=== PATIENT | male | born 1945 | race Caucasian/White ===

== ENCOUNTER → 2023-12-08 12:50 | Outpatient (REF) | payer MEDICARE, OTHER, SELFPAY ==
[2023-12-08 16:36] LABS: PSA, Total - Diagnostic 0.07 ng/ml (0.0-4.0)
== END ==
LOC: HWLAB 12:50
PROVIDERS: ATTENDING PHYSICIAN Specialist; FAMILY PHYSICIAN Family Medicine
DX: C61 Malignant neoplasm of prostate (principal)
CPT/HCPCS: 36415; 84153

== ENCOUNTER → 2024-03-22 12:41 | Outpatient (REF) | payer MEDICARE, SELFPAY | LOC: HWRAD 12:41 | PROVIDERS: ATTENDING PHYSICIAN Internal Medicine Cardiovascular Disease; FAMILY PHYSICIAN Family Medicine | DX: I71.21 Aneurysm of the ascending aorta, without rupture (principal) | CPT/HCPCS: 71250 ==

== ENCOUNTER → 2024-08-08 10:56 | Outpatient (REF) | payer MEDICARE, SELFPAY ==
[2024-08-08 16:10] LABS: ALT (SGPT) 21 U/L (0-50); AST (SGOT) 28 U/L (17-59); Albumin 4.4 g/dl (3.5-5.0); Alkaline Phosphatase 94 U/L (38-126); Blood Urea Nitrogen 19 mg/dl (9-20); Calcium 9.7 mg/dl (8.4-10.2); Carbon Dioxide 25 mmol/L (22-30); Chloride 106 mmol/L (98-107); Glucose 89 mg/dl (70-99); HDL Cholesterol 46 mg/dl; LDL Cholesterol, Calculated 57 mg/dl; Potassium 4.8 mmol/L (3.5-5.1); Sodium 142 mmol/L (135-145); Total Bilirubin 1.5 mg/dl (0.2-1.3); Total Cholesterol 116 mg/dl (50-199); Triglyceride 66 mg/dl (10-149); Very Low Density Lipoprotein 13 mg/dl (0-30); eGFR > 60.00
[2024-08-08 16:40] LABS: TSH 3.39 uIU/ml (0.47-4.68)
== END ==
LOC: HWLAB 10:56
PROVIDERS: ATTENDING PHYSICIAN Family Medicine; REFERRING PHYSICIAN Internal Medicine Cardiovascular Disease
DX: E78.5 Hyperlipidemia, unspecified (principal)
CPT/HCPCS: 36415; 80053; 80061; 84443

== ENCOUNTER 2024-09-28 11:39 | Emergency (ER) | payer MEDICARE, SELFPAY ==
[2024-09-28 11:43] VITALS: BP 114/77
--- NOTE | 2024-09-28 12:35 | ED.GENMED ---
History of Present Illness
<Shital Wolfe PA-C - Last Filed: 09/28/24 19:17>
General
Chief Complaint: Skin Surface Trauma
Source: patient
Exam Limitations: none
Time Seen by Provider: 09/28/24 12:23
Nursing documentation reviewed up to this point in time: agreed with
History of Present Illness
History of Present Illness:
79-year-old male past medical history of A-fib on Coumadin presents emergency department today with concerns of a bleeding from a skin tear. Patient reports that he was walking in his living room when he went to sit down in his recliner and when he
was pulling back the recliner, he cut his leg on the recliner handle. Patient states that he did not fall or did not lose consciousness. Patient states that the wound would not stop bleeding. Patient states that last time this happened he had
sutured the wound. Patient takes Coumadin for A-fib and is followed by cardiology
Past History
<Shital Wolfe PA-C - Last Filed: 09/28/24 19:17>
Past History
ED Past Medical History: Arrthythmia (afin), HTN, Hypercholesterolemia and Other (aortic sten)
ED Past Surgical History: Appendectomy and Orthopedic
Patient has exhibited threatening behavior?: No
PSI?: No
Social History
Personal:
Living: with family
Employment: Retired
Review of Systems
<Shital Wolef PA-C - Last Filed: 09/28/24 19:17>
Review of Systems
All Other Systems: ROS reviewed and negative except as documented in HPI and ROS
Phy Exam
<Shital Wolfe PA-C - Last Filed: 09/28/24 19:17>
Physical Exam
Physical Exam:
General: Patient is well appearing and in no acute distress; non-toxic
Skin: Actively bleeding 8 cm skin tear/laceration noted to the right anterior leg
Head: Normocephalic, atraumatic
Eyes: Sclera non-icteric. EOMs intact. PERRLA.
Cardiac: Regular rate and rhythm, no murmurs
Peripheral Vascular: No lower extremity swelling or edema, 2+ dorsalis pedis and posterior tibial pulses bilaterally
Pulm: Normal respiratory effort
Neuro: CN II-XII intact, no focal neurologic deficits.
Psychiatric: Appropriate mood and affect.
Course
<Shital Wolfe PA-C - Last Filed: 09/28/24 19:17>
Vital Signs
Initial and Last Documented VS:
Initial Vital Signs
Temp Pulse Resp BP Pulse Ox
98.4 F 70 16 114/77 96
09/28/24 11:43 09/28/24 11:43 09/28/24 11:43 09/28/24 11:43 09/28/24 11:43
Last Documented Vital Signs
Temp Pulse Resp BP Pulse Ox
98.4 F 70 16 114/77 96
09/28/24 11:43 09/28/24 11:43 09/28/24 12:22 09/28/24 11:43 09/28/24 11:43
<Jaime Loomis DO - Last Filed: 09/28/24 13:08>
Vital Signs
Initial and Last Documented VS:
Initial Vital Signs
Temp Pulse Resp BP Pulse Ox
98.4 F 70 16 114/77 96
09/28/24 11:43 09/28/24 11:43 09/28/24 11:43 09/28/24 11:43 09/28/24 11:43
Last Documented Vital Signs
Temp Pulse Resp BP Pulse Ox
98.4 F 70 16 114/77 96
09/28/24 11:43 09/28/24 11:43 09/28/24 12:22 09/28/24 11:43 09/28/24 11:43
Procedures
<Shital Wolfe PA-C - Last Filed: 09/28/24 19:17>
Laceration Closure
Right Anterior Leg:
Status of Wound: clean
Size of Wound in cm: 8
Description of Wound Edges: flap-well vascularized
Preparation: cleaned with saline
Anesthesia: 1% Lidocaine with epi
Revision/Debridement: minor revision
Wound exploration: explored to base- no FB
Type of Closure: single layer closure
Skin Closure Material: 4-0 prolene
Number of sutures: 4
Additional information:
The top of the wound was closed with 4 sutures, the bottom of the wound was attempted to be approximated with sutures however the sutures tore to the skin and the wound was approximated with Steri-Strips. Surgicel was also applied to ablate
bleeding area. Wound pressure dressing
<Shital Wolfe PA-C - Last Filed: 09/28/24 19:17>
MDM/Problems Addressed
Differential Diagnosis Includes:
see below
MDM/Problems Addressed:
NUMBER AND COMPLEXITY OF PROBLEMS ADDRESSED AT THE ENCOUNTER
� Chronic conditions affecting care: A-fib on Coumadin, CHF
� Acute Exacerbation and/or Progression of Chronic Illness:
� Differential Diagnosis includes: Actively bleeding wound, abrasion, laceration, neurovascular injury
AMOUNT AND/OR COMPLEXITY OF DATA TO BE REVIEWED AND ANALYZED
� I performed an independent evaluation of and my interpretation is:
X-rays: No indication for x-ray at this time
Other:
� Review of other/old records: Reviewed previous ER physician documentation, reviewed discharge summary from 05/20/2023 patient seen for dislocation of hip
� Clinical information was obtained by an independent historian: present with patient who also provided history regarding injury
� Prescriptions/Medications Considered but not given: none
� Further testing considered but not performed: X-rays not indicated at this time
RISK OF COMPLICATIONS AND/OR MORBIDITY OR MORTALITY OF PATIENT MANAGEMENT
� Social determinants of health affecting care: None
� Discussion with other providers: ER attending
� Escalation of care including admission/observation vs risk of discharge considered:
79-year-old male on Coumadin presents emergency department today with a skin tear. Is a well-vascularized flap. This was repaired using a combination of stitches and Steri-Strips. Patient was placed in a pressure dressing. Patient stable for
discharge.
<Shital Wolfe PA-C - Last Filed: 09/28/24 19:17>
*Pulse Oximetry
Patient hypoxic: no
*Critical Care Note
Total Time (30-74mins, 75-104mins- exclusive of procedures): Not Applicable
ED Attending Note
<Shital Wolfe PA-C - Last Filed: 09/28/24 19:17>
-
Portions of this chart may have been created with voice recognition software.� Occasional wrong word or��sound alike� substitutions may have occurred due to the inherent limitations of voice recognition software.
<Jaime Loomis DO - Last Filed: 09/28/24 13:08>
ED Attending Note
Patient seen and examined by attending physician: Yes
I performed the substantive portion of visit, reviewed & personally made and approve the management plan that is documented in note by myself or EILEEN.: Yes
ED Attending Note:
I evaluated the patient at bedside. The patient does have a rather large skin tear over the right mae. He states tetanus status is up-to-date. Will try to suture.
Discharge Plan
Departure
Patient Disposition: Home (Routine Discharge)
Date of Disposition: 09/28/24
Time of Disposition: 13:35
Patient with high blood pressure during this ER visit?: Yes
Condition: Good
Discharge Problem:
Laceration, Skin tear
Instructions: Laceration Repair With Stitches ([place]), [facility], BLOOD PRESSURE
Prescriptions:
No Action
pravastatin 40 MG tablet
40 mg PO HS
atenolol 25 MG tablet
25 mg PO HS 0RF
levothyroxine 50 MCG tablet
50 mcg PO DAILY
solifenacin [Vesicare] 10 MG tablet
10 mg PO HS
methenamine hippurate 1 GRAM tablet
1 g PO BID 0RF
warfarin [Jantoven] 5 MG tablet
5 mg PO HS Qty: 1 0RF
Rx Instructions:
Home medication.
Target INR for at least 2 weeks is 2.0 to 2.5 while joint is healing
digoxin 0.125 MG tablet
0.125 mg PO DAILY
Patient Comments:
per pt takes it every other day
Rx Instructions:
Hold if systolic blood pressure <130 while on Oxycodone.
mupirocin 2 % ointment
1 applic topical BID Qty: 1 0RF
Patient Comments:
patient has been applying to b/l nares since 06/05 pm , patient did apply to b/l nares thia am
famotidine 20 mg tablet
20 mg PO HS Qty: 30 0RF
Rx Instructions:
post-op
dexamethasone 4 mg tablet
4 mg PO BID Qty: 6 0RF
Rx Instructions:
take with food
post-op use only
docusate sodium [Colace] 100 mg capsule
100 mg PO BID Qty: 1 0RF
sennosides [Senokot] 8.6 mg tablet
17.2 mg PO BID Qty: 2 0RF
magnesium hydroxide [Milk of Magnesia] 400 mg/5 mL suspension
30 ml PO HS PRN (Reason: Constipation) Qty: 1 0RF
oxycodone 5 mg tablet
5 - 10 mg PO Q6HPRN PRN (Reason: 1 tab moderate-2 tabs severe pain) Qty: 30 0RF
Rx Instructions:
Dx surgery
ongoing therapy
Post-op use
acetaminophen 500 MG tablet
1,000 mg PO QID Qty: 0 0RF
Rx Instructions:
Do not exceed >4000 mg daily.
Referrals:
Justo Urrutia MD [Family Provider] -
Activity Restrictions/Additional Instructions:
4 stitches were placed at the top of your wound. You will need to have these taken out in 7-10 days.
Please keep our dressing in place for 24 hours. After 24 hours, you can change dressing once daily.
Please do not remove steri-strips, they should fall off on their own as the wound heels.
Please keep your leg elevated at home, this will help control the bleeding and oozing from your wound.
Please return to the emergency department should you experience dizziness, lightheadedness, persistent bleeding, chest pain, shortness of breath, or any other signs or symptoms concerning to you.
Interventions
Interventions:
*Risk Screen - Suicide Last Done: 09/28/24 11:43
*General Assessment Last Done: 09/28/24 11:43
*Neglect/Abuse Screening Last Done: 09/28/24 11:43
ED- Fall Risk Assessment Last Done: 09/28/24 13:55
*ED COVID-19 Vaccine History Last Done: 09/28/24 11:43
*Nursing Disposition Last Done: 09/28/24 13:55
ED-Skin Assessment Last Done: 09/28/24 13:53
Discharge Date and Time
Discharge Date/Time: 09/28/24 13:57
Print Language: [id number]
== END 2024-09-28 13:57 | disposition home or self-care (01) ==
LOC: EMR 11:39
PROVIDERS: EMERGENCY PHYSICIAN Emergency Medicine; FAMILY PHYSICIAN Family Medicine
DX: S81.811A Laceration without foreign body, right lower leg, initial encounter (principal); W26.9XXA Contact with unspecified sharp object(s), initial encounter; I11.0 Hypertensive heart disease with heart failure; I50.9 Heart failure, unspecified; I48.91 Unspecified atrial fibrillation
CPT/HCPCS: 99282; 12004

== ENCOUNTER → 2024-10-31 10:05 | Outpatient (REF) | payer MEDICARE, SELFPAY ==
[2024-10-31 11:03] LABS: % Basophils 1.4 % (0-2); % Eosinophils 17.1 % (0-6); % Immature Granulocytes 0.2 % (0-0.5); % Lymphocytes 16.6 % (20.5-51.1); % Monocytes 9.8 % (1.7-9.3); % Neutrophils 54.9 % (42.2-75.2); Absolute Basophils 0.1 10^3/uL (0-0.2); Absolute Eosinophils 1.1 10^3/uL (0-0.7); Absolute Lymphocytes 1.1 10^3/uL (1.2-3.4); Absolute Monocytes 0.6 10^3/uL (0.1-0.6); Absolute Neutrophils 3.5 10^3/uL (1.4-6.5); Hematocrit 41.4 % (39.0-52.0); Hemoglobin 13.9 g/dL (13.0-18.0); Mean Corp Hgb Conc. 33.6 g/dL (33.0-37.0); Mean Corpuscular Hgb 32.3 pg (27.0-31.0); Mean Corpuscular Volume 96.1 fL (80.0-94.0); Mean Platelet Volume 10.7 fL (7.4-10.4); Nucleated Red Blood Cells % 0 % (-); Platelet Count 121 10^3/uL (130-400); Red Blood Cell Count 4.31 10^6/uL (4.70-6.10); Red Cell Dist. Width 13.9 % (11.5-14.5); White Blood Cell Count 6.3 10^3/uL (4.8-10.8)
[2024-10-31 11:33] LABS: NT-proBNP 1540 pg/ml
[2024-10-31 11:46] LABS: Albumin 4.2 g/dl (3.5-5.0); Blood Urea Nitrogen 25 mg/dl (9-20); Calcium 9.5 mg/dl (8.4-10.2); Carbon Dioxide 32 mmol/L (22-30); Chloride 99 mmol/L (98-107); Glucose 50 mg/dl (70-99); Phosphorus 3.7 mg/dl (2.5-4.5); Potassium 4.3 mmol/L (3.5-5.1); Sodium 141 mmol/L (135-145); eGFR > 60.00
== END ==
LOC: RCS 10:05
PROVIDERS: ATTENDING PHYSICIAN Internal Medicine Cardiovascular Disease; FAMILY PHYSICIAN Family Medicine
DX: Z86.79 Personal history of other diseases of the circulatory system (principal); I50.31 Acute diastolic (congestive) heart failure
CPT/HCPCS: 36415; 80069; 83880; 85025; 93306

== ENCOUNTER → 2024-11-03 15:59 | Outpatient (REF) | payer MEDICARE, SELFPAY ==
[2024-11-03 17:26] LABS: INR 2.26; PT 25.1 Sec (11.4-14.6)
[2024-11-03 17:27] LABS: APTT 47.6 Sec (23.4-35.0)
[2024-11-03 17:39] LABS: Albumin 4.2 g/dl (3.5-5.0); Blood Urea Nitrogen 34 mg/dl (9-20); Calcium 9.5 mg/dl (8.4-10.2); Carbon Dioxide 31 mmol/L (22-30); Glucose 88 mg/dl (70-99); Phosphorus 3.6 mg/dl (2.5-4.5); eGFR > 60.00
[2024-11-03 17:42] LABS: Chloride 100 mmol/L (98-107); Potassium 4.4 mmol/L (3.5-5.1); Sodium 138 mmol/L (135-145)
== END ==
LOC: REG 15:59
PROVIDERS: ATTENDING PHYSICIAN Internal Medicine Cardiovascular Disease; FAMILY PHYSICIAN Family Medicine
DX: I48.0 Paroxysmal atrial fibrillation (principal)
CPT/HCPCS: 36415; 80069; 85610; 85730

== ENCOUNTER → 2024-11-22 06:43 | Outpatient (REF) | payer MEDICARE, SELFPAY ==
[2024-11-22 11:29] LABS: Blood Urea Nitrogen 42 mg/dl (9-20); Calcium 9.6 mg/dl (8.4-10.2); Carbon Dioxide 23 mmol/L (22-30); Chloride 105 mmol/L (98-107); Glucose 117 mg/dl (70-99); Potassium 4.3 mmol/L (3.5-5.1); Sodium 140 mmol/L (135-145); eGFR > 60.00
[2024-11-22 11:38] LABS: Glycohemoglobin (HgbA1c) 5.3 % (4.0-5.6)
== END ==
LOC: HWLAB 06:43
PROVIDERS: ATTENDING PHYSICIAN Internal Medicine Gastroenterology; FAMILY PHYSICIAN Family Medicine; REFERRING PHYSICIAN Thoracic Surgery (Cardiothoracic Vascular Surgery)
DX: I71.21 Aneurysm of the ascending aorta, without rupture (principal); Z01.818 Encounter for other preprocedural examination; E16.2 Hypoglycemia, unspecified
CPT/HCPCS: 36415; 71250; 80048; 83036

== ENCOUNTER → 2025-01-24 12:59 | Outpatient (REF) | payer MEDICARE, SELFPAY ==
[2025-01-24 16:50] LABS: PSA, Total - Diagnostic 3.82 ng/ml (0.0-4.0)
== END ==
LOC: HWLAB 12:59
PROVIDERS: ATTENDING PHYSICIAN Specialist; FAMILY PHYSICIAN Family Medicine
DX: C61 Malignant neoplasm of prostate (principal)
CPT/HCPCS: 36415; 84153

== ENCOUNTER → 2025-03-02 11:22 | Outpatient (REF) | payer MEDICARE, SELFPAY ==
[2025-03-02 16:41] LABS: % Basophils 0.7 % (0-2); % Eosinophils 7.4 % (0-6); % Immature Granulocytes 0.4 % (0-0.5); % Lymphocytes 12.3 % (20.5-51.1); % Monocytes 9.5 % (1.7-9.3); % Neutrophils 69.7 % (42.2-75.2); Absolute Eosinophils 0.4 10^3/uL (0-0.7); Absolute Lymphocytes 0.7 10^3/uL (1.2-3.4); Absolute Monocytes 0.5 10^3/uL (0.1-0.6); Hematocrit 37.8 % (39.0-52.0); Hemoglobin 12.4 g/dL (13.0-18.0); Mean Corp Hgb Conc. 32.8 g/dL (33.0-37.0); Mean Corpuscular Volume 94.5 fL (80.0-94.0); Nucleated Red Blood Cells % 0 % (-); Platelet Count 114 10^3/uL (130-400); Red Cell Dist. Width 14.8 % (11.5-14.5); White Blood Cell Count 5.7 10^3/uL (4.8-10.8)
== END ==
LOC: HWLAB 11:22
PROVIDERS: ATTENDING PHYSICIAN Internal Medicine Gastroenterology; FAMILY PHYSICIAN Family Medicine; REFERRING PHYSICIAN Internal Medicine Cardiovascular Disease
DX: K62.5 Hemorrhage of anus and rectum (principal)
CPT/HCPCS: 36415; 85025

== ENCOUNTER 2025-07-17 13:06 | Inpatient (IN) | payer MEDICARE, SELFPAY ==
[2025-07-17] VITALS (52 sets, daily range): BP systolic 72–125; BP diastolic 41–78; BMI 27.5; BMI 28.3
--- NOTE | 2025-07-17 11:22 | ED.GENMED ---
History of Present Illness
<aCrlos Bower PA-C - Last Filed: 07/17/25 14:10>
General
Chief Complaint: Fever
Source: patient, records and ambulance crew
Time Seen by Provider: 07/17/25 10:58
History of Present Illness
History of Present Illness:
80-year-old male with extensive cardiac past medical history including atrial fibrillation, CHF, previous endocarditis status post pacemaker placement and aortic valve/mitral valve replacement, history of prostate cancer status post prostatectomy
presenting to the ER with EMS from home where he lives with his for evaluation of fever and generalized weakness for the last few days, unable to get up and out of bed, had soiled himself with both urine and stool. Unclear as to how long
patient has been in bed unable to get up, he is awake alert and oriented at time of my exam and is currently without any pain. He did note that he had some pain to his bilateral lower extremities a couple of days ago but that it was not anything
out of the ordinary for him. He denies any abdominal pain or URI-like symptoms. No known sick contacts although patient does note his at home currently has a fractured ankle and unable to help him get around the house.
Past History
<Carlos Bower PA-C - Last Filed: 07/17/25 14:10>
Past History
ED Past Medical History: Arrthythmia (afin), CHF, HTN, Hypercholesterolemia, Valvular disease and Other (aortic sten)
ED Past Surgical History: Appendectomy, Cardiac, Orthopedic, Urological and Other
Patient has exhibited threatening behavior?: No
PSI?: No
Social History
Tobacco: Non-smoker
Alcohol: None
Drug: None
Personal:
Living: with family
Employment: Retired
Review of Systems
<Carlos Bower PA-C - Last Filed: 07/17/25 14:10>
Review of Systems
All Other Systems: ROS reviewed and negative except as documented in HPI and ROS
Phy Exam
<Carlos Bower PA-C - Last Filed: 07/17/25 14:10>
Physical Exam
Physical Exam:
GENERAL: Alert , in no apparent distress, somewhat pale, dry mucous membranes, malodorous and soiled in brown stool
EYE: clear conjunctiva b/l
HEAD: NCAT
ENT: o/p clr, dry mucous membranes
CARDIAC: Regular rate and rhythm .
LUNGS: Clear breath sounds bilaterally, no acute respiratory distress, no wheezes/rales/rhonchi
ABDOMEN: Soft, without focal tenderness, no r/g, no cvat
NEUROLOGICAL: Alert and oriented
SKIN: Warm and dry, skin intact.
MUSCULOSKELETAL: Left lower extremity is edematous compared to the right, ruborous/erythematous, no tenderness and intact and equal sensation compared to the right lower extremity. The right lower extremity is slightly dusky in appearance, cooler
to the touch but intact and equal sensation throughout and able to range of motion the knee ankle and digits without difficulty
PSYCH: Normal and appropriate interaction.
Scores
<Carlos Bower PA-C - Last Filed: 07/17/25 14:10>
Heart Failure Risk
Heart Failure Risk Score: Not Applicable
Heart Score for Chest Pain Patients
STEMI patient?: Not applicable
Withdrawal Assessment of Alcohol
Withdrawal Assessment Completed?: Not applicable
Sepsis
<Carlos Bower PA-C - Last Filed: 07/17/25 14:10>
Sepsis Screening
Sepsis Assessment: Severe Sepsis
Sepsis Screening: Lactate >2mmol/L and ARF-Creatinine >2.0
Sepsis Screen
Sepsis Screen: Severe Sepsis
Date: 07/17/25
Time: 14:10
Course
<Carlos Bower PA-C - Last Filed: 07/17/25 14:10>
Orders/Labs/Results
Orders:
Orders
07/17/25 11:10
Cardiac Monitoring- Treatment ONCE
STOOL [C difficile Antigen & Toxins] Urgent
TY Source: Feces/Stool
Specimen Description:
Stool Culture Urgent
TY Source: Feces/Stool
Specimen Description:
0.9% Sodium Chloride 1000 ml [Nss] 2,000 ml IV NOW STA
07/17/25 11:11
Electrocardiogram (*1) Urgent
Reason for Study: Other
Other Reason for Exam: sepsis
EKG- Treatment ONCE
CR Chest Portable - 1 View Urgent
Comment:
Reason For Exam: weakness, fever
Reason Study Needs to be Portable: Patient Unstable
07/17/25 11:28
COVID-19 Antigen Urgent
Source: Nasal Swab
CPK [Creatine Phosphokinase] Urgent
Complete Blood Count/With Diff Urgent
Comprehensive Metabolic Panel Urgent
Lactic Acid Q4H
Comment: CANCEL 2nd LACTIC ACID IF 1st LACTIC ACID IS LESS THAN 2
Manual Differential Urgent
PTT Urgent
Prothrombin Time Urgent
Blood Culture Q30M
TY Source: Blood/Venous
Specimen Description:
Influenza A+B Rapid Molecular Urgent
TY Source: Nasal Swab
Specimen Description:
07/17/25 11:33
Urinalysis Reflex To Culture Urgent
Date Specimen was Collected: 07/17/25
Time Specimen was Collected: 11:28
Urine Microscopic Reflex Cult Urgent
Blood Culture Q30M
TY Source: Blood/Venous
Specimen Description:
Urine Culture Urgent
TY Source: U
Specimen Description:
Date Specimen was Collected: 07/17/25
Time Specimen was Collected: 11:28
07/17/25 12:04
0.9% Sodium Chloride 1000 ml [Nss] 1,000 ml IV BOLUS
Acetaminophen [Tylenol] 1,000 mg PO NOW STA
07/17/25 12:10
Piperacillin/Tazo 4.5 Gram [Zosyn] 4.5 gram in 100 ml IV NOW
07/17/25 12:23
CT Abd/pel Without Iv Or Oral Urgent
Comment:
Reason For Exam: sepsis, eval for urinary obstruction
07/17/25 12:27
Vancomycin [Vancocin] 2,000 mg 0.9% Sodium Chloride 500 ml [Nss] 500 ml IV NOW
07/17/25 12:53
Admit/Transfer Patient As Directed
Co-Sign Provider:
Level of Care: Inpatient admission
Assign to:: Telemetry
Physician / Group: moise
Diagnosis: sepsis cellulitis
Reason for Telemetry: Arrhythmia
Date to Stop Telemetry: 07/20/25
Time to Stop Telemetry: 11:00
Reason for Hospitalization: sepsis cellulitis
Expected length of stay greater than two midnights?: Yes
ELOS- Estimated Length of Stay in days: 2
I certify the patient meets the requirements for IP care: Yes
07/17/25 12:54
Code Status As Directed
Resuscitation Status: Full Code
PRN Pain Medication Management As Directed
May give lesser potent ordered pain med per pt: Yes
preference::
Protocol:: Medication orders for pain may be administered in a
manner that supports deferring to patient preference
when the pt is:
- Requesting an ordered lesser potent pain medication.
Least to most potent pain medications are defined
as: acetaminophen < NSAID < tramadol < opioids
(morphine, oxycodone, hydromorphone).
- Requesting a lesser dose of the same medication IF
ORDERED.
- Requesting a less intrusive route of administration
if both routes are prescribed by the provider (PO <
IV).
07/17/25 15:15
Lactic Acid Q4H
Comment: CANCEL 2nd LACTIC ACID IF 1st LACTIC ACID IS LESS THAN 2
07/20/25 11:00
DC Protocol for Telemetry ONCE
Abnormal Lab Results
07/17/25 07/17/25
11:28 11:33
RBC 4.30 L 10^6/uL
(4.70-6.10)
MCV 95.3 H fL
(80.0-94.0)
MCH 32.8 H pg
(27.0-31.0)
RDW 15.3 H %
(11.5-14.5)
Plt Count 79 L 10^3/uL
(130-400)
MPV 11.3 H fL
(7.4-10.4)
Abs Neuts (Manual) 7.6 H 10^3/uL
(1.4-6.5)
Band Neutrophils 34 H %
(0-3)
PT 34.6 H Sec
(11.4-14.6)
APTT 52.2 H Sec
(23.4-35.0)
Sodium 134 L mmol/L
(135-145)
Carbon Dioxide 20 L mmol/L
(22-30)
BUN 59 H mg/dl
(9-20)
Creatinine 2.3 H mg/dL
(0.7-1.3)
Lactic Acid 3.5 H mmol/L
(0.7-2.0)
Total Bilirubin 3.7 H mg/dl
(0.2-1.3)
AST 77 H U/L
(17-59)
Creatine Kinase 994 H U/L
(55-170)
Ur Occult Blood Reflex 4+ A
(Negative)
Urine Bilirubin 1+ A
(Negative)
Leukocyte Esterase Rfl 2+ A
(Negative)
Urine RBC 11-15 A /HPF
(0-2)
Urine WBC (Reflex) 26-30 A /HPF
(0-5)
Urine Bacteria (Reflex) Moderate A
(Negative)
Urine Albumin (Reflex) 3+ A
(Neg - Trace)
07/17/25 11:28
07/17/25 11:28
Vital Signs
Initial and Last Documented VS:
Initial Vital Signs
BP
115/60
07/17/25 11:19
Last Documented Vital Signs
Temp Pulse Resp BP Pulse Ox
103.1 F H 72 36 125/54 91
07/17/25 11:23 07/17/25 14:00 07/17/25 14:00 07/17/25 13:00 07/17/25 13:45
Alllt;Skyler Reaves, DO - Last Filed: 07/17/25 12:29>
Orders/Labs/Results
Orders:
Orders
07/17/25 11:10
Cardiac Monitoring- Treatment ONCE
STOOL [C difficile Antigen & Toxins] Urgent
TY Source: Feces/Stool
Specimen Description:
Stool Culture Urgent
TY Source: Feces/Stool
Specimen Description:
0.9% Sodium Chloride 1000 ml [Nss] 2,000 ml IV NOW STA
07/17/25 11:11
Electrocardiogram (*1) Urgent
Reason for Study: Other
Other Reason for Exam: sepsis
EKG- Treatment ONCE
CR Chest Portable - 1 View Urgent
Comment:
Reason For Exam: weakness, fever
Reason Study Needs to be Portable: Patient Unstable
07/17/25 11:28
COVID-19 Antigen Urgent
Source: Nasal Swab
CPK [Creatine Phosphokinase] Urgent
Complete Blood Count/With Diff Urgent
Comprehensive Metabolic Panel Urgent
Lactic Acid Q4H
Comment: CANCEL 2nd LACTIC ACID IF 1st LACTIC ACID IS LESS THAN 2
Manual Differential Urgent
PTT Urgent
Prothrombin Time Urgent
Blood Culture Q30M
TY Source: Blood/Venous
Specimen Description:
Influenza A+B Rapid Molecular Urgent
TY Source: Nasal Swab
Specimen Description:
07/17/25 11:33
Urinalysis Reflex To Culture Urgent
Date Specimen was Collected: 07/17/25
Time Specimen was Collected: 11:28
Urine Microscopic Reflex Cult Urgent
Blood Culture Q30M
TY Source: Blood/Venous
Specimen Description:
Urine Culture Urgent
TY Source: U
Specimen Description:
Date Specimen was Collected: 07/17/25
Time Specimen was Collected: 11:28
07/17/25 12:04
0.9% Sodium Chloride 1000 ml [Nss] 1,000 ml IV BOLUS
Acetaminophen [Tylenol] 1,000 mg PO NOW STA
07/17/25 12:10
Piperacillin/Tazo 4.5 Gram [Zosyn] 4.5 gram in 100 ml IV NOW
07/17/25 12:23
CT Abd/pel Without Iv Or Oral Urgent
Comment:
Reason For Exam: sepsis, eval for urinary obstruction
07/17/25 12:27
Vancomycin [Vancocin] 2,000 mg 0.9% Sodium Chloride 500 ml [Nss] 500 ml IV NOW
07/17/25 12:53
Admit/Transfer Patient As Directed
Co-Sign Provider:
Level of Care: Inpatient admission
Assign to:: Telemetry
Physician / Group: moise
Diagnosis: sepsis cellulitis
Reason for Telemetry: Arrhythmia
Date to Stop Telemetry: 07/20/25
Time to Stop Telemetry: 11:00
Reason for Hospitalization: sepsis cellulitis
Expected length of stay greater than two midnights?: Yes
ELOS- Estimated Length of Stay in days: 2
I certify the patient meets the requirements for IP care: Yes
07/17/25 12:54
Code Status As Directed
Resuscitation Status: Full Code
PRN Pain Medication Management As Directed
May give lesser potent ordered pain med per pt: Yes
preference::
Protocol:: Medication orders for pain may be administered in a
manner that supports deferring to patient preference
when the pt is:
- Requesting an ordered lesser potent pain medication.
Least to most potent pain medications are defined
as: acetaminophen < NSAID < tramadol < opioids
(morphine, oxycodone, hydromorphone).
- Requesting a lesser dose of the same medication IF
ORDERED.
- Requesting a less intrusive route of administration
if both routes are prescribed by the provider (PO <
IV).
07/17/25 15:15
Lactic Acid Q4H
Comment: CANCEL 2nd LACTIC ACID IF 1st LACTIC ACID IS LESS THAN 2
07/20/25 11:00
DC Protocol for Telemetry ONCE
Abnormal Lab Results
07/17/25 07/17/25
11:28 11:33
RBC 4.30 L 10^6/uL
(4.70-6.10)
MCV 95.3 H fL
(80.0-94.0)
MCH 32.8 H pg
(27.0-31.0)
RDW 15.3 H %
(11.5-14.5)
Plt Count 79 L 10^3/uL
(130-400)
MPV 11.3 H fL
(7.4-10.4)
Abs Neuts (Manual) 7.6 H 10^3/uL
(1.4-6.5)
Band Neutrophils 34 H %
(0-3)
PT 34.6 H Sec
(11.4-14.6)
APTT 52.2 H Sec
(23.4-35.0)
Sodium 134 L mmol/L
(135-145)
Carbon Dioxide 20 L mmol/L
(22-30)
BUN 59 H mg/dl
(9-20)
Creatinine 2.3 H mg/dL
(0.7-1.3)
Lactic Acid 3.5 H mmol/L
(0.7-2.0)
Total Bilirubin 3.7 H mg/dl
(0.2-1.3)
AST 77 H U/L
(17-59)
Creatine Kinase 994 H U/L
(55-170)
Ur Occult Blood Reflex 4+ A
(Negative)
Urine Bilirubin 1+ A
(Negative)
Leukocyte Esterase Rfl 2+ A
(Negative)
Urine RBC 11-15 A /HPF
(0-2)
Urine WBC (Reflex) 26-30 A /HPF
(0-5)
Urine Bacteria (Reflex) Moderate A
(Negative)
Urine Albumin (Reflex) 3+ A
(Neg - Trace)
07/17/25 11:28
07/17/25 11:28
Vital Signs
Initial and Last Documented VS:
Initial Vital Signs
BP
115/60
07/17/25 11:19
Last Documented Vital Signs
Temp Pulse Resp BP Pulse Ox
103.1 F H 72 36 125/54 91
07/17/25 11:23 07/17/25 14:00 07/17/25 14:00 07/17/25 13:00 07/17/25 13:45
<Carlos Bower PA-C - Last Filed: 07/17/25 14:10>
MDM/Problems Addressed
Differential Diagnosis Includes:
Sepsis
Bacteremia
C. difficile or other infectious diarrhea
Dehydration
Electrolyte imbalance
Acute kidney injury
Rhabdomyolysis
UTI
COVID/flu/other viral etiology
MDM/Problems Addressed:
80-year-old male presenting to the ER for evaluation of fever, generalized weakness, had been laying in bed for an extended period of time, patient so weak unable to get out of bed to use the restroom and had soiled himself in the bed. Patient
arrives covered in brown stool. No focal symptoms. Sepsis workup initiated. Fluids ordered. Anticipate admission.
<Carlos Bower PA-C - Last Filed: 07/17/25 14:10>
*Radiology
Radiology exam reviewed: radiology read reviewed
*Pulse Oximetry
SaO2: 98
Oxygen Mode of Delivery: Room air
Patient hypoxic: no
*[employer] Interpretation
Rate: normal
Heart Rate: 86
Rhythm: sinus
*Critical Care Note
Total Time (30-74mins, 75-104mins- exclusive of procedures): 30
comment:
Critical care statement: A total of 30 minutes of critical care time was provided for this patient. This includes management of unstable vital signs, evaluation of the patient at bedside, reviewing the patient's pertinent medical records, discussion
with consultants, review of old EKGs and review of pertinent medical records. This time with separate from time utilized to perform the aforementioned documented procedures
Data Reviewed
Review of Other/Old Records Reveals: Labs and Records
<Carlos Bower PA-C - Last Filed: 07/17/25 14:10>
Patient Management
Discussion with other providers: Hospitalist
Escalation/DeEscalation of care consider admission/obs:
Patient's labs show a significant acute kidney injury and rhabdomyolysis. Lactic acid greater than 3. Question urinary tract infection. Broad-spectrum antibiotics ordered for infectious etiologies. Hospitalist team notified and accepts for
continued evaluation and treatment of sepsis.
ED Attending Note
<Carlos Bower PA-C - Last Filed: 07/17/25 14:10>
-
Portions of this chart may have been created with voice recognition software.� Occasional wrong word or��sound alike� substitutions may have occurred due to the inherent limitations of voice recognition software.
<Skyler Reaves DO - Last Filed: 07/17/25 12:29>
ED Attending Note
Patient seen and examined by attending physician: Yes
I performed the substantive portion of visit, reviewed & personally made and approve the management plan that is documented in note by myself or EILEEN.: Yes
ED Attending Note:
I agree with Augustin's note
Patient presents with fever, chills, body aches.
General: Awake, patient appears ill, tremors versus rigors
Vitals: Febrile, tachycardia
Head: Atraumatic
Eyes: Pupils equal, EOMI
Throat: Airway intact, no exudates, dry mucosa
Neck: Trachea midline
Lungs: Coarse breath sound
Heart: Regular rate, no murmurs
Abd: Soft, Nontender, No pulsatile mass
Neuro: Grossly nonfocal
Skin: Warm, dry, no rash
Extremities: pulses equal b/l, left leg shows significant edema, erythema.
Sepsis from cellulitis, urinary tract infection, perhaps obstructing stone. Sepsis fluid bolus ordered by Augustin. Broad-spectrum IV antibiotics ordered. Will get a CT to make sure there is no obstructing stone. Patient obviously require
hospitalization to IMU over the ICU.
Discharge Plan
Departure
Patient Disposition: Admit
Date of Disposition: 07/17/25
Time of Disposition: 12:22
Presentation/result/management discussed w/ accepting MD/DO: Hospitalist
Discharge Problem:
Sepsis, TANA (acute kidney injury), Rhabdomyolysis
Interventions
Interventions:
*Risk Screen - Suicide Last Done: 07/17/25 11:26
*General Assessment Last Done: 07/17/25 11:26
*Neglect/Abuse Screening Last Done: 07/17/25 11:26
*ED- Fall Risk Assessment Last Done: 07/17/25 11:26
*ED COVID-19 Vaccine History Last Done: 07/17/25 11:26
*ED Influenza Vaccine History Last Done: 07/17/25 11:26
ED- Neurological Assessment Last Done: 07/17/25 11:47
ED-Skin Assessment Last Done: 07/17/25 11:47
[2025-07-17] MEDS: NSS 2000 ML IV (11:39)
[2025-07-17 12:01] LABS: Hematocrit 41.0 % (39.0-52.0); Hemoglobin 14.1 g/dL (13.0-18.0); Mean Corp Hgb Conc. 34.4 g/dL (33.0-37.0); Mean Corpuscular Volume 95.3 fL (80.0-94.0); Platelet Count 79 10^3/uL (130-400); Red Cell Dist. Width 15.3 % (11.5-14.5)
[2025-07-17 12:03] LABS: INR 3.46; PT 34.6 Sec (11.4-14.6)
[2025-07-17 12:04] LABS: APTT 52.2 Sec (23.4-35.0)
[2025-07-17 12:07] LABS: ALT (SGPT) 33 U/L (0-50); AST (SGOT) 77 U/L (17-59); Alkaline Phosphatase 65 U/L (38-126); Blood Urea Nitrogen 59 mg/dl (9-20); Calcium 8.9 mg/dl (8.4-10.2); Carbon Dioxide 20 mmol/L (22-30); Chloride 103 mmol/L (98-107); Estimated Creatinine Clearance 32 ml/min; Glucose 73 mg/dl (70-99); Potassium 5.0 mmol/L (3.5-5.1); Sodium 134 mmol/L (135-145); Total Protein 7.6 g/dl (6.3-8.2); eGFR 28.35
[2025-07-17 12:11] LABS: Urine Character Clear (Clear)
[2025-07-17] MEDS: NSS 1000 IV ×2 (12:15→18:00)
[2025-07-17] MEDS: TYLENOL 1000 MG PO (12:15)
[2025-07-17] MEDS: ZOSYN 100 IV (12:15)
[2025-07-17 12:16] LABS: Albumin 3.7 g/dl (3.5-5.0)
[2025-07-17 12:23] LABS: COVID-19 Antigen Negative (Negative)
[2025-07-17 12:30] LABS: Urine Squamous Cell 16-20 /LPF (Few); Urine Urothelial Cell 0-2 /LPF (FEW)
[2025-07-17 12:32] LABS: Urine White Cell 26-30 /HPF (0-5)
[2025-07-17] MEDS: VANCOCIN 540 MG IV (12:52)
--- NOTE | 2025-07-17 12:58 | HPS.HSE ---
Family Physician
-
Family Physician: NOT KNOW UNKNOWN - PT DOES
Chief Complaint
-
weakness
History of Present Illness
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
bioprosthetic status post aortic root dissection in 2014, thoracic aortic aneurysm, hypertension, constipation, essential tremor, prostate cancer in 2002 status post radical prostatectomy and radiation, hypothyroidism, overactive bladder,
thrombocytopenia, osteoarthritis, hyperlipidemia, bleeding from rectal prolapse, presenting for fever and generalized weakness for the past few days. He was unable to get out of bed and soiled himself with both urine and stool. Unclear as to how
long patient was in bed. He did have some pain in his bilateral lower extremities a couple days ago which is nothing out of ordinary for him. He complains of left lower extremity redness and pain and swelling at this time. Denies abdominal pain
or upper respiratory infection symptoms. Denies urinary symptoms. Denies any sick contacts.
He states that he occasionally has rectal bleeding secondary to a rectal prolapse. He has chronic urinary incontinence after
Denies smoking or alcohol use.
Medical History
Past Medical History
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
bioprosthetic status post aortic root dissection in 2014, thoracic aortic aneurysm, hypertension, c)
Past Surgical History: Reports None
Social History
Tobacco: Non-smoker
Alcohol: None
Drug: None
Family History
Family History: Not pertinent
Allergies / Home Medications
Allergies reflects when Allergies were last updated in [facility].
Home Medications with original date entered in [facility]
Allergy/Medication List:
Allergies
Allergy/AdvReac Type Severity Reaction Status Date / Time
bromide salts ([place]) Allergy Rash Verified 09/28/24 11:54
Home Medications
pravastatin 40 mg tablet 40 mg PO HS High cholesterol 08/01/08
atenolol 25 mg tablet 25 mg PO HS 07/28/17
levothyroxine 50 mcg tablet 50 mcg PO DAILY Thyroid 06/18/21
solifenacin 10 mg tablet (Vesicare) 10 mg PO HS OVERACTIVE BLADDER 06/18/21
methenamine hippurate 1 gram tablet 1 g PO BID 07/09/21
warfarin 5 mg tablet (Jantoven) 5 mg PO HS #1 tab 09/10/21
digoxin 125 mcg (0.125 mg) tablet 0.125 mg PO DAILY Heart disease/condition 05/19/23
mupirocin 2 % topical ointment 1 applic topical BID infection prevention #1 tube 05/21/23
acetaminophen 500 mg tablet 1,000 mg (2 x 500 mg) PO QID #0 tabs 06/09/23
dexamethasone 4 mg tablet 4 mg PO BID inflammation #6 tabs 06/09/23
docusate sodium 100 mg capsule (Colace) 100 mg PO BID stool softner #1 cap 06/09/23
famotidine 20 mg tablet 20 mg PO HS GI prophylaxis #30 tabs 06/09/23
magnesium hydroxide 400 mg/5 mL oral suspension (Milk of Magnesia) 30 ml PO HS PRN Constipation #1 mL 06/09/23
oxycodone 5 mg tablet 5 - 10 mg (1 - 2 x 5 mg) PO Q6HPRN PRN 1 tab moderate-2 tabs severe pain #30 tabs 06/09/23
sennosides 8.6 mg tablet (Senokot) 17.2 mg (2 x 8.6 mg) PO BID laxative #2 tabs 06/09/23
Review of Systems
-
History Source: Patient
A 12 point ROS was completed and negative except as noted: Yes
Constitutional: Reports No Symptoms
EENT: Reports No Symptoms
Respiratory: Reports No Symptoms
Cardiac: Reports No Symptoms
Abdomen/GI: Reports No Symptoms
: Reports No Symptoms
Musculoskeletal: Reports No Symptoms
Skin: Reports See HPI
Neurological: Reports No Symptoms
Endocrine: Reports No Symptoms
Hematologic/Lymphatic: Reports No Symptoms
Psych: Reports No Symptoms
Physical Exam
Vital Signs
Vital Signs
Temp Pulse Resp BP Pulse Ox
103.1 F H 80 27 115/60 92
07/17/25 11:23 07/17/25 11:45 07/17/25 11:45 07/17/25 11:23 07/17/25 11:47
Physical Exam
General: Well Developed, Well Nourished and No Apparent Distress
HEENT: NormoCephalic, Moist mucous membranes and Atraumatic
Respiratory: Clear
Cardiac: S1/S2 and Regular Rhythm; No Murmur or Rub
GI: Soft, Non Tender, Non Distended and Normal Bowel Sounds; No Organomegaly
Rectal: Deferred by Provider
Musculoskeletal: No Clubbing, No Cyanosis and No Edema
Skin: Other (left leg erythematous, swollen and warm ); No Rash
Neuro: Nonfocal/grossly intact
Laboratory Results
-
07/17/25 11:28
07/17/25 11:28
Laboratory Results
PT 34.6 Sec (11.4-14.6) H 07/17/25 11:28
INR 3.46 07/17/25 11:28
APTT 52.2 Sec (23.4-35.0) H 07/17/25 11:28
Lactic Acid 3.5 mmol/L (0.7-2.0) H 07/17/25 11:28
Total Bilirubin 3.7 mg/dl (0.2-1.3) H 07/17/25 11:28
AST 77 U/L (17-59) H 07/17/25 11:28
ALT 33 U/L (0-50) 07/17/25 11:28
Alkaline Phosphatase 65 U/L (38-126) 07/17/25 11:28
Data Reviewed
-
Lab Data: Labs Reviewed by me
Old Records: Reviewed
Impression/Plan
-
IMPRESSION:
PLAN:
# Sepsis (fever, tachypnea) secondary to likely left lower extremity cellulitis
-Lactic acid 3.5
-Urinalysis unremarkable
-Chest x-ray unremarkable
- Check blood cultures to rule out endocarditis
-IV fluids
- Empiric vancomycin/ceftriaxone
- INR of 3.46 so DVT unlikely
# Mild rhabdomyolysis
- Mild transaminitis, CK of 994
- IV fluids
# Acute kidney injury likely prerenal
-IV fluids
-CT abdomen pelvis pending to rule out urinary obstruction
Persistent atrial fibrillation
- Continue digoxin
- Continue Coumadin
Complete heart block status post pacemaker
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
History of aortic valve replacement bioprosthetic valve complicated by aortic root dissection in 2014
Thoracic aortic aneurysm
Essential hypertension
- Continue atenolol
Constipation
Essential tremor
Prostate cancer in 2002 status post radical prostatectomy and radiation with residual urinary incontinence
- Bladder scan protocol
Occasional rectal bleeding secondary to rectal prolapse
Hypothyroidism
- Continue levothyroxine
Overactive bladder
Chronic thrombocytopenia
Osteoarthritis
Hyperlipidemia
- Continue statin
Full code
DVT prophylaxis�Coumadin
Regular diet
[2025-07-17 13:19] LABS: Absolute Neutrophils -Man Diff 7.6 10^3/uL (1.4-6.5)
[2025-07-17 13:20] LABS: Normal RBC Morphology Yes; Platelets Checked Yes; Total Cells Counted 100
[2025-07-17] MEDS: LEVOPHED 250 IV ×2 (14:35→21:30)
--- NOTE | 2025-07-17 16:16 | CON.INTV ---
Addendum entered and electronically signed by Vito Gonzalez MD 07/17/25 17:08:
Dr. Brody updated over the phone.
Confirmed full code.
She was told patient is critically ill for possible urinary tract infection and possibly soft tissue infection of the leg.
Patient states that the legs have not changed in appearance for quite some time.
Original Note:
Consultation
Consultation Request
Date/Time Consultation Requested: 07/17/2024
Date/Time Consultation Performed: 07/17/2025
Requesting Provider: Dr. Henry
Performing Provider: Dr. Vito Brody
Reason for Consultation: Septic shock
Medical History
-
History of Present Illness:
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
post aortic root dissection 2014, thoracic aortic aneurysm, hypertension, constipation, essential tremors, history of prostate cancer 2003 status post radical prostatectomy and radiation, history of rectal prolapse with bleeding in the past who
presented with fever and generalized weakness for few days.
Per history, patient was not able to get off his bed and was soiled with urine and stool.
Complains of left lower extremity redness, pain and swelling.
Denies nausea, vomiting or abdominal pain.
Denies respiratory symptoms.
Denies any sick contacts
Denies swallowing problems.
Past Medical History
Past Medical History: Other (See assessment and plan)
Social History
Tobacco: Non-smoker
Alcohol: None
Drug: None
Personal:
Living: With Family (Lives with )
Family History
Family History: Reviewed & Not Pertinent
Allergies / Home Medications
Allergies
Allergy/AdvReac Type Severity Reaction Status Date / Time
bromide salts ([place]) Allergy Rash Verified 09/28/24 11:54
Home Medications
�Medication �Instructions �Recorded �Confirmed �Last Taken �Type
pravastatin 40 mg tablet 40 mg PO HS High cholesterol 08/01/08 07/17/25 07/16/25 History
atenolol 25 mg tablet 25 mg PO HS 07/28/17 07/17/25 07/16/25 Rx
levothyroxine 50 mcg tablet 50 mcg PO DAILY Thyroid 06/18/21 07/17/25 06/07/23 20:00 History
solifenacin 10 mg tablet (Vesicare) 10 mg PO HS OVERACTIVE BLADDER 06/18/21 07/17/25 07/16/25 History
methenamine hippurate 1 gram tablet 1 g PO BID 07/09/21 07/17/25 06/07/23 20:00 Rx
digoxin 125 mcg (0.125 mg) tablet 0.125 mg PO DAILY Heart 05/19/23 07/17/25 06/07/23 20:00 History
disease/condition
ibuprofen 200 mg tablet (Advil) 400 mg PO Q8HPRN PRN mild pain 07/17/25 07/17/25 07/15/25 History
warfarin 5 mg tablet 7.5 mg PO TUTH@1900 07/17/25 07/17/25 07/13/25 History
warfarin 5 mg tablet (Jantoven) 5 mg PO SUMOWEFRSA@1900 07/17/25 07/17/25 07/16/25 History
Review of Systems
-
History Source: Patient
All other systems: Negative unless noted
Vitals / Labs / Diagnostic Testing
Vital Signs
Temp Pulse Resp BP Pulse Ox
98.1 F 72 40 93/57 91
07/17/25 14:22 07/17/25 15:45 07/17/25 15:45 07/17/25 15:45 07/17/25 15:40
Lab Data
07/17/25 11:28
07/17/25 11:28
Laboratory Results
07/17/25
11:28
PT 34.6 H
INR 3.46
APTT 52.2 H
Microbiology
07/17/25 11:28 Nasal Swab Influenza Types A & B (CHRIS) - Final
Negative for Influenza A & B, NAAT
Negative results must be combined with clinical observations
and patient history.
Nucleic Acid Amplification test (NAAT)performed on the
[employer] platform.
Diagnostic Testing:
Physical Exam
-
HEENT: Normocephalic
Cardiovascular: S1/S2 and Murmur
Respiratory: Non-Labored Respirations
GI: Soft and Non Distended
Neurology: No Motor Deficits, Other (Follows commands.) and Other (Somnolent but easily aroused. )
Skin: Dry and Other (Chronic venous stasis bilaterally- LLE red and warm. )
General: Comfortable and Other (Cachectic)
Assessment
-
80-year-old man with complicated cardiac history noted. Presented with fever, generalized weakness for the past few days. Patient was not able to get out of bed and he was soiled on stool and urine. He was noted to have left lower extremity
redness, pain and swelling suggestive of cellulitis. Found to be hypotensive. Received fluid resuscitation and require vasopressors.
Critical care consulted on 07/17/2025 for evaluation.
Septic shock.
Chest x-ray: Reviewed showed clear lungs-cardiomegaly
Urinalysis with moderate bacteria and 26-30 white blood cells
Fever/34% bands-normal white blood cell
Left lower extremity cellulitis
Chronic venous stasis
Cannot rule out urinary tract infection
Lactic acidosis
Rhabdomyolysis
Acute kidney injury-prerenal/?volume depletion
Condition present prior admission:
Atrial fibrillation-Home warfarin
History of AV block status post pacemaker
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
History of aortic valve replacement-bioprosthetic complicated with aortic root dissection 2014
History of thoracic aortic aneurysm
Hypertension
Essential tremor
Previous prostate cancer status post radical prostatectomy and radiation 2002-residual incontinence and overactive bladder
History of rectal prolapse with previous GI bleed
Hypothyroidism
Hyperlipidemia
Chronic thrombocytopenia
LE edema- Chronic venous stasis.

Assessment and plan:
Patient is critically ill with septic shock.
-
Septic shock suspected given clinical presentation
Trend lactic acid
Hold antihypertensives
Status post IV fluid resuscitation-fluid boluses will be given as needed, caution patient at risk for volume overload and pulmonary edema.
Has received total of 3L of crystalloids.
Levophed-wean off to maintain MAP of 65 mmHg.
Follow renal function and urinary output
Can continue for 24 hours via peripheral lines, Ag hopefully can be weaned off.
-
Source could be multiple including left lower extremity cellulitis, urinalysis also abnormal cannot rule out UTI.
Agree with broad-spectrum antibiotics Zosyn/vancomycin
Urine culture, blood culture.
Chest x-ray without infiltrate but has cardiomegaly.
-
With complicated cardiac history given significant cardiomegaly on x-ray obtain echocardiogram. Cannot rule out pericardial effusion.
It is noted on echocardiogram from October 2024 patient has some RV dysfunction likely some degree of pulmonary hypertension.
Cautious IV fluids-patient will be at risk for volume overload as he has history of heart failure with preserved ejection fraction.
-
Acute kidney injury: Likely prerenal.
Repeat labs later
CT abdomen pelvis noted: No hydronephrosis. Nonobstructive small renal stones noted.
Bladder thickening.
-
Atrial fibrillation-so far rate controlled.
Patient on digoxin
Continue Coumadin
Follow INR
-
Pt cachectic on exam
Nutrition cosult in AM
-
DVT prophylaxisINR is 3.46
-
Pet patient full code.
-
Critical care statement: A total of 38 minutes of critical care time was provided for this patient today. This includes management of unstable vital signs, evaluation of the patient at bedside, reviewing the patient�s pertinent medical records
including ventilator settings, arterial blood gases, radiographs, microbiology, laboratory evaluations and��discussion with primary team, critical care nursing, and respiratory therapy.

Data reviewed:
Echocardiogram 10/2024:
Normal LVEF 50 to 55%
Right ventricular size enlarged with mildly reduced systolic function
RV flattening consistent with RV volume overload
Severe biatrial enlargement
Status post mitral valve repair
Normal function of bioprosthetic valve
Moderate to severe TR with normal pulmonary pressure
-
CT abdomen pelvis 07/17/2025:
Right kidney cyst.
Bilateral subcentimeter hyperdense renal lesions likely benign proteinaceous cyst
Nonobstructive bilateral renal stones
Findings suggestive of fecal impaction-moderate rectal wall thickening.
Tiny bilateral pleural effusion
--- NOTE | 2025-07-17 17:59 | PHA.VAN.IN ---
Assessment
- Assessment
Renal Function: SCR Appears Elevated from baseline (1.1)
Maximum Temperature: 103.1 F oral 07/17 @ 1123
Concomitant Antimicrobials: cefepime
Plan
- Plan
Initial / Loading Dose: vanc 2000mg administered @ 1252
Maintenance Regimen: dosing by level
Monitoring: random level 07/18 06
Pharmacokinetics Vancomycin I
- -
Patient Age: 80
Patient Sex: Male
Vancomycin Day #: 1
Indication: Skin And Soft Tissue
Requesting Provider: Dr. Henry
Pertinent Antimicrobial Allergies:
no antimicrobial allergies
Height / Weight:
Height 6 ft 3 in
Actual Weight 99.8 kg
- Vital Signs / Lab Results
Temp Pulse Resp BP Pulse Ox
98.1 F 70 34 88/62 92
07/17/25 14:22 07/17/25 17:38 07/17/25 17:38 07/17/25 17:38 07/17/25 17:25
Lab Results - Hematology
07/17/25
11:28
WBC 9.0
Band Neutrophils 34 H
Lab Results - Chemistry
07/17/25
11:28
BUN 59 H
Creatinine 2.3 H
Estimated Creat Clear 32
Albumin 3.7
07/17/25 07/17/25
11:28 16:46
Lactic Acid 3.5 H 2.6 H
Lab Results - Urine
07/17/25
11:33
Urine Nitrite (Reflex) Negative
Leukocyte Esterase Rfl 2+ A
Urine WBC (Reflex) 26-30 A
Ur Squamous Epith Cells 16-20
Urine Bacteria (Reflex) Moderate A
Microbiology Results
07/17/25 11:28 Influenza Types A & B (CHRIS) - Final
Nasal Swab Negative for Influenza A & B, NAAT
Negative results must be combined with clinical observations
and patient history.
Nucleic Acid Amplification test (NAAT)performed on the
[employer] platform.
[2025-07-17] MEDS: MAXIPIME 1000 MG IV (18:14)
[2025-07-17] MEDS: STERILE WATER FOR INJECTION 10 ML IV (18:14)
--- NOTE | 2025-07-17 18:26 | PTCARENOTE ---
Patient arrived from ED approximately 1730. Oriented x4, drowsy but arousable to verbal stimuli, follows commands. Levophed infusing at 10mcg/min via LAC PIV. Denies any pain, sob, or chest pain. 2L NC, diminished with crackles at bilateral bases.
V-paced on the monitor. Condom cath placed, #25. CHG done. LLE very red, swollen, and angry looking. +3 edema. Doppler pulses bilaterally. Admission questions done. Oriented to room and use of call hager. Dinner ordered. [employer] put on TV per
pt request.
--- NOTE | 2025-07-17 19:30 | PTCARENOTE ---
Received pt. at 1900. Pt. currently in bed. Drowsy but arousable. Oriented. Denies pain/discomfort. Afebrile. Heart rhythm paced. Levophed gtt currently infusing to maintain MAP >65. Currently on nasal cannula. Lungs sound diminished. PO diet is
ordered. Poor appetite. Incontinent of bowel and bladder. Skin as documented. Discussed plan of care with patient. Vital signs stable at this time.
[2025-07-17 21:26] LABS: Blood Urea Nitrogen 64 mg/dl (9-20); Calcium 7.8 mg/dl (8.4-10.2); Carbon Dioxide 17 mmol/L (22-30); Chloride 108 mmol/L (98-107); Estimated Creatinine Clearance 33 ml/min; Glucose 96 mg/dl (70-99); Magnesium 1.9 mg/dl (1.6-2.3); Potassium 4.2 mmol/L (3.5-5.1); Sodium 133 mmol/L (135-145); eGFR 29.91
[2025-07-17] MEDS: SODIUM BICARBONATE 1150 MEQ IV (22:48)
[2025-07-17] MEDS: CALCIUM GLUCONATE 130 MG IV (22:49)
[2025-07-18] VITALS (51 sets, daily range): BP systolic 84–129; BP diastolic 45–93; PULSE 71–74; O2SAT 96; BMI 28.3
--- NOTE | 2025-07-18 | PTCARENOTE ---
Pt. assessment unchanged. Remains on Levophed gtt. Titrating as tolerated. Multiple episodes of bowel incontinence. Hygiene care performed. Pt. denies pain/discomfort. Vital signs stable at this time.
[2025-07-18] MEDS: STERILE WATER FOR INJECTION 10 ML IV ×2 (03:40→09:26)
[2025-07-18] MEDS: MAXIPIME 1000 MG IV ×2 (03:40→09:26)
[2025-07-18 04:06] LABS: ALT (SGPT) 53 U/L (0-50); AST (SGOT) 143 U/L (17-59); Albumin 3.0 g/dl (3.5-5.0); Alkaline Phosphatase 50 U/L (38-126); Calcium 8.2 mg/dl (8.4-10.2); Carbon Dioxide 19 mmol/L (22-30); Glucose 74 mg/dl (70-99); Magnesium 1.9 mg/dl (1.6-2.3); Potassium 4.2 mmol/L (3.5-5.1); Sodium 135 mmol/L (135-145); Total Protein 6.5 g/dl (6.3-8.2)
[2025-07-18 04:07] LABS: Hematocrit 39.1 % (39.0-52.0); Hemoglobin 13.0 g/dL (13.0-18.0); Mean Corp Hgb Conc. 33.2 g/dL (33.0-37.0); Mean Corpuscular Volume 93.8 fL (80.0-94.0); Nucleated Red Blood Cells % 0 % (-); Platelet Count 68 10^3/uL (130-400); Red Cell Dist. Width 15.5 % (11.5-14.5)
[2025-07-18 04:09] LABS: PT 51.6 Sec (11.4-14.6)
[2025-07-18 04:16] LABS: Blood Urea Nitrogen 66 mg/dl (9-20); Chloride 108 mmol/L (98-107); Estimated Creatinine Clearance 36 ml/min; eGFR 33.53
[2025-07-18 04:26] LABS: INR 5.86
[2025-07-18 04:38] LABS: Cortisol, Random 27.8 ug/dl
--- NOTE | 2025-07-18 05:00 | PTCARENOTE ---
Pt. assessment remains unchanged. AM labs drawn. Vital signs stable at this time.
[2025-07-18] MEDS: LEVOPHED 250 IV (07:16)
--- NOTE | 2025-07-18 08:44 | W.PN.HOSP.TC ---
Today's Communication/Plan
-
Antibiotics
Assessment / Plan
Assessment / Plan
Physical exam:
General: Acutely ill
HEENT: Normocephalic, Atraumatic and Moist Mucous Membranes
Respiratory: Clear to Auscultation; Negative Wheezes, Rales or Rhonchi
Cardiac: Regular Rhythm and S1/S2. Pacemaker no erythema
GI: Soft, Nontender and Nondistended
Musculoskeletal: Skin findings as below. No joint effusions. No Clubbing, No Cyanosis
Skin: Left lower extremity erythema edema and blisters and warmth.
Neuro: Awake, Alert and Oriented, no gross neurological deficit but generalized weakness.
Psych: Normal judgment and insight
A/P:
Septic shock due to Streptococcus G bacteremia and left lower extremity cellulitis:
Change antibiotics to IV Rocephin 2 g daily
Continue pressors as needed
ID consult-discussed with ID via [place] text today
Blood cultures positive group G Streptococcus on 07/17
Repeat blood cultures today
[employer] on board
Lactate fluctuating up and down
No DVT by Doppler on LLE
Echocardiogram normal EF but right ventricle overload and no gross vegetations
Updated daughter, Ariadne
TANA:
Likely ATN related to sepsis
Creatinine 2 (creatinine 2.2 yesterday and creatinine 1.1 back in November of this year)
IV fluids as needed
Avoid nephrotoxic
Monitor renal function
Metabolic acidosis:
Monitor acidosis closely
Rhabdomyolysis:
Mild
Trend CPK in a.m.
Hypothyroidism:
Continue levothyroxine 50 mcg p.o. daily
Permanent atrial fibrillation:
Holding rate control as, atenolol and digoxin
Holding anticoagulation, warfarin
Thrombocytopenia:
Chronic and worsening due to sepsis
Transaminitis:
Likely due to sepsis
Continue to trend
Coagulopathy with supratherapeutic INR:
Increase INR due to sepsis and meds
Hold warfarin-INR 5.86 today
Monitor trend
Other medical problems:
Hypertension
Hyperlipidemia
Chronic venous stasis changes
Overreactive bladder
Rectal prolapse
Essential tremor
Constipation
Prostate cancer status post radical prostatectomy and radiation
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
History of thoracic aortic aneurysm
Complete heart block status post pacemaker
DVT prophylaxis:
On warfarin
Total time spent on today's encounter was 56 minutes which included time spent in counseling the patient/family regarding diagnosis and treatment plan as listed above, goals of care, and symptom management. Case was discussed with nursing staff,
specialists, and care coordinators/case management. All labs and imaging personally reviewed by me. Remainder the time spent in detailed review of previous records, lab data, imaging, and other medical provider documentation.
Anticipated Discharge: > 48 hours
Subjective/Interval History
-
Date of Service: July 18, 2025
Patient denies chest pain or shortness of breath. I showed him pictures of his leg and he definitely says it is worse. No nausea or vomiting. Afebrile today
Objective Data
-
Labs:
Laboratory Results
07/17/25 07/18/25
20:59 03:32
WBC 8.4
Hgb 13.0
Hct 39.1
Plt Count 68 L
PT 51.6 H
INR 5.86 H* D
Sodium 133 L 135
Potassium 4.2 4.2
Chloride 108 H 108 H
Carbon Dioxide 17 L 19 L
BUN 64 H 66 H
Creatinine 2.2 H 2.0 H
Glucose 96 74
Calcium 7.8 L 8.2 L
Total Bilirubin 4.0 H
AST 143 H
ALT 53 H
Alkaline Phosphatase 50
Vital Signs:
Vital Signs
Temp Pulse Resp BP Pulse Ox
98.5 F 70 23 95/65 98
07/18/25 08:12 07/18/25 05:30 07/18/25 05:30 07/18/25 05:30 07/18/25 05:30
I&O
07/17/25 07/18/25 07/19/25
06:59 06:59 06:59
Intake Total 1675.0 / 1675.0
Output Total 200 / 200
Balance 1475.0 / 1475.0
--- NOTE | 2025-07-18 09:32 | PHA.VAN.FU ---
Vancomycin Assessment / Plan
- Assessment
Renal Function: Stable
WBC's are: WNL
In the past 24 hrs, patient has been: Normothermic (One exception - T103.1F 07/17/25 @1123)
Concomitant Antimicrobials: Cefepime
- Assessment - Therapeutic Drug Monitoring
Random Level: 10.8 - drawn 12 hours post-2g loading dose
- Dosing Plan
Continue: Vancomycin PRN by level
Dosing by Level: Re-dose today (1500MG x1)
- Monitoring Plan
Random Level: 07/19/25 with AM labs
- Follow Up
Pharmacy will continue to follow.
Vancomycin Follow UP
- -
Patient Age: 80
Patient Sex: Male
Vancomycin Day #: 2
Indication: Skin And Soft Tissue
Requesting Provider: Dr. Henry
Pertinent Antimicrobial Allergies:
no antimicrobial allergies
Height / Weight:
Height 6 ft 3 in
Actual Weight 102.7 kg
- Vital Signs / Lab Results
Temp Pulse Resp BP Pulse Ox
98.5 F 72 25 95/60 98
07/18/25 08:12 07/18/25 09:00 07/18/25 09:00 07/18/25 09:00 07/18/25 09:00
Lab Results - Hematology
07/17/25 07/18/25
11:28 03:32
WBC 9.0 8.4
Band Neutrophils 34 H
Lab Results - Chemistry
07/17/25 07/17/25 07/18/25
11:28 20:59 03:32
BUN 59 H 64 H 66 H
Creatinine 2.3 H 2.2 H 2.0 H
Estimated Creat Clear 32 33 36
Albumin 3.7 3.0 L
07/17/25 07/17/25 07/17/25
11:28 16:46 20:59
Lactic Acid 3.5 H 2.6 H 2.6 H
07/18/25 07/18/25
04:04 07:52
Lactic Acid 2.2 H 2.6 H
Lab Results - Urine
07/17/25
11:33
Urine Nitrite (Reflex) Negative
Leukocyte Esterase Rfl 2+ A
Ur Squamous Epith Cells 16-20
Microbiology Results
07/17/25 16:46 C. difficile GDH Antigen & Toxins - Final
Feces/Stool Negative for toxigenic C.difficile
07/17/25 11:28 Blood Culture - Preliminary
Blood/Venous Streptococcus species
Gram Stain - Preliminary
07/17/25 11:33 Blood Culture - Preliminary
Blood/Venous Positive culture in progress
Gram Stain - Preliminary
07/17/25 11:28 Influenza Types A & B (CHRIS) - Final
Nasal Swab Negative for Influenza A & B, NAAT
Negative results must be combined with clinical observations
and patient history.
Nucleic Acid Amplification test (NAAT)performed on the
[employer] platform.
Therapeutic Drug Monitoring
Random Vancomycin 10.8 ug/ml 07/18/25 03:32
[2025-07-18] MEDS: VANCOCIN 530 MG IV (10:11)
--- NOTE | 2025-07-18 11:31 | CON.ID ---
Consultation
-
Date/Time Consultation Requested: July 18, 2025 1057
Date/Time Consultation Performed: July 18, 2025 1130
Requesting Provider: Dr. Alex Kent
Performing Provider: Dr. Claribel Tolentino
Reason for Consultation: Bacteremia
Chief Complaint / Past History
Chief Complaint
Fever and weakness
History of Present Illness
80-year-old male with history of group G Streptococcus endocarditis, by report, requiring mitral valve repair and aortic valve homograft December 2000, redo bioprosthetic aortic valve repair 2014, history of pacemaker placement, permanent atrial
fibrillation on Coumadin, venous stasis who presented to the ER on July 17 due to of fevers, weakness, left leg discomfort. He states that he noted the left leg was swollen and red on July 16. He developed blisters. He had difficulty
bearing weight. Denies trauma. He then developed fevers, chills, malaise, and called EMS. In the ER temperature 103.1, lactic acid 3.5, hypotensive systolic blood pressure in the 70s requiring Levophed. UA 2+ leukocyte esterase, 26-30 white
blood cells. Urine culture pending. COVID and flu negative. C. difficile negative. Chest x-ray shows cardiomegaly without pneumonia. CT of the abdomen pelvis shows stable bladder wall thickening, fecal impaction, new right renal complex cystic
and bilateral subcentimeter hyperdense renal lesions likely benign proteinaceous cyst. He was started on vancomycin and cefepime. Today blood cultures x 2 growing group G Streptococcus. Patient denies chest pain, cough, nausea, vomiting,
abdominal pain, dysuria, or flank pain. Urine incontinence stable.
Past History
Additional Past Medical History:
HTN
Atrial fibrillation on Coumadin
Complete heart block s/p PPM
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
AV homograft regurgitation s/p bioprosthetic AVR 2014
Thoracic aortic aneurysm
CAD
Hypothyroidism
Chronic thrombocytopenia
Venous stasis
Overactive bladder
Rectal prolapse
Essential tremor
Chronic constipation
Prostate ca (2002) s/p radical prostatectomy, XRT
Right total knee replacement
Allergy History:
bromide salts ([place]) Allergy (Verified 09/28/24 11:54)
Rash
Medications Reviewed: Yes
Current Antibiotics:
Cefepime
Vancomycin
Social History
Tobacco: Non-Smoker
Alcohol: None
Drug: None
Family History
Family History: Not Pertinent
Review of Systems
Review of Systems
General: Fever, Chills and Change in Appetite
HEENT: Negative Sinus Problems, Headache or Pharyngitis
Cardiovascular: Negative Chest Pain or Dyspnea
Respiratory: Negative Dyspnea, Cough or Sputum Production
Gasteroenterology: Negative Nausea, Vomiting or Diarrhea
Genital / Urological: Negative Dysuria or Flank Pain
Endocrine: Weakness and Fatigue
Neurological: Negative Dizziness
All systems: All other systems were reviewed and were negative
Vital Signs
Temp Pulse Resp BP Pulse Ox
98.5 F 72 22 91/69 98
07/18/25 08:12 07/18/25 11:00 07/18/25 11:00 07/18/25 11:00 07/18/25 11:00
Selected Entries
07/17/25
11:23
Temp 103.1 F H
Physical Exam
Physical Exam
Constitutional: Acutely Ill
Eyes: No Conjunctival Hemorrhage and Other (Sclera icteric)
Oral: Negative No Thrush
Cardiovascular: Irregular Rate, S1/S2 and Other (left chest wall PPM site no induration/erythema)
Pulmonary: Clear
Gastrointestinal: Soft, Non Tender, Non Distended and Normal Bowel Sounds
Genito-Urinary: Ag and Clear Urine; Negative CVA Tenderness
Extremities: Edema (LLE 3+), Erythema (LLE bright erythema from foot to knee with blisters, + warmth), Pulses (+ pedal pulses) and Venous Insufficiency (BLE)
Musculoskeletal: Negative Joint Swelling (right knee and hip) or Joint Effusion (right knee and hip)
Skin: Jaundice
Neurological: AO x 3
Lab / Diagnostic Study Results
07/18/25 03:32
07/18/25 03:32
Abs Immat Gran (auto) 0.1 10^3/uL (0-0.05) H 07/18/25 03:32
Absolute Neuts (auto) 8.0 10^3/uL (1.4-6.5) H 07/18/25 03:32
Absolute Lymphs (auto) 0.2 10^3/uL (1.2-3.4) L 07/18/25 03:32
Absolute Monos (auto) 0.1 10^3/uL (0.1-0.6) 07/18/25 03:32
Absolute Basos (auto) 0.1 10^3/uL (0-0.2) 07/18/25 03:32
Total Counted 100 07/17/25 11:28
Immature Gran % 0.7 % (0-0.5) H 07/18/25 03:32
Neutrophils % 95.4 % (42.2-75.2) H 07/18/25 03:32
Lymphocytes % 1.9 % (20.5-51.1) L 07/18/25 03:32
Monocytes % 1.1 % (1.7-9.3) L 07/18/25 03:32
Eosinophils % 0.1 % (0-6) 07/18/25 03:32
Basophils % 0.8 % (0-2) 07/18/25 03:32
Abs Neuts (Manual) 7.6 10^3/uL (1.4-6.5) H 07/17/25 11:28
Segmented Neutrophils 51 % (42-75) 07/17/25 11:28
Band Neutrophils 34 % (0-3) H 07/17/25 11:28
PT 51.6 Sec (11.4-14.6) H 07/18/25 03:32
INR 5.86 H* D 07/18/25 03:32
Lactic Acid 2.6 mmol/L (0.7-2.0) H 07/18/25 07:52
Ur Squamous Epith Cells 16-20 /LPF (Few) 07/17/25 11:33
Microbiology Results
Micro:
07/17/25 11:33 Blood Culture - Preliminary
Blood/Venous Group G Streptococcus
Gram Stain - Preliminary
07/17/25 11:28 Blood Culture - Preliminary
Blood/Venous Group G Streptococcus
Gram Stain - Final
07/17/25 16:46 C. difficile GDH Antigen & Toxins - Final
Feces/Stool Negative for toxigenic C.difficile
07/17/25 16:46 Salmonella/Shigella Culture - Pending
Feces/Stool Campylobacter Culture - Pending
Shiga Toxin Test - Pending
07/17/25 11:28 Influenza Types A & B (CHRIS) - Final
Nasal Swab Negative for Influenza A & B, NAAT
Negative results must be combined with clinical observations
and patient history.
Nucleic Acid Amplification test (NAAT)performed on the
[employer] platform.
07/17/25 11:33 Urine Culture - Pending
Urine
07/17/25 CXR: Cardiomegaly. Pulmonary vascularity at least top normal. No focal parenchymal opacification to suggest pneumonia.
07/17/25 CT a/p: Probable complex cyst of the right kidney. Further evaluation with a CT of the kidneys pre- and post-IV contrast or MRI examination recommended. Malignancy not excluded. Increased complexity.
Bilateral subcentimeter hyperdense renal lesions likely benign proteinaceous cysts. New
Tiny nonobstructing bilateral renal stones. New.
Findings suggestive of fecal impaction. Moderate rectal wall thickening. Stercoral colitis cannot excluded. Progressed.
Mild diffuse bladder wall thickening. This can be seen with cystitis or bladder outlet obstruction. Stable
Assessment / Plan
# Severe LLE cellulitis
# Group G streptococcus bacteremia - cellulitis source
# Septic shock due to cellulitis/bacteremia
# TANA due to sepsis
# Acute on chronic thrombocytopenia due to severe sepsis
# Elevated LFT's due to hypotension
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
# PPM
- TTE: no gross vegetations; AVR and MV repair with normal gradients
- Repeat blood cx's x 2.
- De-escalate Vanco/cefepime to ceftriaxone.
-Avoid nephrotoxic meds.
- ICU supportive care
-Trend temps, vitals, CBC,LFT's, Renal function
#Conditions present on admission:HTN
Atrial fibrillation on Coumadin
Complete heart block s/p PPM
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
AV homograft regurgitation s/p bioprosthetic AVR 2014
Thoracic aortic aneurysm
CAD
Hypothyroidism
Chronic thrombocytopenia
Venous stasis
Overactive bladder
Rectal prolapse
Essential tremor
Chronic constipation
Prostate ca (2002) s/p radical prostatectomy, XRT
Right total knee replacement
Care Review
Plan reviewed with: Nurse
--- NOTE | 2025-07-18 11:48 | W.PN.INTV ---
Today's Communication / Plan
Recommendations
.
Assessment
-
80-year-old man with complicated cardiac history including atrial fibrillation on Coumadin, complete heart block with pacemaker, mitral valve repair, bioprosthetic aortic valve replacement, thoracic aortic aneurysm, hypertension noted. Presented
with fever, generalized weakness for the past few days. Patient was not able to get out of bed and he was soiled on stool and urine. He was noted to have left lower extremity redness, pain and swelling suggestive of cellulitis. Found to be
hypotensive. Received fluid resuscitation and require vasopressors.
Critical care consulted on 07/17/2025 for evaluation.
ASSESSMENT
Septic shock 2/2 UTI vs LLE cellulitis, less likely stercoral colitis requiring pressors
Left lower extremity cellulitis
Chronic venous stasis
Lactic acidosis
Rhabdomyolysis
Acute kidney Injury
Hyperbilirubinemia/Transaminitis
Condition present prior admission:
Atrial fibrillation-Home warfarin
History of AV block status post pacemaker
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
History of thoracic aortic aneurysm
Hypertension
Essential tremor
Previous prostate cancer status post radical prostatectomy and radiation 2002-residual incontinence and overactive bladder
History of rectal prolapse with previous GI bleed
Hypothyroidism
Hyperlipidemia
Chronic thrombocytopenia
LE edema- Chronic venous stasis.

Cardiovascular
Patient currently on 4 of Levo with MAP 68
Continue pressor support and wean as tolerated to goal MAP > 65
Hold home antihypertensives
Judicious use of fluids given right ventricular failure as seen on ECHO and hx HFpEF
LR bolus as needed but avoid infusions
Continue Coumadin, follow INR
GI
Tolerating diet
Trend LFTs - likely secondary to hepatic hypoperfusion
Cachectic on exam - nutrition consult
Cr downtrending, continue to monitor
Likely a pre-renal TANA in the setting of septic shock
Continue Ag for now and monitor outputs
ID
Continue to follow cultures/sensitivities/antigen assays
Blood growing Group G Strep; continue Cefepime
Await sensitivities and discontinue Vancomycin if cephalosporin sensitive
Continue to monitor temps and WBCs
Heme/Onc
On Coumadin, INR 5.86; likely in setting of abx; adjust to maintain target INR
Endo
Restart home Levothyroxine

Data reviewed:
Echocardiogram 10/2024:
Normal LVEF 50 to 55%
Right ventricular size enlarged with mildly reduced systolic function
RV flattening consistent with RV volume overload
Severe biatrial enlargement
Status post mitral valve repair
Normal function of bioprosthetic valve
Moderate to severe TR with normal pulmonary pressure
-
CT abdomen pelvis 07/17/2025:
Right kidney cyst.
Bilateral subcentimeter hyperdense renal lesions likely benign proteinaceous cyst
Nonobstructive bilateral renal stones
Findings suggestive of fecal impaction-moderate rectal wall thickening.
Tiny bilateral pleural effusion
Subjective Dataa
Subjective Data
Date of Service:
Date of Service: July 18, 2025
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
Subjective:
Patient is more alert this morning and appropriately answering questions. Endorses continued LLE pain to touch, and notes that the symptoms to his LLE started approximately 3 days ago. Denies any urinary symptoms today or prior to arrival, including
increased urinary frequency, dysuria, or foul smelling cloudy urine. Otherwise denies abdominal pain, n/v/d.
Review of Systems
General: Pain (LLE)
Genitourinary: Ag
Objective Data
Data Reviewed
Vital Signs / I&O / Oxygen:
Vital Signs
Temp Pulse Resp BP Pulse Ox
98.5 F 72 22 91/69 98
07/18/25 08:12 07/18/25 11:00 07/18/25 11:00 07/18/25 11:00 07/18/25 11:00
Intake and Output
07/17/25 07/18/25 07/19/25
06:59 06:59 06:59
Intake Total 1675.0 / 1790.0 360 / 360
Output Total 200 / 200 425 / 425
Balance 1475.0 / 1590.0 -65 / -65
SaO2 98
Nasal Cannula flow liters per 2
minute
Physical Exam
General: Other (Sleepy but arousable, otherwise alert and answering questions appropriately and tolerating diet)
HEENT: Normocephalic and Anicteric
Cardiovascular: S1-S2 and Regular Rhythm
Respiratory: Clear (anteriorly) and Non-Labored Respirations
GI: Soft, Non Distended, Non Tender, Normal Bowel Sounds and Other (Ag catheter draining clear dark yellow urine)
Neurology: Awake and Alert
Skin: Warm
Labs/Micro/Reports
Lab Data
07/18/25 03:32
07/18/25 03:32
Laboratory Results
07/17/25 07/18/25
11:28 03:32
PT 34.6 H 51.6 H
INR 3.46 5.86 H* D
APTT 52.2 H
Microbiology
07/17/25 11:33 Blood/Venous Blood Culture - Preliminary
Group G Streptococcus
07/17/25 11:33 Blood/Venous Gram Stain - Preliminary
07/17/25 11:28 Blood/Venous Blood Culture - Preliminary
Group G Streptococcus
07/17/25 11:28 Blood/Venous Gram Stain - Final
07/17/25 16:46 Feces/Stool C. difficile GDH Antigen & Toxins - Final
Negative for toxigenic C.difficile
07/17/25 11:28 Nasal Swab Influenza Types A & B ([facility]RIS) - Final
Negative for Influenza A & B, NAAT
Negative results must be combined with clinical observations
and patient history.
Nucleic Acid Amplification test (NAAT)performed on the
[employer] platform.
--- NOTE | 2025-07-18 12:11 | PTCARENOTE ---
Updated Dr Brody, no need to continue to trend lactic. Maintain on levo and continue abx.
--- NOTE | 2025-07-18 12:30 | WOUNDNOTE ---
L LATERAL LOWER LEG
--- NOTE | 2025-07-18 12:30 | WOUNDNOTE ---
L LATERAL LOWER LEG
--- NOTE | 2025-07-18 12:31 | WOUNDNOTE ---
R LATERAL LOWER LEG
--- NOTE | 2025-07-18 12:31 | WOUNDNOTE ---
SACRUM AND BACK
--- NOTE | 2025-07-18 12:32 | WOUNDNOTE ---
L POSTERIOR LOWER LEG
--- NOTE | 2025-07-18 12:32 | WOUNDNOTE ---
GLUTEAL CLEFT AND BUTTOCKS
--- NOTE | 2025-07-18 12:40 | WOUNDNOTE ---
WON RN note: Patient admitted with Sepsis, TANA, rhabdomyolysis.
See H&P for complete history. Lives with at home.
PMH: Past Medical History: Reports Other (persistent atrial fibrillation on Coumadin, complete heart block status post pacemaker, mitral valve repair with AV hemograft in 2000 secondary to bacterial endocarditis, aortic valve replacement with
bioprosthetic status post aortic root dissection in 2015, thoracic aortic aneurysm, hypertension, c)
Past Surgical History: Reports None
Wound Location and type/assessment: Patient admitted with: cellulitis of L leg, 3+ edema and weeping serous filled blister to L lateral lower leg. + pedal pulse with Doppler. Distal to blister is open red venous ulcer, darker discolored skin
surrounding. Patient assessed along with Dr. Tolentino and nurse Stephanie. R lower leg with few dried up abrasions, heels blanchable red. Patient turned with assist, sacrum intact, few shallow dry open areas on L flank, suspect abrasions. Condom catheter in
use, patient incontinent of loose stool during assessment. MASD in gluteal cleft and buttocks. Groin skin folds intact.
Appetite: Fair.
Pressure redistribution devices in place: Air mattress, pillows under legs. L leg elevated with several pillows.
Plan: Applied Vaseline to lower legs, will order mineral oil to start tomorrow. L lateral leg applied adaptic, abd and kerlix. Padded anterior foot/ankle with ABD pad then Akbar applied forefoot to below knee. Dr. Tolentino approved of wound care and
compression. Will update orders, care plan and follow as needed.
Note to case management of equipment requested for discharge: TBD.
Recommend follow up at wound care center upon discharge.
--- NOTE | 2025-07-18 12:47 | PTCARENOTE ---
Breann called and was given update.
--- NOTE | 2025-07-18 13:25 | PTCARENOTE ---
Blood cx attempted x2 without success. Another in to attempt after pt eats lunch.
--- NOTE | 2025-07-18 14:32 | CM ---
Addendum entered by Sandra Ochoa 07/18/25 14:38:
No in-home services.
Original Note:
Initial assessment completed with patient who lives with his in a 2 story plus basement home with B/B on , 1/2 bath on , no steps to enter. 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 He has a stair lift, RW,
SPC and w/ch. Does have HC-POA. Was in the [employer], no VA benefits. No psychiatric hospitalizations. PCP is Dr. Urrutia with [facility]. [facility]acy is [facility] in [place]. Discharge POC: TBD.
[2025-07-18] MEDS: STERILE WATER FOR INJECTION 20 ML IV (14:56)
[2025-07-18] MEDS: ROCEPHIN 2000 MG IV (14:56)
--- NOTE | 2025-07-18 15:26 | PTCARENOTE ---
PT/OT worked with pt to get up and out of bed. Pt tolerated well. Did c/o pain when sitting up in thighs, but reports it improved with stretching exercises. BP improved with activity. Legs elevated while in chair given edema. Pt set up to brush
his teeth.
--- NOTE | 2025-07-18 15:40 | PTCARENOTE ---
Once in chair, pt urinated large amount but cc had fallen off. Covidien placed around to keep pt clean
--- NOTE | 2025-07-18 16:45 | PTCARENOTE ---
Pt requesting back to bed because his buttocks hurt. Pt was scooting himself down in chair. Instructed pt to move himself back in chair then assisted back to bed. Inc stool while up in chair. Pearl care completed. New cc applied once back in bed.
--- NOTE | 2025-07-18 21:00 | PTCARENOTE ---
Assumed care at 1900. Patient remains on levo to maintain MAP above 65. 100 percent vpaced on the monitor. See nursing shift assessment on work list for assessment details. Satting 94 percent on room air.
[2025-07-19] VITALS (46 sets, daily range): BP systolic 77–108; BP diastolic 49–76; BMI 28.6
--- NOTE | 2025-07-19 00:27 | PTCARENOTE ---
No changes from previous assessment. Levophed increased to 5 to maintain MAPs aboave 65. CHG bath provided and condom catheter replaced.
[2025-07-19] MEDS: LEVOPHED 250 IV (01:55)
[2025-07-19 03:35] LABS: INR 3.78; PT 37.0 Sec (11.4-14.6)
--- NOTE | 2025-07-19 03:48 | PTCARENOTE ---
Patient assessment remains unchanged. Weaned levo back down to 4mcg/min to maintain MAP above 65.
[2025-07-19 03:59] LABS: Hematocrit 33.5 % (39.0-52.0); Hemoglobin 11.6 g/dL (13.0-18.0); Mean Corp Hgb Conc. 34.6 g/dL (33.0-37.0); Mean Corpuscular Volume 91.0 fL (80.0-94.0); Nucleated Red Blood Cells % 0 % (-); Platelet Count 64 10^3/uL (130-400); Red Cell Dist. Width 15.0 % (11.5-14.5)
[2025-07-19 04:24] LABS: ALT (SGPT) 62 U/L (0-50); AST (SGOT) 135 U/L (17-59); Albumin 2.5 g/dl (3.5-5.0); Alkaline Phosphatase 78 U/L (38-126); Blood Urea Nitrogen 59 mg/dl (9-20); Calcium 8.4 mg/dl (8.4-10.2); Carbon Dioxide 22 mmol/L (22-30); Chloride 107 mmol/L (98-107); Estimated Creatinine Clearance 61 ml/min; Glucose 89 mg/dl (70-99); Potassium 3.2 mmol/L (3.5-5.1); Sodium 134 mmol/L (135-145); Total Protein 5.7 g/dl (6.3-8.2); eGFR > 60.00
[2025-07-19 04:52] LABS: Magnesium 1.9 mg/dl (1.6-2.3)
[2025-07-19] MEDS: KCL 270 MEQ IV (04:59)
[2025-07-19] MEDS: SYNTHROID 50 MCG PO (05:00)
--- NOTE | 2025-07-19 08:12 | W.PN.INTV ---
Today's Communication / Plan
Recommendations
.
Assessment
-
80-year-old man with complicated cardiac history including atrial fibrillation on Coumadin, complete heart block with pacemaker, mitral valve repair, bioprosthetic aortic valve replacement, thoracic aortic aneurysm, hypertension noted. Presented
with fever, generalized weakness for the past few days. Patient was not able to get out of bed and he was soiled on stool and urine. He was noted to have left lower extremity redness, pain and swelling suggestive of cellulitis. Found to be
hypotensive. Received fluid resuscitation and require vasopressors.
Critical care consulted on 07/17/2025 for evaluation.
ASSESSMENT
Septic shock requiring pressors 2/2 LLE cellulitis likely, less likely stercoral colitis or UTI
Group G Streptococcal Bacteremia
Left lower extremity cellulitis
Chronic venous stasis
Lactic acidosis
Rhabdomyolysis
Acute kidney Injury
Hyperbilirubinemia/Transaminitis
Rust Colored Diarrhea
Hypokalemia
Condition present prior admission:
Atrial fibrillation-Home warfarin
History of AV block status post pacemaker
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
History of thoracic aortic aneurysm
Hypertension
Essential tremor
Previous prostate cancer status post radical prostatectomy and radiation 2002-residual incontinence and overactive bladder
History of rectal prolapse with previous GI bleed
Hypothyroidism
Hyperlipidemia
Chronic thrombocytopenia
LE edema- Chronic venous stasis.

Cardiovascular
Patient currently on 2 of Levo with MAP 68
Continue pressor support and wean as tolerated to goal MAP > 65
Will add midodrine 10mg TID for BP support and continue to wean Levo as tolerated as patient likely has age related vascular stiffening
Continue to hold home antihypertensives
Judicious use of fluids given right ventricular failure as seen on ECHO and hx HFpEF
LR bolus as needed but avoid infusions
Balance of 770mL over 24 hours, 1kg weight increase
Will also get pro-BNP today, and give 20mg Lasix IV
Continue to follow daily INR
Potassium Cristofer 40mg + oral K 40mg
Continue PT/OT
GI
Tolerating diet
Trend LFTs - likely secondary to hepatic hypoperfusion
Cachectic on exam - nutrition consult
Rust colored diarrhea - repeat H/H in PM
Start Metamucil
Cr downtrending, continue to monitor
Likely a pre-renal TANA in the setting of septic shock
Continue Ag for now and monitor outputs
ID
Abx narrowed to Ceftriaxone by ID; appreciate reccs
Continue to monitor temps and WBCs
Heme/Onc
On Coumadin, INR 5.86; likely in setting of abx; adjust to maintain target INR
Endo
Continue home Levothyroxine

Data reviewed:
Echocardiogram 10/2024:
Normal LVEF 50 to 55%
Right ventricular size enlarged with mildly reduced systolic function
RV flattening consistent with RV volume overload
Severe biatrial enlargement
Status post mitral valve repair
Normal function of bioprosthetic valve
Moderate to severe TR with normal pulmonary pressure
No evidence of valvular vegetations
-
CT abdomen pelvis 07/17/2025:
Right kidney cyst.
Bilateral subcentimeter hyperdense renal lesions likely benign proteinaceous cyst
Nonobstructive bilateral renal stones
Findings suggestive of fecal impaction-moderate rectal wall thickening.
Tiny bilateral pleural effusion
Subjective Dataa
Subjective Data
Date of Service:
Date of Service: July 19, 2025
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
Subjective:
Patient resting comfortably in bed. No acute complaints or changes overnight. Has remained afebrile. Has required as much as 5mcg/hr of Levophed overnight, with current requirement of 2mcg/hr. Tolerating diet.
Per nursing, patient has been having rust colored diarrhea, multiple times yesterday, every time he was turned.
Review of Systems
Genitourinary: Ag (draining clear dark yellow urine without sedimentation)
Objective Data
Data Reviewed
Vital Signs / I&O / Oxygen:
Vital Signs
Temp Pulse Resp BP Pulse Ox
97.7 F 71 26 90/58 95
07/19/25 03:17 07/19/25 08:00 07/19/25 08:00 07/19/25 08:00 07/19/25 08:00
Intake and Output
07/18/25 07/19/25 07/20/25
06:59 06:59 06:59
Intake Total 1675.0 / 1790.0 3177.1 / 3177.1
Output Total 200 / 200 2290 / 2290
Balance 1475.0 / 1590.0 887.1 / 887.1
SaO2 95
Nasal Cannula flow liters per 2
minute
Physical Exam
General: Other (Sleepy but arousable, otherwise alert and answering questions appropriately and tolerating diet)
HEENT: Normocephalic and Anicteric
Cardiovascular: S1-S2 and Regular Rhythm
Respiratory: Clear (anteriorly) and Non-Labored Respirations
GI: Soft, Non Distended, Non Tender, Normal Bowel Sounds and Other (Ag catheter draining clear dark yellow urine)
Neurology: Awake and Alert
Skin: Warm
Labs/Micro/Reports
Lab Data
07/19/25 03:10
07/19/25 03:10
Laboratory Results
07/19/25
03:10
PT 37.0 H
INR 3.78 D
Microbiology
07/17/25 11:33 Urine Urine Culture - Final
07/17/25 11:33 Blood/Venous Blood Culture - Preliminary
Group G Streptococcus
07/17/25 11:33 Blood/Venous Gram Stain - Preliminary
07/17/25 11:28 Blood/Venous Blood Culture - Preliminary
Group G Streptococcus
07/17/25 11:28 Blood/Venous Gram Stain - Final
07/17/25 16:46 Feces/Stool C. difficile GDH Antigen & Toxins - Final
Negative for toxigenic C.difficile
07/17/25 11:28 Nasal Swab Influenza Types A & B (CHRIS) - Final
Negative for Influenza A & B, NAAT
Negative results must be combined with clinical observations
and patient history.
Nucleic Acid Amplification test (NAAT)performed on the
[employer] platform.
[2025-07-19] MEDS: HYDROPHOR 1 APPLIC TOPICAL (08:30)
--- NOTE | 2025-07-19 11:39 | W.PN.HOSP.TC ---
Today's Communication/Plan
-
IV antibiotics. Pressors. Midodrine. Diuresis.
Assessment / Plan
Assessment / Plan
Physical exam:
General: Acutely ill
HEENT: Normocephalic, Atraumatic and Moist Mucous Membranes
Respiratory: Clear to Auscultation; Negative Wheezes, Rales or Rhonchi
Cardiac: Regular Rhythm and S1/S2. Pacemaker no erythema
GI: Soft, Nontender and Nondistended
Musculoskeletal: Skin findings as below. No joint effusions. No Clubbing, No Cyanosis
Skin: Left lower extremity erythema edema and blisters and warmth.
Neuro: Awake, Alert and Oriented, no gross neurological deficit but generalized weakness.
Psych: Normal judgment and insight
A/P:
Septic shock due to Streptococcus G bacteremia and left lower extremity cellulitis:
Continue IV Rocephin 2 g daily
Continue pressors weaning down as much as possible and start midodrine
ID consult appreciated
Blood cultures positive group G Streptococcus on 07/17
Repeat blood cultures 07/18
Glass Grinder on board
Lactate fluctuating up and down
No DVT by Doppler on LLE
Echocardiogram normal EF but right ventricle overload and no gross vegetations
Updated daughter yesterday, Ariadne
Volume overload:
IV Lasix today
Potassium replacement
Hypokalemia:
Replete and trend
TANA:
Improvement noted
Likely ATN related to sepsis
Creatinine 1.2 today which is close to his baseline
IV fluids as needed
Avoid nephrotoxic
Monitor renal function
Metabolic acidosis:
Monitor acidosis closely
Rhabdomyolysis:
Mild
CPK trending down
Hypothyroidism:
Continue levothyroxine 50 mcg p.o. daily
Permanent atrial fibrillation:
Holding rate control as, atenolol and digoxin
Holding anticoagulation, warfarin
Thrombocytopenia:
Chronic and worsening due to sepsis
Transaminitis:
Likely due to sepsis
Continue to trend
Coagulopathy with supratherapeutic INR:
Increase INR due to sepsis and meds
Hold warfarin-INR 3.78 today
Monitor trend
Other medical problems:
Hypertension
Hyperlipidemia
Chronic venous stasis changes
Overreactive bladder
Rectal prolapse
Essential tremor
Constipation
Prostate cancer status post radical prostatectomy and radiation
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
History of thoracic aortic aneurysm
Complete heart block status post pacemaker
DVT prophylaxis:
On warfarin
Total time spent on today's encounter was 54 minutes which included time spent in counseling the patient/family regarding diagnosis and treatment plan as listed above, goals of care, and symptom management. Case was discussed with nursing staff,
specialists, and care coordinators/case management. All labs and imaging personally reviewed by me. Remainder the time spent in detailed review of previous records, lab data, imaging, and other medical provider documentation.
Anticipated Discharge: > 48 hours
Subjective/Interval History
-
Date of Service: July 19, 2025
Patient denies any new complaints. Does have some diarrhea. Less discomfort overall on his legs.
Objective Data
-
Labs:
Laboratory Results
07/19/25 07/19/25
03:10 14:00
WBC 7.1 Pending
Hgb 11.6 L Pending
Hct 33.5 L Pending
Plt Count 64 L Pending
PT 37.0 H
INR 3.78 D
Sodium 134 L
Potassium 3.2 L
Chloride 107
Carbon Dioxide 22
BUN 59 H
Creatinine 1.2
Glucose 89
Calcium 8.4
Total Bilirubin 3.2 H
AST 135 H
ALT 62 H
Alkaline Phosphatase 78
Vital Signs:
Vital Signs
Temp Pulse Resp BP Pulse Ox
98.3 F 71 26 90/58 95
07/19/25 07:55 07/19/25 08:00 07/19/25 08:00 07/19/25 08:00 07/19/25 08:00
I&O
07/18/25 07/19/25 07/20/25
06:59 06:59 06:59
Intake Total 1675.0 / 1790.0 3177.1 / 3323.4 296.3 / 296.3
Output Total 200 / 200 2290 / 2290
Balance 1475.0 / 1590.0 887.1 / 1033.4 296.3 / 296.3
[2025-07-19] MEDS: KCL 40 MEQ PO (12:34)
[2025-07-19] MEDS: METAMUCIL, KONSYL 1 PACKET PO (12:34)
[2025-07-19] MEDS: LASIX 20 MG IV (12:34)
--- NOTE | 2025-07-19 13:09 | PTCARENOTE ---
Pt having small amounts of rectal bleeding today. Pt reports this is not a new finding with hx rectal prolapse. In the past, pt has taken steroid suppositories as well as fiber laxatives to firm stool. Pt had more volume stool yesterday, but
color more red today with improving INR off coumadin. Discussed in rounds. Repeat labs ordered. New meds given as ordered. Pt without questions
[2025-07-19] MEDS: STERILE WATER FOR INJECTION 20 ML IV (13:39)
[2025-07-19] MEDS: ROCEPHIN 2000 MG IV (13:39)
--- NOTE | 2025-07-19 13:53 | W.PN.ID1 ---
Addendum entered and electronically signed by Claribel Tolentino MD 07/19/25 16:55:
Pt febrile to 102. Repeat blood cx's neg to date.
Add clindamycin 900mg IV q8h short course as toxin inhibitor.
Original Note:
Date of Service
Date of Service: July 19, 2025
Today's Communication
Continue ceftriaxone.
Assessment / Plan
# Severe LLE cellulitis
# Group G streptococcus bacteremia - cellulitis source
# Septic shock due to cellulitis/bacteremia, weaning pressor
# TANA improving
# Acute on chronic thrombocytopenia due to severe sepsis
# Elevated LFT's due to hypotension
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
# PPM
- TTE: no gross vegetations; AVR and MV repair with normal gradients
- Repeat blood cx's x 2 pending
- Continue ceftriaxone (d3).
-Trend temps, vitals, CBC,LFT's
#Conditions present on admission:HTN
Atrial fibrillation on Coumadin
Complete heart block s/p PPM
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
AV homograft regurgitation s/p bioprosthetic AVR 2014
Thoracic aortic aneurysm
CAD
Hypothyroidism
Chronic thrombocytopenia
Venous stasis
Overactive bladder
Rectal prolapse
Essential tremor
Chronic constipation
Prostate ca (2002) s/p radical prostatectomy, XRT
Right total knee replacement
Chief Complaint
-: Clinical Sepsis, Cellulitis and Bacteremia
Subjective / Review of Systems
+ chills
Vital Signs / Physical Exam
Vital Signs
Vital Signs
Temp Pulse Resp BP Pulse Ox
97.5 F 83 24 93/75 96
07/19/25 11:25 07/19/25 12:30 07/19/25 12:30 07/19/25 12:30 07/19/25 13:07
Physical Exam
Constitutional: Acutely Ill
Cardiovascular: Irregular Rate, S1/S2 and Other (LCW PPM no erythema)
Pulmonary: Clear
Gastrointestinal: Soft, Non Tender, Non Distended and Normal Bowel Sounds
Genito-Urinary: Clear Urine
Extremities: Edema (LLE) and Erythema (LLE bright knee to foot)
Neurological: AO x 3
Objective Data
Lab Data
Lab Results
07/19/25 03:10
PT 37.0 Sec (11.4-14.6) H 07/19/25 03:10
INR 3.78 D 07/19/25 03:10
APTT 52.2 Sec (23.4-35.0) H 07/17/25 11:28
Estimated Creat Clear 61 ml/min 07/19/25 03:10
Lactic Acid 2.6 mmol/L (0.7-2.0) H 07/18/25 07:52
Total Bilirubin 3.2 mg/dl (0.2-1.3) H 07/19/25 03:10
AST 135 U/L (17-59) H 07/19/25 03:10
ALT 62 U/L (0-50) H 07/19/25 03:10
Alkaline Phosphatase 78 U/L (38-126) 07/19/25 03:10
Most recent labs reviewed.
Micro Results:
07/17/25 16:46 Salmonella/Shigella Culture - Preliminary
Feces/Stool Culture in Progress
Campylobacter Culture - Preliminary
Culture in Progress
Shiga Toxin Test - Pending
07/17/25 11:28 Blood Culture - Preliminary
Blood/Venous Group G Streptococcus
Gram Stain - Final
07/17/25 11:33 Blood Culture - Preliminary
Blood/Venous Group G Streptococcus
Gram Stain - Preliminary
07/18/25 14:51 Blood Culture - Pending
Blood/Venous
07/18/25 14:50 Blood Culture - Pending
Blood/Venous
07/17/25 11:33 Urine Culture - Final
Urine
07/17/25 16:46 C. difficile GDH Antigen & Toxins - Final
Feces/Stool Negative for toxigenic C.difficile
07/17/25 11:28 Influenza Types A & B (CHRIS) - Final
Nasal Swab Negative for Influenza A & B, NAAT
Negative results must be combined with clinical observations
and patient history.
Nucleic Acid Amplification test (NAAT)performed on the
[employer] platform.
07/17/25 CXR: Cardiomegaly. Pulmonary vascularity at least top normal. No focal parenchymal opacification to suggest pneumonia.
07/17/25 CT a/p: Probable complex cyst of the right kidney. Further evaluation with a CT of the kidneys pre- and post-IV contrast or MRI examination recommended. Malignancy not excluded. Increased complexity.
Bilateral subcentimeter hyperdense renal lesions likely benign proteinaceous cysts. New
Tiny nonobstructing bilateral renal stones. New.
Findings suggestive of fecal impaction. Moderate rectal wall thickening. Stercoral colitis cannot excluded. Progressed.
Mild diffuse bladder wall thickening. This can be seen with cystitis or bladder outlet obstruction. Stable
[2025-07-19 13:59] LABS: Hematocrit 35.4 % (39.0-52.0); Hemoglobin 12.3 g/dL (13.0-18.0); Mean Corp Hgb Conc. 34.7 g/dL (33.0-37.0); Mean Corpuscular Volume 90.8 fL (80.0-94.0); Platelet Count 65 10^3/uL (130-400); Red Cell Dist. Width 15.5 % (11.5-14.5)
--- NOTE | 2025-07-19 14:50 | CM ---
Improving, IV/Rocephin/Levophed, wean Levophed, Started Midodrine. Discharge POC: Therapy recommendation for SNF. Medicare [employer]Gov list provided with request for 4 preferences.
--- NOTE | 2025-07-19 17:00 | PTCARENOTE ---
Assumed care of pt at 1600 following transfer of care report. Pt received asleep in bed- woken for assessment and care to name. Pt's speech slow but appropriate. Following all commands. Pt noted to have generalized limited ROM of all extremities and
requires max assist w/ turning/repositioning. Condom catheter remains in use w/ pt voiding large amounts of clear yellow urine. Pt incontinent of small amount dark brown BM w/ streaks of maroon/blood. Perineal care provided. Bilateral LE elevated on
pillows. Dressing and jenni wrap to Lt LE D/I. Levophed gtt conts at 2mcg/min to maintain MAP >65. Pt remains on RA w/ Pox mid 90's. No respiratory distress. Denies c/o pain. Call hager w/in pt reach and safe environment maintained.
[2025-07-19] MEDS: CLEOCIN 50 IV (17:50)
--- NOTE | 2025-07-19 20:15 | PTCARENOTE ---
network administrator, pt aaox3, denies pain, VPaced HR 70s. RA Sat 94%. condom cath intact. finished dinner, brushed teeth, face washed. POC discussed, call hager with pt.
[2025-07-19] MEDS: TYLENOL 650 MG PO (20:23)
[2025-07-20] VITALS (42 sets, daily range): BP systolic 79–122; BP diastolic 45–79; BMI 28.1
--- NOTE | 2025-07-20 | PTCARENOTE ---
no changes in pt assessment.
[2025-07-20] MEDS: CLEOCIN 50 IV ×3 (03:00→17:54)
[2025-07-20] MEDS: LEVOPHED 250 IV (03:24)
[2025-07-20 03:53] LABS: Hematocrit 34.1 % (39.0-52.0); Hemoglobin 11.6 g/dL (13.0-18.0); Mean Corp Hgb Conc. 34.0 g/dL (33.0-37.0); Mean Corpuscular Volume 90.2 fL (80.0-94.0); Nucleated Red Blood Cells % 0 % (-); Platelet Count 69 10^3/uL (130-400); Red Cell Dist. Width 15.4 % (11.5-14.5)
[2025-07-20 03:59] LABS: INR 2.83; PT 30.1 Sec (11.4-14.6)
--- NOTE | 2025-07-20 04:00 | PTCARENOTE ---
no changes in assessment. CHG cloths, meli care, new condom cath, skin care, LLE wd care done. turned/repositioned. call hager with pt.
[2025-07-20 04:15] LABS: ALT (SGPT) 58 U/L (0-50); AST (SGOT) 89 U/L (17-59); Albumin 2.6 g/dl (3.5-5.0); Alkaline Phosphatase 135 U/L (38-126); Blood Urea Nitrogen 47 mg/dl (9-20); Calcium 8.6 mg/dl (8.4-10.2); Carbon Dioxide 26 mmol/L (22-30); Chloride 108 mmol/L (98-107); Estimated Creatinine Clearance 66 ml/min; Glucose 93 mg/dl (70-99); Potassium 3.5 mmol/L (3.5-5.1); Sodium 136 mmol/L (135-145); Total Protein 5.8 g/dl (6.3-8.2); eGFR > 60.00
[2025-07-20] MEDS: SYNTHROID 50 MCG PO (06:25)
--- NOTE | 2025-07-20 09:09 | W.PN.ID1 ---
Date of Service
Date of Service: July 20, 2025
Today's Communication
Continue ceftriaxone and clindamycin.
Assessment / Plan
# Severe LLE cellulitis
# Group G streptococcus bacteremia - cellulitis source
# Septic shock due to cellulitis/bacteremia, weaning pressor
# Fever
# TNAA improving
# Acute on chronic thrombocytopenia likely due to severe sepsis
# Elevated LFT's due to hypotension
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
# PPM
- TTE: no gross vegetations; AVR and MV repair with normal gradients
- Repeat blood cx's x 2 negative
- Continue ceftriaxone (d4).
- Added short course clindamycin 900mg IV q8 as toxin inhibitor
-Trend temps, vitals, CBC,LFT's
#Conditions present on admission:
HTN
Atrial fibrillation on Coumadin
Complete heart block s/p PPM
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
AV homograft regurgitation s/p bioprosthetic AVR 2014
Thoracic aortic aneurysm
CAD
Hypothyroidism
Chronic thrombocytopenia
Venous stasis
Overactive bladder
Rectal prolapse
Essential tremor
Chronic constipation
Prostate ca (2002) s/p radical prostatectomy, XRT
Right total knee replacement
Chief Complaint
-: Clinical Sepsis, Cellulitis and Bacteremia
Subjective / Review of Systems
Chills better.
Vital Signs / Physical Exam
Vital Signs
Vital Signs
Temp Pulse Resp BP Pulse Ox
98.8 F 72 24 95/59 96
07/20/25 03:32 07/20/25 08:00 07/20/25 08:00 07/20/25 08:00 07/20/25 08:23
Selected Entries
07/19/25
14:39 07/19/25
20:15
Temp 102.4 F H 100.6 F H
Physical Exam
Constitutional: Acutely Ill
Cardiovascular: Irregular Rate, S1/S2 and Other (LCW PPM no erythema)
Pulmonary: Clear
Gastrointestinal: Soft, Non Tender, Non Distended and Normal Bowel Sounds
Genito-Urinary: Clear Urine
Extremities: Edema (LLE decrease) and Erythema (LLE)
Wound: Other (LLE weeping blistters)
Objective Data
Lab Data
Lab Results
07/20/25 03:32
07/20/25 03:32
PT 30.1 Sec (11.4-14.6) H 07/20/25 03:32
INR 2.83 07/20/25 03:32
APTT 52.2 Sec (23.4-35.0) H 07/17/25 11:28
Estimated Creat Clear 66 ml/min 07/20/25 03:32
Lactic Acid 2.6 mmol/L (0.7-2.0) H 07/18/25 07:52
Total Bilirubin 3.1 mg/dl (0.2-1.3) H 07/20/25 03:32
AST 89 U/L (17-59) H 07/20/25 03:32
ALT 58 U/L (0-50) H 07/20/25 03:32
Alkaline Phosphatase 135 U/L (38-126) H 07/20/25 03:32
Most recent labs reviewed.
Micro Results:
07/17/25 16:46 Salmonella/Shigella Culture - Preliminary
Feces/Stool Culture in Progress
Campylobacter Culture - Preliminary
Culture in Progress
Shiga Toxin Test - Final
No E. coli Shiga Toxin 1 or 2 detected.
07/18/25 14:50 Blood Culture - Preliminary
Blood/Venous No Growth in 24 hours- Final report to follow
07/18/25 14:51 Blood Culture - Preliminary
Blood/Venous No Growth in 24 hours- Final report to follow
07/17/25 11:28 Blood Culture - Preliminary
Blood/Venous Group G Streptococcus
Gram Stain - Final
07/17/25 11:33 Blood Culture - Preliminary
Blood/Venous Group G Streptococcus
Gram Stain - Preliminary
07/17/25 11:33 Urine Culture - Final
Urine
07/17/25 16:46 C. difficile GDH Antigen & Toxins - Final
Feces/Stool Negative for toxigenic C.difficile
07/17/25 11:28 Influenza Types A & B ([facility]) - Final
Nasal Swab Negative for Influenza A & B, NAAT
Negative results must be combined with clinical observations
and patient history.
Nucleic Acid Amplification test (NAAT)performed on the
[employer] platform.
07/17/25 CXR: Cardiomegaly. Pulmonary vascularity at least top normal. No focal parenchymal opacification to suggest pneumonia.
07/17/25 CT a/p: Probable complex cyst of the right kidney. Further evaluation with a CT of the kidneys pre- and post-IV contrast or MRI examination recommended. Malignancy not excluded. Increased complexity.
Bilateral subcentimeter hyperdense renal lesions likely benign proteinaceous cysts. New
Tiny nonobstructing bilateral renal stones. New.
Findings suggestive of fecal impaction. Moderate rectal wall thickening. Stercoral colitis cannot excluded. Progressed.
Mild diffuse bladder wall thickening. This can be seen with cystitis or bladder outlet obstruction. Stable
[2025-07-20] MEDS: METAMUCIL, KONSYL 1 PACKET PO (09:18)
[2025-07-20] MEDS: VISBIOME 2 CAP PO (09:19)
[2025-07-20] MEDS: HYDROPHOR 1 APPLIC TOPICAL (09:20)
--- NOTE | 2025-07-20 10:24 | W.PN.INTV ---
Addendum entered and electronically signed by Vito Gonzalez MD 07/27/25 10:05:
CBI: Heart failure is diastolic acute on chronic.
Original Note:
Today's Communication / Plan
Recommendations
.
Assessment
-
80-year-old man with complicated cardiac history including atrial fibrillation on Coumadin, complete heart block with pacemaker, mitral valve repair, bioprosthetic aortic valve replacement, thoracic aortic aneurysm, hypertension noted. Presented
with fever, generalized weakness for the past few days, transferred to ICU for septic shock requiring pressor support.
ICU day # 3
ASSESSMENT
Septic shock requiring pressors 2/2 LLE cellulitis likely, less likely stercoral colitis or UTI
Group G Streptococcal Bacteremia
Left lower extremity cellulitis
Chronic venous stasis
Lactic acidosis
Rhabdomyolysis
Acute kidney Injury
Hyperbilirubinemia/Transaminitis
Rust Colored Diarrhea
Hypokalemia
Condition present prior admission:
Atrial fibrillation-Home warfarin
History of AV block status post pacemaker
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
History of thoracic aortic aneurysm
Hypertension
Essential tremor
Previous prostate cancer status post radical prostatectomy and radiation 2002-residual incontinence and overactive bladder
History of rectal prolapse with previous GI bleed
Hypothyroidism
Hyperlipidemia
Chronic thrombocytopenia
LE edema- Chronic venous stasis.

Cardiovascular
Requiring between 2-4 mcg/min of Levophed
Continue pressor support and wean as tolerated to goal MAP > 65
Midodrine 10mg TID added yesterday
Continue to hold home antihypertensives
Otherwise stable, requiring minimal pressor support, okay for downgrade to IMU today
Judicious use of fluids given right ventricular failure as seen on ECHO and hx HFpEF
LR bolus as needed but avoid infusions
Pro-BNP 5360 (1540 in October 2024)
S/p 20mg IV Lasix yesterday, fluid balance -2L, weight down 2kg
INR back to therapeutic range, will restart Coumadin
Continue to follow daily INR
40 mEQ oral K today
Continue PT/OT
GI
Tolerating diet
Trend LFTs - likely secondary to hepatic hypoperfusion, improving
Cachectic on exam - nutrition consult
Diarrhea improved, continue metamucil, daily CBC
Cr back to baseline even with Lasix yesterday, continue to monitor
Likely a pre-renal TANA in the setting of septic shock
Continue Ag for now and monitor outputs
ID
Spiked fever 102 yesterday, Clinda added by ID for toxin abatement; appreciate reccs
Continue to monitor temps and WBCs
Heme/Onc
On Coumadin, INR 2.83; likely in setting of abx; adjust to maintain target INR
Endo
Continue home Levothyroxine

Data reviewed:
Echocardiogram 10/2024:
Normal LVEF 50 to 55%
Right ventricular size enlarged with mildly reduced systolic function
RV flattening consistent with RV volume overload
Severe biatrial enlargement
Status post mitral valve repair
Normal function of bioprosthetic valve
Moderate to severe TR with normal pulmonary pressure
No evidence of valvular vegetations
-
CT abdomen pelvis 07/17/2025:
Right kidney cyst.
Bilateral subcentimeter hyperdense renal lesions likely benign proteinaceous cyst
Nonobstructive bilateral renal stones
Findings suggestive of fecal impaction-moderate rectal wall thickening.
Tiny bilateral pleural effusion
Subjective Dataa
Subjective Data
Date of Service:
Date of Service: July 20, 2025
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
Subjective:
No acute complaints this AM. Tolerating diet. No BMs/diarrhea overnight.
Stable and requiring between 2-4 mcg/min of Levophed, with addition of midodrine yesterday.
Review of Systems
Cardiopulmonary: Edema
Genitourinary: Ag
Objective Data
Data Reviewed
Vital Signs / I&O / Oxygen:
Vital Signs
Temp Pulse Resp BP Pulse Ox
98.8 F 72 24 108/70 96
07/20/25 03:32 07/20/25 09:18 07/20/25 08:00 07/20/25 09:18 07/20/25 08:23
Intake and Output
07/19/25 07/20/25 07/21/25
06:59 06:59 06:59
Intake Total 3177.1 / 3323.4 584.2 / 595.5 22.6 / 22.6
Output Total 2290 / 2290 2800 / 2800
Balance 887.1 / 1033.4 -2215.8 / -2204.5 22.6 / 22.6
SaO2 96
Nasal Cannula flow liters per 2
minute
Physical Exam
General: Other (Awake, alert, sitting upright and eating today)
HEENT: Normocephalic and Anicteric
Cardiovascular: S1-S2, Regular Rhythm and Peripheral Edema (Edematous lower extremities bilaterally)
Respiratory: Clear (anteriorly) and Non-Labored Respirations
GI: Soft, Non Distended, Non Tender, Normal Bowel Sounds and Other (Ag catheter draining clear dark yellow urine)
Neurology: Awake and Alert
Skin: Warm
Labs/Micro/Reports
Lab Data
07/20/25 03:32
07/20/25 03:32
Laboratory Results
07/20/25
03:32
PT 30.1 H
INR 2.83
Microbiology
07/17/25 16:46 Feces/Stool Salmonella/Shigella Culture - Final
No Salmonella, Shigella, Aeromonas or Plesiomonas species
isolated.
07/17/25 16:46 Feces/Stool Campylobacter Culture - Final
No Campylobacter species isolated.
07/17/25 16:46 Feces/Stool Shiga Toxin Test - Final
No E. coli Shiga Toxin 1 or 2 detected.
07/18/25 14:50 Blood/Venous Blood Culture - Preliminary
No Growth in 24 hours- Final report to follow
07/18/25 14:51 Blood/Venous Blood Culture - Preliminary
No Growth in 24 hours- Final report to follow
07/17/25 11:28 Blood/Venous Blood Culture - Preliminary
Group G Streptococcus
07/17/25 11:28 Blood/Venous Gram Stain - Final
07/17/25 11:33 Blood/Venous Blood Culture - Preliminary
Group G Streptococcus
07/17/25 11:33 Blood/Venous Gram Stain - Preliminary
07/17/25 11:33 Urine Urine Culture - Final
07/17/25 16:46 Feces/Stool C. difficile GDH Antigen & Toxins - Final
Negative for toxigenic C.difficile
07/17/25 11:28 Nasal Swab Influenza Types A & B ([facility]) - Final
Negative for Influenza A & B, NAAT
Negative results must be combined with clinical observations
and patient history.
Nucleic Acid Amplification test (NAAT)performed on the
[employer] platform.
--- NOTE | 2025-07-20 11:35 | W.PN.HOSP.TC ---
Today's Communication/Plan
-
Antibiotics.
Assessment / Plan
Assessment / Plan
Physical exam:
General: Acutely ill
HEENT: Normocephalic, Atraumatic and Moist Mucous Membranes
Respiratory: Clear to Auscultation; Negative Wheezes, Rales or Rhonchi
Cardiac: Regular Rhythm and S1/S2. Pacemaker no erythema
GI: Soft, Nontender and Nondistended
Musculoskeletal: Skin findings as below. No joint effusions. No Clubbing, No Cyanosis
Skin: Left lower extremity erythema edema and blisters and warmth.
Neuro: Awake, Alert and Oriented, no gross neurological deficit but generalized weakness.
Psych: Normal judgment and insight
A/P:
Septic shock due to Streptococcus G bacteremia and left lower extremity cellulitis:
Continue IV Rocephin 2 g daily and added clindamycin
Continue pressors weaning down as much as possible and continue midodrine
ID consult appreciated
Blood cultures positive group G Streptococcus on 07/17
Repeat blood cultures 07/18
Final Tester on board
Lactate fluctuating up and down
No DVT by Doppler on LLE
Echocardiogram normal EF but right ventricle overload and no gross vegetations
Updated daughter Ariadne watt
Volume overload:
IV Lasix given
Hypokalemia:
Replete and trend
TANA:
Improvement noted
Likely ATN related to sepsis
Creatinine 1.1 today which is close to his baseline
IV fluids as needed
Avoid nephrotoxic
Monitor renal function
Metabolic acidosis:
Monitor acidosis closely
Rhabdomyolysis:
Mild
CPK trending down
Hypothyroidism:
Continue levothyroxine 50 mcg p.o. daily
Permanent atrial fibrillation:
Holding rate control as, atenolol and digoxin
Restart anticoagulation, warfarin
Thrombocytopenia:
Chronic and worsening due to sepsis
Transaminitis:
Likely due to sepsis
Continue to trend
Coagulopathy with supratherapeutic INR:
Increase INR due to sepsis and meds
Restart warfarin-INR 2.83 today
Monitor trend
Other medical problems:
Hypertension
Hyperlipidemia
Chronic venous stasis changes
Overreactive bladder
Rectal prolapse
Essential tremor
Constipation
Prostate cancer status post radical prostatectomy and radiation
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
History of thoracic aortic aneurysm
Complete heart block status post pacemaker
DVT prophylaxis:
On warfarin
Total time spent on today's encounter was 50 minutes which included time spent in counseling the patient/family regarding diagnosis and treatment plan as listed above, goals of care, and symptom management. Case was discussed with nursing staff,
specialists, and care coordinators/case management. All labs and imaging personally reviewed by me. Remainder the time spent in detailed review of previous records, lab data, imaging, and other medical provider documentation.
Anticipated Discharge: > 48 hours
Subjective/Interval History
-
Date of Service: July 20, 2025
Patient feels better overall. No nausea vomiting or fever
Objective Data
-
Labs:
Laboratory Results
07/20/25
03:32
WBC 8.5
Hgb 11.6 L
Hct 34.1 L
Plt Count 69 L
PT 30.1 H
INR 2.83
Sodium 136
Potassium 3.5
Chloride 108 H
Carbon Dioxide 26
BUN 47 H
Creatinine 1.1
Glucose 93
Calcium 8.6
Total Bilirubin 3.1 H
AST 89 H
ALT 58 H
Alkaline Phosphatase 135 H
Vital Signs:
Vital Signs
Temp Pulse Resp BP Pulse Ox
98.8 F 72 24 108/70 96
07/20/25 03:32 07/20/25 09:18 07/20/25 08:00 07/20/25 09:18 07/20/25 08:23
I&O
07/19/25 07/20/25 07/21/25
06:59 06:59 06:59
Intake Total 3177.1 / 3323.4 584.2 / 595.5 575.2 / 575.2
Output Total 2290 / 2290 2800 / 2800
Balance 887.1 / 1033.4 -2215.8 / -2204.5 575.2 / 575.2
--- NOTE | 2025-07-20 12:00 | PTCARENOTE ---
Patient resting comfortably in bed. Remains on Levo infusion to maintain MAP goal >65. Assisted with setup for meals. Discussed plan of care with patient following rounds. Assessment unchanged from previous. Care ongoing.
[2025-07-20] MEDS: KCL 40 MEQ PO (12:08)
[2025-07-20] MEDS: TYLENOL 650 MG PO (13:29)
[2025-07-20] MEDS: ROCEPHIN 2000 MG IV (13:29)
[2025-07-20] MEDS: STERILE WATER FOR INJECTION 20 ML IV (14:01)
--- NOTE | 2025-07-20 16:02 | CM ---
IV/Levophed,Rocephin and Cleocin, Weaning Levophed as able, hold antihypertensives. Discharge POC: Therapy recommended SNF. Medicare[employer] list provided. Patient will discuss with daughter when she visits.
--- NOTE | 2025-07-20 18:23 | PTCARENOTE ---
No change in assessment. VS trends documented. Resting comfortably in bed eating dinner and watching television. Call hager within reach
[2025-07-20] MEDS: COUMADIN 7.5 MG PO (20:33)
[2025-07-21] VITALS (45 sets, daily range): BP systolic 79–115; BP diastolic 48–67; PULSE 70; O2SAT 97; BMI 28.6
[2025-07-21] MEDS: LEVOPHED 250 IV (00:01)
[2025-07-21] MEDS: CLEOCIN 50 IV ×3 (02:49→18:19)
[2025-07-21] MEDS: SYNTHROID 50 MCG PO (05:11)
[2025-07-21 05:39] LABS: INR 2.99; PT 31.4 Sec (11.4-14.6)
[2025-07-21 05:42] LABS: Hematocrit 33.5 % (39.0-52.0); Hemoglobin 11.5 g/dL (13.0-18.0); Mean Corp Hgb Conc. 34.3 g/dL (33.0-37.0); Mean Corpuscular Volume 90.5 fL (80.0-94.0); Nucleated Red Blood Cells % 0 % (-); Platelet Count 62 10^3/uL (130-400); Red Cell Dist. Width 15.3 % (11.5-14.5)
[2025-07-21 05:51] LABS: Blood Urea Nitrogen 38 mg/dl (9-20); Calcium 8.4 mg/dl (8.4-10.2); Carbon Dioxide 24 mmol/L (22-30); Chloride 106 mmol/L (98-107); Estimated Creatinine Clearance 81 ml/min; Glucose 101 mg/dl (70-99); Potassium 3.9 mmol/L (3.5-5.1); Sodium 135 mmol/L (135-145); eGFR > 60.00
[2025-07-21 06:15] LABS: Digoxin < 0.4 ng/ml (0.8-2.0)
[2025-07-21 06:21] LABS: Cortisol, Random 17.4 ug/dl
--- NOTE | 2025-07-21 08:40 | PTCARENOTE ---
Assumed care of pt at 0715 following shift report. Pt woken to name for assessment and care. Denies c/o pain. Levophed infusing at 4mcg/min to maintain MAP >[address] Tolentino in room to evaluate pt- dressing to RLE removed and Dr Tolentino visualized
wound/skin. No new orders received at this timed. Pt turned/repositioned, comfort care, hygiene provided. Call hager w/in pt reach and safe environment maintained.
--- NOTE | 2025-07-21 09:06 | W.PN.ID1 ---
Date of Service
Date of Service: July 21, 2025
Today's Communication
Continie ceftriaxone/clinda.
Assessment / Plan
# Severe LLE cellulitis
# Group G streptococcus bacteremia - cellulitis source
# Septic shock due to cellulitis/bacteremia, weaning pressor
# Fever resolved
# TANA improving
# Acute on chronic thrombocytopenia - stable
# Elevated LFT's due to hypotension
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
# PPM
- TTE: no gross vegetations; AVR and MV repair with normal gradients
- Repeat blood cx's x 2 negative
- Continue ceftriaxone (d5).
- Added short course clindamycin 900mg IV q8 as toxin inhibitor (d2 of 3)
-Trend temps, vitals, CBC,LFT's
#Conditions present on admission:
HTN
Atrial fibrillation on Coumadin
Complete heart block s/p PPM
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
AV homograft regurgitation s/p bioprosthetic AVR 2014
Thoracic aortic aneurysm
CAD
Hypothyroidism
Chronic thrombocytopenia
Venous stasis
Overactive bladder
Rectal prolapse
Essential tremor
Chronic constipation
Prostate ca (2002) s/p radical prostatectomy, XRT
Right total knee replacement
Chief Complaint
-: Clinical Sepsis, Cellulitis and Bacteremia
Subjective / Review of Systems
Feeling better.
Vital Signs / Physical Exam
Vital Signs
Vital Signs
Temp Pulse Resp BP Pulse Ox
98.3 F 77 26 99/60 95
07/21/25 08:00 07/21/25 06:30 07/21/25 06:30 07/21/25 06:30 07/21/25 06:30
Physical Exam
Constitutional: Comfortable
Cardiovascular: Irregular Rate, S1/S2 and Other (LCW PPM site no erythema)
Pulmonary: Clear
Gastrointestinal: Soft, Non Tender, Non Distended and Normal Bowel Sounds
Genito-Urinary: Clear Urine
Extremities: Edema (LLE edema decreased to 2+), Erythema (LLE erythema has decreased. ) and Other (LLE blisters with serous fluid)
Neurological: AO x 3
Objective Data
Lab Data
Lab Results
07/21/25 05:12
07/21/25 05:12
PT 31.4 Sec (11.4-14.6) H 07/21/25 05:12
INR 2.99 07/21/25 05:12
APTT 52.2 Sec (23.4-35.0) H 07/17/25 11:28
Estimated Creat Clear 81 ml/min 07/21/25 05:12
Lactic Acid 2.6 mmol/L (0.7-2.0) H 07/18/25 07:52
Total Bilirubin 3.1 mg/dl (0.2-1.3) H 07/20/25 03:32
AST 89 U/L (17-59) H 07/20/25 03:32
ALT 58 U/L (0-50) H 07/20/25 03:32
Alkaline Phosphatase 135 U/L (38-126) H 07/20/25 03:32
Most recent labs reviewed.
Micro Results:
07/18/25 14:50 Blood Culture - Preliminary
Blood/Venous No Growth in 48 hours- Final report to follow
07/18/25 14:51 Blood Culture - Preliminary
Blood/Venous No Growth in 48 hours- Final report to follow
07/17/25 16:46 Salmonella/Shigella Culture - Final
Feces/Stool No Salmonella, Shigella, Aeromonas or Plesiomonas species
isolated.
Campylobacter Culture - Final
No Campylobacter species isolated.
Shiga Toxin Test - Final
No E. coli Shiga Toxin 1 or 2 detected.
07/17/25 11:28 Blood Culture - Preliminary
Blood/Venous Group G Streptococcus
Gram Stain - Final
07/17/25 11:33 Blood Culture - Preliminary
Blood/Venous Group G Streptococcus
Gram Stain - Preliminary
07/17/25 11:33 Urine Culture - Final
Urine
07/17/25 16:46 C. difficile GDH Antigen & Toxins - Final
Feces/Stool Negative for toxigenic C.difficile
07/17/25 11:28 Influenza Types A & B ([facility]) - Final
Nasal Swab Negative for Influenza A & B, NAAT
Negative results must be combined with clinical observations
and patient history.
Nucleic Acid Amplification test (NAAT)performed on the
[employer] platform.
07/17/25 CXR: Cardiomegaly. Pulmonary vascularity at least top normal. No focal parenchymal opacification to suggest pneumonia.
07/17/25 CT a/p: Probable complex cyst of the right kidney. Further evaluation with a CT of the kidneys pre- and post-IV contrast or MRI examination recommended. Malignancy not excluded. Increased complexity.
Bilateral subcentimeter hyperdense renal lesions likely benign proteinaceous cysts. New
Tiny nonobstructing bilateral renal stones. New.
Findings suggestive of fecal impaction. Moderate rectal wall thickening. Stercoral colitis cannot excluded. Progressed.
Mild diffuse bladder wall thickening. This can be seen with cystitis or bladder outlet obstruction. Stable
[2025-07-21] MEDS: VISBIOME 2 CAP PO (09:13)
[2025-07-21] MEDS: METAMUCIL, KONSYL 1 PACKET PO (09:14)
[2025-07-21] MEDS: HYDROPHOR 1 APPLIC TOPICAL (09:14)
[2025-07-21] MEDS: ALBUMIN 5% 250 IV (10:42)
--- NOTE | 2025-07-21 12:26 | W.PN.HOSP.TC ---
Today's Communication/Plan
-
Antibiotics. Monitoring hemodynamic
Assessment / Plan
Assessment / Plan
Physical exam:
General: Acutely ill
HEENT: Normocephalic, Atraumatic and Moist Mucous Membranes
Respiratory: Clear to Auscultation; Negative Wheezes, Rales or Rhonchi
Cardiac: Regular Rhythm and S1/S2. Pacemaker no erythema
GI: Soft, Nontender and Nondistended
Musculoskeletal: Skin findings as below. No joint effusions. No Clubbing, No Cyanosis
Skin: Left lower extremity erythema edema and blisters and warmth.
Neuro: Awake, Alert and Oriented, no gross neurological deficit but generalized weakness.
Psych: Normal judgment and insight
A/P:
Septic shock due to Streptococcus G bacteremia and left lower extremity cellulitis:
Continue IV Rocephin 2 g daily and clindamycin
Continue pressors weaning down as much as possible and continue midodrine
ID consult appreciated
Blood cultures positive group G Streptococcus on 07/17
Repeat blood cultures 07/18 and sterile
Icer Hand on board
Lactate fluctuating up and down
No DVT by Doppler on LLE
Echocardiogram normal EF but right ventricle overload and no gross vegetations
Updated daughter priorAriadne
07/21:
Continue antibiotics
Albumin bolus and wean pressors
Volume overload:
IV Lasix given
Hypokalemia:
Replete and trend
TANA:
Improvement noted
Likely ATN related to sepsis
Creatinine 0.9 today which is his baseline
IV fluids as needed
Avoid nephrotoxic
Monitor renal function
Metabolic acidosis:
Monitor acidosis closely
Rhabdomyolysis:
Mild
CPK trending down
Hypothyroidism:
Continue levothyroxine 50 mcg p.o. daily
Permanent atrial fibrillation:
Holding rate control as, atenolol and digoxin
Restart anticoagulation, warfarin
Thrombocytopenia:
Chronic and worsening due to sepsis
Transaminitis:
Likely due to sepsis
Continue to trend
Coagulopathy with supratherapeutic INR:
Increase INR due to sepsis and meds
Restart warfarin-INR 2.99 today
Monitor trend and any signs of bleeding
Other medical problems:
Hypertension
Hyperlipidemia
Chronic venous stasis changes
Overreactive bladder
Rectal prolapse
Essential tremor
Constipation
Prostate cancer status post radical prostatectomy and radiation
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
History of thoracic aortic aneurysm
Complete heart block status post pacemaker
DVT prophylaxis:
On warfarin
Total time spent on today's encounter was 51 minutes which included time spent in counseling the patient/family regarding diagnosis and treatment plan as listed above, goals of care, and symptom management. Case was discussed with nursing staff,
specialists, and care coordinators/case management. All labs and imaging personally reviewed by me. Remainder the time spent in detailed review of previous records, lab data, imaging, and other medical provider documentation.
Anticipated Discharge: > 48 hours
Subjective/Interval History
-
Date of Service: July 21, 2025
No nausea or vomiting. Still having low-grade fevers and blood pressure soft
Objective Data
-
Labs:
Laboratory Results
07/21/25
05:12
WBC 6.5
Hgb 11.5 L
Hct 33.5 L
Plt Count 62 L
PT 31.4 H
INR 2.99
Sodium 135
Potassium 3.9
Chloride 106
Carbon Dioxide 24
BUN 38 H
Creatinine 0.9
Glucose 101 H
Calcium 8.4
Vital Signs:
Vital Signs
Temp Pulse Resp BP Pulse Ox
99.2 F 85 26 93/55 95
07/21/25 11:57 07/21/25 09:14 07/21/25 06:30 07/21/25 09:14 07/21/25 08:05
I&O
07/20/25 07/21/25 07/22/25
06:59 06:59 06:59
Intake Total 584.2 / 595.5 1730.8 / 1745.8 555 / 555
Output Total 2800 / 2800 1625 / 1625
Balance -2215.8 / -2204.5 105.8 / 120.8 555 / 555
--- NOTE | 2025-07-21 13:08 | W.PN.INTV ---
Today's Communication / Plan
Recommendations
Albumin bolus today
Wean off Levophed as able
Continue midodrine
Continue antibiotic per infectious disease
Incentive spirometry
Nutritional support
Monitor INR and monitor for bleeding
Assessment
-
80-year-old man with complicated cardiac history including atrial fibrillation on Coumadin, complete heart block with pacemaker, mitral valve repair, bioprosthetic aortic valve replacement, thoracic aortic aneurysm, hypertension noted. Presented
with fever, generalized weakness for the past few days, transferred to ICU for septic shock requiring pressor support.
ICU day # 3
ASSESSMENT
Septic shock requiring pressors 2/2 LLE cellulitis likely, less likely stercoral colitis or UTI
Group G Streptococcal Bacteremia
Left lower extremity cellulitis
Chronic venous stasis
Lactic acidosis
Rhabdomyolysis
Acute kidney Injury
Hyperbilirubinemia/Transaminitis
Rust Colored Diarrhea
Hypokalemia
Condition present prior admission:
Atrial fibrillation-Home warfarin
History of AV block status post pacemaker
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
History of thoracic aortic aneurysm
Hypertension
Essential tremor
Previous prostate cancer status post radical prostatectomy and radiation 2002-residual incontinence and overactive bladder
History of rectal prolapse with previous GI bleed
Hypothyroidism
Hyperlipidemia
Chronic thrombocytopenia
LE edema- Chronic venous stasis.

Assessment and plan:
Overall septic shock has improved since admission-remains on low-dose Levophed. Difficult to wean off.
Currently at 2 mics per minute.
Albumin bolus given today 07/21/2025
Renal function is normal
Random cortisol level is 17.4--->Previously on admission was 27.
-
Continue pressor support and wean as tolerated to goal MAP > 65
Midodrine 10mg TID added 07/20/2025-continue for now
Continue to hold home antihypertensives
Judicious use of fluids given right ventricular failure as seen on ECHO and hx HFpEF
LR bolus as needed but avoid infusions
Pro-BNP 5360 (1540 in October 2024)
S/p 20mg IV Lasix yesterday, fluid balance -2L, weight down 2kg-no further diuretics necessary.
-
Coumadin coagulopathy on admission.
No evidence for bleeding.
INR back to therapeutic range, will restart Coumadin Coumadin restarted 07/20/2025
Continue to follow daily INR
-
ID
Left lower extremity cellulitis:
Last fever spike 07/19/2025
Continue clindamycin/ceftriaxone per infectious disease
Continue to monitor temps and WBCs
-
GI
Tolerating diet
Trend LFTs - likely secondary to hepatic hypoperfusion, improving
Cachectic on exam - nutrition consult
Diarrhea improved, continue metamucil, daily CBC
Heme/Onc
On Coumadin, INR 2.83; likely in setting of abx; adjust to maintain target INR
Chronic thrombocytopenia stable
Continue IMU level of care
Critical care will follow briefly

Data reviewed:
Echocardiogram 10/2024:
Normal LVEF 50 to 55%
Right ventricular size enlarged with mildly reduced systolic function
RV flattening consistent with RV volume overload
Severe biatrial enlargement
Status post mitral valve repair
Normal function of bioprosthetic valve
Moderate to severe TR with normal pulmonary pressure
No evidence of valvular vegetations
-
CT abdomen pelvis 07/17/2025:
Right kidney cyst.
Bilateral subcentimeter hyperdense renal lesions likely benign proteinaceous cyst
Nonobstructive bilateral renal stones
Findings suggestive of fecal impaction-moderate rectal wall thickening.
Tiny bilateral pleural effusion
Subjective Dataa
Subjective Data
Date of Service:
Date of Service: July 21, 2025
Chief Complaint: [employer] Member Follow Up
Subjective:
Patient offers no new complaints
Continues to have right lower extremity pain
Denies nausea or vomiting
Review of Systems
GI: Abdominal Pain (n), Nausea (n) and Vomiting (n)
Neuro: Headache (n)
Objective Data
Data Reviewed
Vital Signs / I&O / Oxygen:
Vital Signs
Temp Pulse Resp BP Pulse Ox
99.2 F 85 26 93/55 95
07/21/25 11:57 07/21/25 09:14 07/21/25 06:30 07/21/25 09:14 07/21/25 08:05
Intake and Output
07/20/25 07/21/25 07/22/25
06:59 06:59 06:59
Intake Total 584.2 / 595.5 1730.8 / 1745.8 555 / 555
Output Total 2800 / 2800 1625 / 1625
Balance -2215.8 / -2204.5 105.8 / 120.8 555 / 555
SaO2 95
Nasal Cannula flow liters per 2
minute
Physical Exam
General: Other (Awake, alert, sitting upright and eating today)
HEENT: Normocephalic and Anicteric
Cardiovascular: S1-S2, Regular Rhythm and Peripheral Edema (Edematous lower extremities bilaterally)
Respiratory: Clear (anteriorly) and Non-Labored Respirations
GI: Soft, Non Distended, Non Tender, Normal Bowel Sounds and Other (Ag catheter draining clear dark yellow urine)
Neurology: Awake and Alert
Skin: Warm and Other (Chronic venous stasis. Right lower extremity with chronic stasis changes, erythema, warmth up to the lower thigh.)
Labs/Micro/Reports
Lab Data
07/21/25 05:12
07/21/25 05:12
Laboratory Results
07/21/25
05:12
PT 31.4 H
INR 2.99
Microbiology
07/18/25 14:50 Blood/Venous Blood Culture - Preliminary
No Growth in 48 hours- Final report to follow
07/18/25 14:51 Blood/Venous Blood Culture - Preliminary
No Growth in 48 hours- Final report to follow
07/17/25 16:46 Feces/Stool Salmonella/Shigella Culture - Final
No Salmonella, Shigella, Aeromonas or Plesiomonas species
isolated.
07/17/25 16:46 Feces/Stool Campylobacter Culture - Final
No Campylobacter species isolated.
07/17/25 16:46 Feces/Stool Shiga Toxin Test - Final
No E. coli Shiga Toxin 1 or 2 detected.
07/17/25 11:28 Blood/Venous Blood Culture - Preliminary
Group G Streptococcus
07/17/25 11:28 Blood/Venous Gram Stain - Final
07/17/25 11:33 Blood/Venous Blood Culture - Preliminary
Group G Streptococcus
07/17/25 11:33 Blood/Venous Gram Stain - Preliminary
07/17/25 11:33 Urine Urine Culture - Final
[2025-07-21] MEDS: ROCEPHIN 2000 MG IV (15:15)
[2025-07-21] MEDS: STERILE WATER FOR INJECTION 20 ML IV (15:15)
[2025-07-21] MEDS: TYLENOL 650 MG PO (15:38)
--- NOTE | 2025-07-21 16:30 | PTCARENOTE ---
Levophed gtt off since 1314. OOB to chair w/ PT/OT. Per report pt max assistx2 staff and use of walker. Levar sling placed on chair prior to pt sitting down. No new complaints received from pt or changes noted from previous assessment findings.
[2025-07-21] MEDS: COUMADIN 5 MG PO (18:19)
--- NOTE | 2025-07-21 18:39 | PTCARENOTE ---
Returned to bed at pt's requests using Levar lift to transfer. Uneventful. Pt incont of smear dark burgundy stool. Pericare provided. LLE elevated on pillow. No change in marked edges of noted erythema. Pt assisted w/ eating dinner. No new
complaints.
--- NOTE | 2025-07-21 22:22 | PTCARENOTE ---
patient resting comfortably in bed, no c/o pain or discomfort only generalized weakness. family at bedside, all questions answered. she is unsure of why her dad is so weak, we reviewed simple exercise he can do in bed (arm lift, leg pumps, etc)
to increase strength. patient placed back on levo at 2 as his MAP was 60 and 61, patient bp is currenty 97/66 with map of 71.
[2025-07-22] VITALS (14 sets, daily range): BP systolic 89–110; BP diastolic 54–68; BMI 28.6
[2025-07-22] MEDS: CLEOCIN 50 IV ×2 (02:06→11:22)
[2025-07-22 04:26] LABS: Hematocrit 32.4 % (39.0-52.0); Hemoglobin 11.3 g/dL (13.0-18.0); Mean Corp Hgb Conc. 34.9 g/dL (33.0-37.0); Mean Corpuscular Volume 89.8 fL (80.0-94.0); Nucleated Red Blood Cells % 0 % (-); Platelet Count 71 10^3/uL (130-400); Red Cell Dist. Width 15.5 % (11.5-14.5)
[2025-07-22 04:37] LABS: INR 4.40; PT 41.5 Sec (11.4-14.6)
[2025-07-22 04:43] LABS: ALT (SGPT) 46 U/L (0-50); AST (SGOT) 60 U/L (17-59); Albumin 2.7 g/dl (3.5-5.0); Alkaline Phosphatase 195 U/L (38-126); Blood Urea Nitrogen 39 mg/dl (9-20); Calcium 8.0 mg/dl (8.4-10.2); Carbon Dioxide 25 mmol/L (22-30); Chloride 104 mmol/L (98-107); Estimated Creatinine Clearance 73 ml/min; Glucose 85 mg/dl (70-99); Potassium 4.1 mmol/L (3.5-5.1); Sodium 134 mmol/L (135-145); Total Protein 6.2 g/dl (6.3-8.2); eGFR > 60.00
--- NOTE | 2025-07-22 08:34 | PTCARENOTE ---
0700 assumed care; Patient in bed. Levophed off.
AAO x 3
BP via Left Upper arm: 99/63 MAP 73; V-P 75;
RR 26; SpO2: 96%RA
Abdomen soft non tender;
Condom catheter draining clear yellow urine
Peripheral line : left Ac and RT wrist capped flushed
call hager within reach
[2025-07-22] MEDS: METAMUCIL, KONSYL 1 PACKET PO (08:48)
[2025-07-22] MEDS: SYNTHROID 50 MCG PO (08:48)
[2025-07-22] MEDS: VISBIOME 2 CAP PO (08:48)
[2025-07-22] MEDS: HYDROPHOR 1 APPLIC TOPICAL (08:54)
--- NOTE | 2025-07-22 09:46 | W.PN.ID1 ---
Date of Service
Date of Service: July 22, 2025
Today's Communication
Continue ceftriaxine and clindamycin.
Assessment / Plan
# Severe LLE cellulitis
# Group G streptococcus bacteremia - cellulitis source
# Septic shock due to cellulitis/bacteremia, weaning pressor
# Fever low grade
# TANA resolved
# Acute on chronic thrombocytopenia - stable
# Elevated LFT's trending down
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
# PPM
- TTE: no gross vegetations; AVR and MV repair with normal gradients
- Repeat blood cx's x 2 negative
- Continue ceftriaxone (d6).
- Added short course clindamycin 900mg IV q8 as toxin inhibitor (d3 of 3)
-Trend temps, vitals, CBC,LFT's
#Conditions present on admission:
HTN
Atrial fibrillation on Coumadin
Complete heart block s/p PPM
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
AV homograft regurgitation s/p bioprosthetic AVR 2014
Thoracic aortic aneurysm
CAD
Hypothyroidism
Chronic thrombocytopenia
Venous stasis
Overactive bladder
Rectal prolapse
Essential tremor
Chronic constipation
Prostate ca (2002) s/p radical prostatectomy, XRT
Right total knee replacement
Chief Complaint
-: Clinical Sepsis, Cellulitis and Bacteremia
Subjective / Review of Systems
Hungry. No new complaints.
Vital Signs / Physical Exam
Vital Signs
Vital Signs
Temp Pulse Resp BP Pulse Ox
98.5 F 70 29 99/53 93
07/22/25 07:08 07/22/25 08:48 07/22/25 07:30 07/22/25 08:48 07/22/25 07:30
Selected Entries
07/21/25
15:21 07/21/25
19:44
Temp 100.5 F H 100.4 F H
Physical Exam
Constitutional: Comfortable
Eyes: No Conjunctival Hemorrhage
Cardiovascular: Irregular Rate, S1/S2 and Other (LCW PPM site no erythema)
Pulmonary: Clear
Gastrointestinal: Soft, Non Tender, Non Distended and Normal Bowel Sounds
Genito-Urinary: Clear Urine
Extremities: Edema (LLE edema decreased to 2+), Erythema (LLE erythema has decreased. ) and Other (LLE blisters with serous fluid)
Neurological: AO x 3
Objective Data
Lab Data
Lab Results
07/22/25 04:11
07/22/25 04:11
PT 41.5 Sec (11.4-14.6) H 07/22/25 04:11
INR 4.40 07/22/25 04:11
APTT 52.2 Sec (23.4-35.0) H 07/17/25 11:28
Estimated Creat Clear 73 ml/min 07/22/25 04:11
Lactic Acid 2.6 mmol/L (0.7-2.0) H 07/18/25 07:52
Total Bilirubin 4.1 mg/dl (0.2-1.3) H 07/22/25 04:11
AST 60 U/L (17-59) H 07/22/25 04:11
ALT 46 U/L (0-50) 07/22/25 04:11
Alkaline Phosphatase 195 U/L (38-126) H 07/22/25 04:11
Most recent labs reviewed.
Micro Results:
07/18/25 14:50 Blood Culture - Preliminary
Blood/Venous No Growth in 72 hours- Final report to follow
07/18/25 14:51 Blood Culture - Preliminary
Blood/Venous No Growth in 72 hours- Final report to follow
07/17/25 16:46 Salmonella/Shigella Culture - Final
Feces/Stool No Salmonella, Shigella, Aeromonas or Plesiomonas species
isolated.
Campylobacter Culture - Final
No Campylobacter species isolated.
Shiga Toxin Test - Final
No E. coli Shiga Toxin 1 or 2 detected.
07/17/25 11:28 Blood Culture - Preliminary
Blood/Venous Group G Streptococcus
Gram Stain - Final
07/17/25 11:33 Blood Culture - Preliminary
Blood/Venous Group G Streptococcus
Gram Stain - Preliminary
07/17/25 11:33 Urine Culture - Final
Urine
07/17/25 16:46 C. difficile GDH Antigen & Toxins - Final
Feces/Stool Negative for toxigenic C.difficile
07/17/25 11:28 Influenza Types A & B ([facility]) - Final
Nasal Swab Negative for Influenza A & B, NAAT
Negative results must be combined with clinical observations
and patient history.
Nucleic Acid Amplification test (NAAT)performed on the
[employer] platform.
07/17/25 CXR: Cardiomegaly. Pulmonary vascularity at least top normal. No focal parenchymal opacification to suggest pneumonia.
07/17/25 CT a/p: Probable complex cyst of the right kidney. Further evaluation with a CT of the kidneys pre- and post-IV contrast or MRI examination recommended. Malignancy not excluded. Increased complexity.
Bilateral subcentimeter hyperdense renal lesions likely benign proteinaceous cysts. New
Tiny nonobstructing bilateral renal stones. New.
Findings suggestive of fecal impaction. Moderate rectal wall thickening. Stercoral colitis cannot excluded. Progressed.
Mild diffuse bladder wall thickening. This can be seen with cystitis or bladder outlet obstruction. Stable
--- NOTE | 2025-07-22 11:29 | W.PN.HOSP.TC ---
Today's Communication/Plan
-
Antibiotics
Assessment / Plan
Assessment / Plan
Physical exam:
General: Acutely ill
HEENT: Normocephalic, Atraumatic and Moist Mucous Membranes
Respiratory: Clear to Auscultation; Negative Wheezes, Rales or Rhonchi
Cardiac: Regular Rhythm and S1/S2. Pacemaker no erythema
GI: Soft, Nontender and Nondistended
Musculoskeletal: Skin findings as below. No joint effusions. No Clubbing, No Cyanosis
Skin: Left lower extremity erythema edema and blisters and warmth.
Neuro: Awake, Alert and Oriented, no gross neurological deficit but generalized weakness.
Psych: Normal judgment and insight
A/P:
Septic shock due to Streptococcus G bacteremia and left lower extremity cellulitis:
Continue IV Rocephin 2 g daily and clindamycin
Continue pressors weaning down as much as possible and continue midodrine
ID consult appreciated
Blood cultures positive group G Streptococcus on 07/17
Repeat blood cultures 07/18 and sterile
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
Lactate fluctuating up and down
No DVT by Doppler on LLE
Echocardiogram normal EF but right ventricle overload and no gross vegetations
Updated daughter priorAriadne
07/21:
Continue antibiotics
Albumin bolus and wean pressors
07/22:
Continue antibiotics, ceftriaxone
Off clindamycin
INR supratherapeutic today so hold warfarin
Volume overload:
IV Lasix given
Hypokalemia:
Replete and trend
TANA:
Improvement noted
Likely ATN related to sepsis
Creatinine 0.9 today which is his baseline
IV fluids as needed
Avoid nephrotoxic
Monitor renal function
Metabolic acidosis:
Monitor acidosis closely
Rhabdomyolysis:
Mild
CPK trending down
Hypothyroidism:
Continue levothyroxine 50 mcg p.o. daily
Permanent atrial fibrillation:
Holding rate control as, atenolol and digoxin
Restart anticoagulation, warfarin
Thrombocytopenia:
Chronic and worsening due to sepsis
Transaminitis:
Likely due to sepsis
Continue to trend
Coagulopathy with supratherapeutic INR:
Increase INR due to sepsis and meds
Hold warfarin-INR 4.4 today
Monitor trend and any signs of bleeding
Other medical problems:
Hypertension
Hyperlipidemia
Chronic venous stasis changes
Overreactive bladder
Rectal prolapse
Essential tremor
Constipation
Prostate cancer status post radical prostatectomy and radiation
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
History of thoracic aortic aneurysm
Complete heart block status post pacemaker
DVT prophylaxis:
On warfarin
Total time spent on today's encounter was 51 minutes which included time spent in counseling the patient/family regarding diagnosis and treatment plan as listed above, goals of care, and symptom management. Case was discussed with nursing staff,
specialists, and care coordinators/case management. All labs and imaging personally reviewed by me. Remainder the time spent in detailed review of previous records, lab data, imaging, and other medical provider documentation.
Anticipated Discharge: > 48 hours
Subjective/Interval History
-
Date of Service: July 22, 2025
Patient denies any chest pain or shortness of breath. He transiently required some small amount of pressors overnight but off pressors today. Afebrile
Objective Data
-
Labs:
Laboratory Results
07/22/25
04:11
WBC 8.7
Hgb 11.3 L
Hct 32.4 L
Plt Count 71 L
PT 41.5 H
INR 4.40
Sodium 134 L
Potassium 4.1
Chloride 104
Carbon Dioxide 25
BUN 39 H
Creatinine 1.0
Glucose 85
Calcium 8.0 L
Total Bilirubin 4.1 H
AST 60 H
ALT 46
Alkaline Phosphatase 195 H
Vital Signs:
Vital Signs
Temp Pulse Resp BP Pulse Ox
99.9 F 70 29 99/53 93
07/22/25 11:06 07/22/25 08:48 07/22/25 07:30 07/22/25 08:48 07/22/25 07:30
I&O
07/21/25 07/22/25 07/23/25
06:59 06:59 06:59
Intake Total 1730.8 / 1745.8 2092.5 / 2092.5 120 / 120
Output Total 1625 / 1625 1150 / 1150
Balance 105.8 / 120.8 942.5 / 942.5 120 / 120
--- NOTE | 2025-07-22 11:55 | W.PN.INTV ---
Today's Communication / Plan
Recommendations
Continue antibiotics
Continue to monitor hemodynamics off vasopressors
Follow-up INR
Monitor hemoglobin and platelet counts.
Sign off
Assessment
-
80-year-old man with complicated cardiac history including atrial fibrillation on Coumadin, complete heart block with pacemaker, mitral valve repair, bioprosthetic aortic valve replacement, thoracic aortic aneurysm, hypertension noted. Presented
with fever, generalized weakness for the past few days, transferred to ICU for septic shock requiring pressor support.
ICU day # 3
ASSESSMENT
Septic shock requiring pressors 2/2 LLE cellulitis likely, less likely stercoral colitis or UTI
Group G Streptococcal Bacteremia
Left lower extremity cellulitis
Chronic venous stasis
Lactic acidosis
Rhabdomyolysis
Acute kidney Injury
Hyperbilirubinemia/Transaminitis
Rust Colored Diarrhea
Hypokalemia
Condition present prior admission:
Atrial fibrillation-Home warfarin
History of AV block status post pacemaker
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
History of thoracic aortic aneurysm
Hypertension
Essential tremor
Previous prostate cancer status post radical prostatectomy and radiation 2002-residual incontinence and overactive bladder
History of rectal prolapse with previous GI bleed
Hypothyroidism
Hyperlipidemia
Chronic thrombocytopenia
LE edema- Chronic venous stasis.

Assessment and plan:
Overall septic shock has improved since admission-remains on low-dose Levophed. Difficult to wean off.
Levophed has been discontinued since yesterday
Renal function is normal
Random cortisol level is 17.4--->Previously on admission was 27.
-
Continue therapy for cellulitis.
Midodrine 10mg TID added 07/20/2025-continue for now
Continue to hold home antihypertensives
Judicious use of fluids given right ventricular failure as seen on ECHO and hx HFpEF
LR bolus as needed but avoid infusions
Pro-BNP 5360 (1540 in October 2024)
S/p 20mg IV Lasix yesterday, fluid balance -2L, weight down 2kg-no further diuretics necessary.
-
Coumadin coagulopathy on admission.
No evidence for bleeding.
INR back to therapeutic range, continue Coumadin restarted 07/20/2025
Continue to follow daily INR
-
ID
Left lower extremity cellulitis:
Last fever spike 07/19/2025
Continue clindamycin/ceftriaxone per infectious disease
Continue to monitor temps and WBCs
-
Heme/Onc
On Coumadin, INR 2.83; likely in setting of abx; adjust to maintain target INR
Chronic thrombocytopenia stable
Critical care team will sign off.
Please call with questions.

Data reviewed:
Echocardiogram 10/2024:
Normal LVEF 50 to 55%
Right ventricular size enlarged with mildly reduced systolic function
RV flattening consistent with RV volume overload
Severe biatrial enlargement
Status post mitral valve repair
Normal function of bioprosthetic valve
Moderate to severe TR with normal pulmonary pressure
No evidence of valvular vegetations
-
CT abdomen pelvis 07/17/2025:
Right kidney cyst.
Bilateral subcentimeter hyperdense renal lesions likely benign proteinaceous cyst
Nonobstructive bilateral renal stones
Findings suggestive of fecal impaction-moderate rectal wall thickening.
Tiny bilateral pleural effusion
Subjective Dataa
Subjective Data
Date of Service:
Date of Service: July 22, 2025
Chief Complaint: Gear Inspector Follow Up
Subjective:
Patient offers no new complaints
Denies shortness of breath or coughing
Remains on room air
Review of Systems
Cardiopulmonary: Dyspnea (Chronic) and Dyspnea on Exertion ( chronic)
Objective Data
Data Reviewed
Vital Signs / I&O / Oxygen:
Vital Signs
Temp Pulse Resp BP Pulse Ox
99.9 F 70 29 99/53 93
07/22/25 11:06 07/22/25 08:48 07/22/25 07:30 07/22/25 08:48 07/22/25 07:30
Intake and Output
07/21/25 07/22/25 07/23/25
06:59 06:59 06:59
Intake Total 1730.8 / 1745.8 2092.5 / 2092.5 120 / 120
Output Total 1625 / 1625 1150 / 1150
Balance 105.8 / 120.8 942.5 / 942.5 120 / 120
SaO2 93
Nasal Cannula flow liters per 2
minute
Physical Exam
General: Other (Awake, alert, sitting upright and eating today)
HEENT: Normocephalic and Anicteric
Cardiovascular: S1-S2, Regular Rhythm and Peripheral Edema (Edematous lower extremities bilaterally)
Respiratory: Clear (anteriorly) and Non-Labored Respirations
GI: Soft, Non Distended, Non Tender, Normal Bowel Sounds and Other (Ag catheter draining clear dark yellow urine)
Neurology: Awake and Alert
Skin: Warm and Other (Chronic venous stasis. Right lower extremity with chronic stasis changes, erythema, warmth up to the lower thigh.)
Labs/Micro/Reports
Lab Data
07/22/25 04:11
07/22/25 04:11
Laboratory Results
07/22/25
04:11
PT 41.5 H
INR 4.40
Microbiology
07/18/25 14:50 Blood/Venous Blood Culture - Preliminary
No Growth in 72 hours- Final report to follow
07/18/25 14:51 Blood/Venous Blood Culture - Preliminary
No Growth in 72 hours- Final report to follow
07/17/25 16:46 Feces/Stool Salmonella/Shigella Culture - Final
No Salmonella, Shigella, Aeromonas or Plesiomonas species
isolated.
07/17/25 16:46 Feces/Stool Campylobacter Culture - Final
No Campylobacter species isolated.
07/17/25 16:46 Feces/Stool Shiga Toxin Test - Final
No E. coli Shiga Toxin 1 or 2 detected.
07/17/25 11:28 Blood/Venous Blood Culture - Preliminary
Group G Streptococcus
07/17/25 11:28 Blood/Venous Gram Stain - Final
07/17/25 11:33 Blood/Venous Blood Culture - Preliminary
Group G Streptococcus
07/17/25 11:33 Blood/Venous Gram Stain - Preliminary
[2025-07-22] MEDS: STERILE WATER FOR INJECTION 20 ML IV (15:26)
[2025-07-22] MEDS: ROCEPHIN 2000 MG IV (15:26)
[2025-07-22] MEDS: TYLENOL 650 MG PO (15:26)
--- NOTE | 2025-07-22 17:30 | PTCARENOTE ---
patient in bed.
AAO x 3 denies pain
V-P 73 +3 edema to b/l le pedal pulses check via doppler
on RA No SOB; No cough
Abdomen soft non-tender
Incontinent of urine. Condom cather # 25 replaced
skin: left LE + swelling . Open area continue to be observed; TX adm per order. b/l heels elevated on air cushion
--- NOTE | 2025-07-22 23:03 | PTCARENOTE ---
Patient assessed. AAOx3 with flat affect. Plan of care for the shift reviewed with the patient. V paced on the monitor with HR in the 70s. Afebrile at this time. Diminished breath sounds. SpO2 at 96% on room air. Wound care to LLE provided. Patient
had a medium sized dark red stool. Heme test positive. BOX CLOSING MACHINE OPERATOR made aware. Patient cleansed and linens changed. PIV. Call hager is within reach.
[2025-07-23] VITALS (38 sets, daily range): BP systolic 90–153; BP diastolic 51–116; BMI 28.8
--- NOTE | 2025-07-23 00:55 | PTCARENOTE ---
Burgundy stool is ongoing per DIRECTOR TRANSLATIONAL. Plan to continue monitoring patient for further bleed throughout shift. Protonix IV 40 mg IV administered.
[2025-07-23] MEDS: TYLENOL 650 MG PO ×2 (03:25→16:49)
[2025-07-23 03:33] LABS: Hematocrit 31.2 % (39.0-52.0); Hemoglobin 10.9 g/dL (13.0-18.0); Mean Corp Hgb Conc. 34.9 g/dL (33.0-37.0); Mean Corpuscular Volume 89.1 fL (80.0-94.0); Nucleated Red Blood Cells % 0 % (-); Platelet Count 95 10^3/uL (130-400); Red Cell Dist. Width 15.1 % (11.5-14.5)
[2025-07-23 03:38] LABS: INR 4.65; PT 43.2 Sec (11.4-14.6)
[2025-07-23 04:16] LABS: Blood Urea Nitrogen 44 mg/dl (9-20); Calcium 7.9 mg/dl (8.4-10.2); Carbon Dioxide 21 mmol/L (22-30); Chloride 106 mmol/L (98-107); Estimated Creatinine Clearance 73 ml/min; Glucose 93 mg/dl (70-99); Potassium 4.4 mmol/L (3.5-5.1); Sodium 132 mmol/L (135-145); eGFR > 60.00
--- NOTE | 2025-07-23 04:28 | W.PN.UPDATE ---
Update Note
Progress Note Update
� Pt had episode of burgundy stools overnight. He does have hx of such from time to time in setting of rectal prolapse. Has had documented burgundy stool here as well 07/19 and 07/21.� May need to Consider GI consult? Vitals stable.�Hemoglobin
stable. INR supratheraputic with coumadin currently on hold with last dose 07/21.
[2025-07-23] MEDS: SYNTHROID 50 MCG PO (05:03)
--- NOTE | 2025-07-23 08:16 | W.PN.ID1 ---
Date of Service
Date of Service: July 23, 2025
Today's Communication
See below.
Assessment / Plan
# Severe LLE cellulitis, worse
# Group G streptococcus bacteremia - cellulitis source
# Fever recurrence
# Leukocytosis recurrence
# TANA resolved
# s/p Septic shock due to cellulitis/bacteremia, weaned off pressor
# Acute on chronic thrombocytopenia
# Elevated LFT's trending down
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
# PPM
- TTE: no gross vegetations; AVR and MV repair with normal gradients
- Repeat blood cx's x 2.
- Check CPK, lactic acid.
- Ordered urgent CT LLE with contrast to evaluate for necrotizing fasciitis
- s/p 3d clindamycin 900mg IV q8 as toxin inhibitor
- DC ceftriaxone (d6)
- Start cefepime, metronidazole, and linezolid.
- Trend temps/wbc,BP
- Prognosis guarded
#Conditions present on admission:
HTN
Atrial fibrillation on Coumadin
Complete heart block s/p PPM
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
AV homograft regurgitation s/p bioprosthetic AVR 2014
Thoracic aortic aneurysm
CAD
Hypothyroidism
Chronic thrombocytopenia
Venous stasis
Overactive bladder
Rectal prolapse
Essential tremor
Chronic constipation
Prostate ca (2002) s/p radical prostatectomy, XRT
Right total knee replacement
Chief Complaint
-: Clinical Sepsis, Cellulitis and Bacteremia
Subjective / Review of Systems
Feels weak.
Vital Signs / Physical Exam
Vital Signs
Vital Signs
Temp Pulse Resp BP Pulse Ox
97.8 F 70 23 97/55 95
07/23/25 07:05 07/23/25 07:00 07/23/25 07:00 07/23/25 04:00 07/23/25 07:00
Physical Exam
Constitutional: Acutely Ill
Eyes: Other (sclera mild icterus)
Cardiovascular: Irregular Rate, S1/S2 and Other (LCW PPM no erythema)
Pulmonary: Clear (anteriorly)
Gastrointestinal: Soft, Non Tender, Non Distended and Normal Bowel Sounds
Extremities: Edema (LLE 3+), Erythema (LLE extending up to medial thigh, warm ), Venous Insufficiency and Other (LLE pretibia and dorsum foot with subcutaneous hemorrhage)
Skin: Jaundice
Neurological: Awake and Other (drowsy)
Objective Data
Lab Data
Lab Results
07/23/25 03:22
07/23/25 03:22
PT 43.2 Sec (11.4-14.6) H 07/23/25 03:22
INR 4.65 07/23/25 03:22
APTT 52.2 Sec (23.4-35.0) H 07/17/25 11:28
Estimated Creat Clear 73 ml/min 07/23/25 03:22
Lactic Acid 2.6 mmol/L (0.7-2.0) H 07/18/25 07:52
Total Bilirubin 4.1 mg/dl (0.2-1.3) H 07/22/25 04:11
AST 60 U/L (17-59) H 07/22/25 04:11
ALT 46 U/L (0-50) 07/22/25 04:11
Alkaline Phosphatase 195 U/L (38-126) H 07/22/25 04:11
Most recent labs reviewed.
Micro Results:
07/18/25 14:50 Blood Culture - Preliminary
Blood/Venous No Growth in 4 days- Final report to follow
07/18/25 14:51 Blood Culture - Preliminary
Blood/Venous No Growth in 4 days- Final report to follow
07/17/25 16:46 Salmonella/Shigella Culture - Final
Feces/Stool No Salmonella, Shigella, Aeromonas or Plesiomonas species
isolated.
Campylobacter Culture - Final
No Campylobacter species isolated.
Shiga Toxin Test - Final
No E. coli Shiga Toxin 1 or 2 detected.
07/17/25 11:28 Blood Culture - Preliminary
Blood/Venous Group G Streptococcus
Gram Stain - Final
07/17/25 11:33 Blood Culture - Preliminary
Blood/Venous Group G Streptococcus
Gram Stain - Preliminary
07/17/25 11:33 Urine Culture - Final
Urine
07/17/25 16:46 C. difficile GDH Antigen & Toxins - Final
Feces/Stool Negative for toxigenic C.difficile
07/17/25 11:28 Influenza Types A & B ([facility]) - Final
Nasal Swab Negative for Influenza A & B, NAAT
Negative results must be combined with clinical observations
and patient history.
Nucleic Acid Amplification test (NAAT)performed on the
[facility] platform.
07/17/25 CXR: Cardiomegaly. Pulmonary vascularity at least top normal. No focal parenchymal opacification to suggest pneumonia.
07/17/25 CT a/p: Probable complex cyst of the right kidney. Further evaluation with a CT of the kidneys pre- and post-IV contrast or MRI examination recommended. Malignancy not excluded. Increased complexity.
Bilateral subcentimeter hyperdense renal lesions likely benign proteinaceous cysts. New
Tiny nonobstructing bilateral renal stones. New.
Findings suggestive of fecal impaction. Moderate rectal wall thickening. Stercoral colitis cannot excluded. Progressed.
Mild diffuse bladder wall thickening. This can be seen with cystitis or bladder outlet obstruction. Stable
Care Review
Plan reviewed with: Nurse and Physician (Drs. Kent and Ronn)
[2025-07-23] MEDS: ZYVOX 600 MG PO ×2 (09:12→21:08)
[2025-07-23] MEDS: METAMUCIL, KONSYL 1 PACKET PO (09:15)
[2025-07-23] MEDS: MAXIPIME 1000 MG IV ×3 (09:15→21:09)
[2025-07-23] MEDS: FLAGYL 500 MG PO ×2 (09:16→16:50)
[2025-07-23] MEDS: VISBIOME 2 CAP PO (09:16)
[2025-07-23] MEDS: STERILE WATER FOR INJECTION 10 ML IV ×3 (09:16→21:09)
[2025-07-23] MEDS: HYDROPHOR 1 APPLIC TOPICAL (09:17)
[2025-07-23 10:35] LABS: Hematocrit 32.7 % (39.0-52.0); Hemoglobin 11.6 g/dL (13.0-18.0); Mean Corp Hgb Conc. 35.5 g/dL (33.0-37.0); Mean Corpuscular Volume 89.6 fL (80.0-94.0); Nucleated Red Blood Cells % 0 % (-); Platelet Count 107 10^3/uL (130-400); Red Cell Dist. Width 15.3 % (11.5-14.5)
--- NOTE | 2025-07-23 13:25 | CON.GI ---
Consultation
-
Date/Time Consultation Requested: 07/23/2025
Date/Time Consultation Performed: 07/23/2025
Requesting Provider: hospitalist
Performing Provider: Daniel RUDD
Reason for Consultation: hematochezia
Medical History
Chief Complaint / HPI
Chief Complaint: Fever and weakness
History of Present Illness:
80-year-old male with extensive past medical history atrial fibrillation on Coumadin, complete heart block s/p pacemaker , mitral valve repair in 2000 (secondary to bacterial endocarditis), aortic valve replacement with bioprosthetic status post
aortic root dissection 2014, thoracic aortic aneurysm, hypertension, constipation, essential tremors, history of prostate cancer 2002 status post radical prostatectomy and radiation, history of rectal prolapse admitted with fever/generalized
weakness 07/17/2025. Patient is currently being treated in ICU for septic shock secondary to Streptococcus bacteremia and left lower extremity cellulitis. GI was consulted today as he started having burgundy stool last night. He had a another BM
this a.m. as well. Denies any abdominal pain. As per patient he had a colonoscopy earlier this year at outside facility and was told he had some ulceration in the rectum and was advised to take stool softener and was given enema ( he is not sure
whether it was a laxative or mesalamine).
Past Medical History
Past Medical History: Other (HTN Atrial fibrillation on Coumadin Complete heart block s/p PPM hx Group G strep endocarditis s/p MV repair and AV homograft 12/2000 AV homograft regurgitation s/p bioprosthetic AVR 2014 Thoracic aortic aneurysm CAD
Hypothyroidism Chronic thrombocytopenia Venous stasis Overactive bladder Rectal pro)
Allergies / Home Medications
Allergy/AdvReac Type Severity Reaction Status Date / Time
bromide salts ([place]) Allergy Rash Verified 09/28/24 11:54
�Medication �Instructions �Recorded
pravastatin 40 mg tablet 40 mg PO HS High cholesterol 08/01/08
levothyroxine 50 mcg tablet 50 mcg PO DAILY Thyroid 06/18/21
solifenacin 10 mg tablet (Vesicare) 10 mg PO HS OVERACTIVE BLADDER 06/18/21
digoxin 125 mcg (0.125 mg) tablet 0.125 mg PO DAILY Heart 05/19/23
disease/condition
ibuprofen 200 mg tablet (Advil) 400 mg PO Q8HPRN PRN mild pain 07/17/25
warfarin 5 mg tablet 7.5 mg PO TUTH@1900 Blood Clot 07/17/25
Prevention/Tx
warfarin 5 mg tablet (Jantoven) 5 mg PO SUMOWEFRSA@1900 Blood Clot 07/17/25
Prevention/Tx
atenolol 25 mg tablet 25 mg PO HS Blood Pressure 07/18/25
methenamine hippurate 1 gram tablet 1 g PO BID prophylaxis 07/18/25
Review of Systems
Vital Signs
Temp Pulse Resp BP Pulse Ox
97.5 F 74 19 118/67 97
07/23/25 13:21 07/23/25 13:21 07/23/25 13:21 07/23/25 13:21 07/23/25 13:21
Physical Exam
Exam
General: Comfortable
Respiratory: Clear
GI: Soft, Non Tender and Non Distended
Neuro: AO x 3
Results
WBC 16.0 10^3/uL (4.8-10.8) H 07/23/25 10:23
Hgb 11.6 g/dL (13.0-18.0) L 07/23/25 10:23
Hct 32.7 % (39.0-52.0) L 07/23/25 10:23
MCV 89.6 fL (80.0-94.0) 07/23/25 10:23
Plt Count 107 10^3/uL (130-400) L 07/23/25 10:23
Absolute Neuts (auto) 13.1 10^3/uL (1.4-6.5) H 07/23/25 10:23
PT 43.2 Sec (11.4-14.6) H 07/23/25 03:22
INR 4.65 07/23/25 03:22
APTT 52.2 Sec (23.4-35.0) H 07/17/25 11:28
Sodium 132 mmol/L (135-145) L 07/23/25 03:22
Potassium 4.4 mmol/L (3.5-5.1) 07/23/25 03:22
Chloride 106 mmol/L (98-107) 07/23/25 03:22
Carbon Dioxide 21 mmol/L (22-30) L 07/23/25 03:22
BUN 44 mg/dl (9-20) H 07/23/25 03:22
Creatinine 1.0 mg/dL (0.7-1.3) 07/23/25 03:22
Calcium 7.9 mg/dl (8.4-10.2) L 07/23/25 03:22
Total Bilirubin 4.1 mg/dl (0.2-1.3) H 07/22/25 04:11
AST 60 U/L (17-59) H 07/22/25 04:11
ALT 46 U/L (0-50) 07/22/25 04:11
Alkaline Phosphatase 195 U/L (38-126) H 07/22/25 04:11
Diagnostic Image Results:
Prior GI Procedures:
EGD: no records
Colonoscopy: as per patient early this year at outside facility . no records available
Assessment / Plan
-
80-year-old male with extensive past medical history atrial fibrillation on Coumadin, complete heart block s/p pacemaker , mitral valve repair in 2000 (secondary to bacterial endocarditis), aortic valve replacement with bioprosthetic status post
aortic root dissection 2014, thoracic aortic aneurysm, hypertension, constipation, essential tremors, history of prostate cancer 2003 status post radical prostatectomy and radiation, history of rectal prolapse admitted with fever/generalized
weakness 07/17/2025. Patient is currently being treated in ICU for septic shock secondary to Streptococcus bacteremia and left lower extremity cellulitis. GI was consulted today as he started having burgundy stool last night. He had a another BM
this a.m. as well. Denies any abdominal pain. As per patient he had a colonoscopy earlier this year at outside facility and was told he had some ulceration in the rectum and was advised to take stool softener and was given enema ( he is not sure
whether it was a laxative or mesalamine).
--Hematochezia. Etiology multifactorial -possible ischemic colitis in the setting of septic shock /background of supratherapeutic INR, thrombocytopenia
-- Septic shock
-- Supratherapeutic INR. INR this a.m. 4.65
-- History of rectal prolapse/likely stercoral coral ulcer in the rectum
-- Elevated liver test-possible multifactorial with septic shock.CT abdomen/pelvis 07/17/2025 without contrast liver/gallbladder normal
plan
Full liquid diet
Continue monitor H&H
If significant bleeding persist medical team/ ICU team to consider reversing INR
No acute GI intervention at this point
Hemodynamic stability as medically
Management of sepsis as per medical team/ID
trend LFT
Will obtain prior GI records -last colonoscopy records
Total Time Spent with Patient (in minutes): 55
-
-
Thank you for consultation and allowing me to participate in the patient's care. Please call the director of valuation GI physician during the after hours with any questions or concerns.
--- NOTE | 2025-07-23 13:46 | PTOTSP ---
Speech Pathology
Clinical Swallow Evaluation
80M with admission for sepsis, cellulitis, and UTI p/w a functional oropharyngeal swallow. No overt s/s of aspiration observed this date. Did complain of oral soreness and xerostomia, alerted RN who will monitor.
Recommend:
1. Regular textures, thin liquids when cleared to do so (currently on full liquids)
2. Meds as best tolerated
3. Safe swallowing strategies: small bites, single sips, utilize thin liquid was to help clear oral residue
4. Aspiration precautions
5. Speech to follow, likely briefly, to ensure tolerance of current diet level
--- NOTE | 2025-07-23 14:14 | CM ---
Discharge POC: SNF preferences as follows: In order - [facility]. Referrals placed.
--- NOTE | 2025-07-23 14:39 | W.PN.HOSP.TC ---
Today's Communication/Plan
-
Change IV antibiotics to broader coverage. CT scan of the leg.
Assessment / Plan
Assessment / Plan
Physical exam:
General: Acutely ill. Toxic appearance
HEENT: Normocephalic, Atraumatic and Moist Mucous Membranes
Respiratory: Clear to Auscultation; Negative Wheezes, Rales or Rhonchi
Cardiac: Regular Rhythm and S1/S2. Pacemaker no erythema
GI: Soft, Nontender and Nondistended
Musculoskeletal: Skin findings as below. No joint effusions. No Clubbing, No Cyanosis
Skin: Left lower extremity erythema edema and blisters and warmth. Erythema is progressing proximally up to the thighs. Edema and tenderness is also worse.
Neuro: Awake, Alert and Oriented, no gross neurological deficit but generalized weakness.
Psych: Normal judgment and insight
A/P:
Septic shock due to Streptococcus G bacteremia and left lower extremity cellulitis:
Continue IV Rocephin 2 g daily and clindamycin
Continue pressors weaning down as much as possible and continue midodrine
ID consult appreciated
Blood cultures positive group G Streptococcus on 07/17
Repeat blood cultures 07/18 and sterile
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
Lactate fluctuating up and down
No DVT by Doppler on LLE
Echocardiogram normal EF but right ventricle overload and no gross vegetations
Updated daughter Ariadne watt
07/21:
Continue antibiotics
Albumin bolus and wean pressors
07/22:
Continue antibiotics, ceftriaxone
Off clindamycin
INR supratherapeutic today so hold warfarin
07/23:
Change antibiotics to IV cefepime today 1 g every 6 hours and Zyvox 600 mg orally twice a day and metronidazole 500 mg orally every 8 hours.
Repeat blood cultures today and lactic acid.
Discussed with ID who ordered the CT as below.
Plan for CT with contrast of the left lower extremity today
Discussed with manager organizational and he is aware of CT pending but right now patient hemodynamically stable so we will ask him to reevaluate if he becomes hypotensive or worsening status.
Placed on Protonix 40 mg twice a day and changed to NPO status and GI consulted.
GI evaluated the patient and recommended to reverse INR and will change diet to full liquid diet.
INR 4.65 today
FFP's ordered and follow-up INR and repeat CBC.
Discussed with and daughter at bedside at length and they would like to continue medical treatment and further recommendations based on current workup and clinical course.
Volume overload:
IV Lasix given prior
Hypokalemia:
Replete and trend
TANA:
Improvement noted
Likely ATN related to sepsis
Creatinine 1.0 today which is his baseline
IV fluids as needed
Avoid nephrotoxic
Monitor renal function
Metabolic acidosis:
Monitor acidosis closely
Rhabdomyolysis:
Mild
CPK trending down
Hypothyroidism:
Continue levothyroxine 50 mcg p.o. daily
Permanent atrial fibrillation:
Holding rate control as, atenolol and digoxin
Restart anticoagulation, warfarin
Thrombocytopenia:
Chronic and worsening due to sepsis
Transaminitis:
Likely due to sepsis
Continue to trend
Coagulopathy with supratherapeutic INR:
Increase INR due to sepsis and meds
Hold warfarin-INR 4.65 today
There is signs of bleeding today on 07/23 so FFP is ordered to reverse INR and on PPI. GI consulted
Other medical problems:
Hypertension
Hyperlipidemia
Chronic venous stasis changes
Overreactive bladder
Rectal prolapse
Essential tremor
Constipation
Prostate cancer status post radical prostatectomy and radiation
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
History of thoracic aortic aneurysm
Complete heart block status post pacemaker
DVT prophylaxis:
On warfarin
Total time spent on today's encounter was 62 minutes which included time spent in counseling the patient/family regarding diagnosis and treatment plan as listed above, goals of care, and symptom management. Case was discussed with nursing staff,
specialists, and care coordinators/case management. All labs and imaging personally reviewed by me. Remainder the time spent in detailed review of previous records, lab data, imaging, and other medical provider documentation.
Anticipated Discharge: > 48 hours
Subjective/Interval History
-
Date of Service: July 23, 2025
Patient feels weak overall. Still having fevers Tmax 101.5 Fahrenheit earlier today. Erythema on his left lower extremity spreading up and more swollen. He had black/burgundy stools today.
Objective Data
-
Labs:
Laboratory Results
07/23/25 07/23/25
03:22 10:23
WBC 14.5 H 16.0 H
Hgb 10.9 L 11.6 L
Hct 31.2 L 32.7 L
Plt Count 95 L D 107 L
PT 43.2 H
INR 4.65
Sodium 132 L
Potassium 4.4
Chloride 106
Carbon Dioxide 21 L
BUN 44 H
Creatinine 1.0
Glucose 93
Calcium 7.9 L
Vital Signs:
Vital Signs
Temp Pulse Resp BP Pulse Ox
99.6 F 77 22 110/66 97
07/23/25 14:33 07/23/25 14:33 07/23/25 14:33 07/23/25 14:33 07/23/25 13:21
I&O
07/22/25 07/23/25 07/24/25
06:59 06:59 06:59
Intake Total 2092.5 / 2092.5 600 / 600 457 / 457
Output Total 1150 / 1150 200 / 200
Balance 942.5 / 942.5 600 / 600 257 / 257
--- NOTE | 2025-07-23 16:59 | PTCARENOTE ---
Returned from CT left LE; results pending . Results pending. FFP 2 units out of 4 for elevated INR administered. Repeat INR send, results pending. left Le swollen +4 edema. Bright red from ankle upper thigh. pedal pulses present via dopler.
Draining clear drainage. . TX done per order, wrapped with GWEN wrap. elevated on pillow, heel off load on air cushion. oral temp 102. ... Rectal burgundy output noted (see records. Increase shivering noted. ABT adm per order . pt in bed. Urine dark
morena. Incontinent of urine.
patient in bed. HOB elevated call hager within reach
[2025-07-23 17:16] LABS: INR 3.16; PT 32.3 Sec (11.4-14.6)
--- NOTE | 2025-07-23 18:25 | PTCARENOTE ---
INR resulted 3.16. Per Dr More - FFP remaining 2 unit to be administered
[2025-07-23] MEDS: LASIX 40 MG IV (19:11)
[2025-07-23] MEDS: NSS (PRESERVATIVE FREE) 10 ML IV ×2 (21:09)
[2025-07-23] MEDS: PROTONIX IV 40 MG IV ×2 (21:09)
--- NOTE | 2025-07-23 22:41 | PTCARENOTE ---
Patient aao x3 since start of shift, affect flat, denies pain but verbalizes discomfort to right foot at start of shift. Akbar wrap loosened, patient verbalizes improved comfort. Patient completed 3rd FFP prior to start of shift, 4th bag FFP started
and completed earlier this shift. Patient tolerated well. Remains 100% vpaced on monitor, positive pp with use of doppler, weak radial pulses. Patient continues with edema throughout, +3 to LLE, +2 RLE, +2-3 to LUE. Lung sounds diminished throughout
all lobes, pox 95% on ra. Patient incontinent of large amount of urine x2. Hygiene provided and barrier ointment applied to sacrum and buttocks d/to MASD. Call hager within reach, will continue to monitor patient closely.
[2025-07-24] VITALS (27 sets, daily range): BP systolic 86–122; BP diastolic 40–73; PULSE 72; BMI 28.7
[2025-07-24] MEDS: FLAGYL 500 MG PO ×3 (00:14→17:52)
[2025-07-24] MEDS: STERILE WATER FOR INJECTION 10 ML IV ×4 (04:54→21:04)
[2025-07-24] MEDS: SYNTHROID 50 MCG PO (04:54)
[2025-07-24] MEDS: MAXIPIME 1000 MG IV ×4 (04:54→21:03)
[2025-07-24 05:35] LABS: Hematocrit 29.6 % (39.0-52.0); Hemoglobin 10.4 g/dL (13.0-18.0); Mean Corp Hgb Conc. 35.1 g/dL (33.0-37.0); Mean Corpuscular Volume 90.5 fL (80.0-94.0); Nucleated Red Blood Cells % 0 % (-); Platelet Count 131 10^3/uL (130-400); Red Cell Dist. Width 15.2 % (11.5-14.5)
[2025-07-24 05:39] LABS: INR 2.59; PT 27.8 Sec (11.4-14.6)
[2025-07-24 05:51] LABS: ALT (SGPT) 36 U/L (0-50); AST (SGOT) 44 U/L (17-59); Albumin 2.8 g/dl (3.5-5.0); Alkaline Phosphatase 196 U/L (38-126); Blood Urea Nitrogen 38 mg/dl (9-20); Calcium 8.0 mg/dl (8.4-10.2); Carbon Dioxide 26 mmol/L (22-30); Chloride 104 mmol/L (98-107); Estimated Creatinine Clearance 81 ml/min; Glucose 81 mg/dl (70-99); Potassium 3.9 mmol/L (3.5-5.1); Sodium 134 mmol/L (135-145); Total Protein 6.5 g/dl (6.3-8.2); eGFR > 60.00
[2025-07-24] MEDS: HYDROPHOR 1 APPLIC TOPICAL (09:16)
[2025-07-24] MEDS: VISBIOME 2 CAP PO (09:17)
[2025-07-24] MEDS: ZYVOX 600 MG PO ×2 (09:17→19:14)
[2025-07-24] MEDS: NSS (PRESERVATIVE FREE) 10 ML IV (09:17)
[2025-07-24] MEDS: PROTONIX IV 40 MG IV (09:17)
[2025-07-24] MEDS: METAMUCIL, KONSYL 1 PACKET PO (09:18)
--- NOTE | 2025-07-24 09:55 | W.PN.HOSP.TC ---
Today's Communication/Plan
-
Antibiotics
Daily dressing changes to left lower extremity.
Advance diet.
Resume Coumadin.
Follow INR.
PT assessment
Assessment / Plan
Assessment / Plan
Impression:
Severe sepsis with septic shock requiring vasopressors secondary to left lower extremity cellulitis with group G Streptococcus bacteria
Severe left lower extremity cellulitis complicated with chronic venous stasis/dermatitis
Lactic acidosis
Nontraumatic rhabdomyolysis.
TANA
Abnormal LFTs in the settings of septic shock (hyperbilirubinemia/transaminitis)
Hematochezia suspect stercoral colitis and secondary to anticoagulation.
Hypokalemia
Conditions prior to admission:
Chronic atrial fibrillation baseline anticoagulation with warfarin.
History of AV block status post pacemaker
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
History of aortic valve replacement, bioprosthetic complicated with aortic root dissection 2014
Thoracic aortic aneurysm.
Essential hypertension
Essential tremor.
Prostate carcinoma status post radical prostatectomy and radiation 2002.
Hypothyroidism.
Dyslipidemia.
Bilateral hip replacement
Plan
Severe sepsis with septic shock requiring vasopressors secondary to the left lower extremity cellulitis with group G Streptococcus bacteremia.
Imaging with CT scan and clinically ruled out necrotizing fasciitis.
Echocardiogram with no evidence of endocarditis
Bacteremia cleared with repeated blood cultures negative to date.
Afebrile with improved hemodynamics and trending down WBC, resolved lactic acidosis.
Antibiotic therapy tailored to cefepime, Zyvox, metronidazole.
Continue dressing changes.
Follow-up closely including temperature curve, WBC
Hematochezia
CT scan on admission 07/17 with evidence of stercoral colitis
Stable hemoglobin indicative of chronic anemia.
Advance to low residue diet
Bowel regimen including MiraLAX.
As there is no evidence of upper GI source transition to oral PPI for prophylaxis.
GI following.
LFTs trending down.
Acute kidney injury
Improved with IV hydration and normalized hemodynamics.
Monitor closely
Monitor for retention
Avoid nephrotoxins including NSAIDs
Over Levophed
Transition to midodrine 10 mg every 8. Monitor BP closely.
Chronic atrial fibrillation, AV block status post pacemaker.
Echo 07/18
1. Low normal left ventricular systolic function. LVEF 52%.
2. Right ventricle is severely dilated with moderately reduced systolic function and septal flattening consistent with RV volume overload.
3. Severe biatrial enlargement.
4. S/p AVR with normal gradients.
5. S/p mitral valve repair with normal gradients and mild residual MR.
6. Dilated aortic root (4.2 cm).
7. Compared to prior echocardiogram, TR has improved from moderate to severe. Otherwise unchanged.
Preadmission regimen including atenolol and digoxin. Currently off.
Continue midodrine avoiding hypotension
Anticoagulation/Coumadin induced coagulopathy: INR down to 2. Resume Coumadin and follow INR daily while on antibiotics.
Concern for volume overload.
Echo as above
Lasix provided on 07/23
Not on diuretics MICA PASTER per
Monitor volume status closely.
Hypokalemia with repleted potassium.
Hypothyroidism on replacement
Dyslipidemia. Reintroduce statin once stable LFTs.
Chronic thrombocytopenia.
Anticipated Discharge: > 48 hours
Subjective/Interval History
-
Date of Service: July 24, 2025
Objective Data
-
Labs:
Laboratory Results
07/24/25
05:05
WBC 14.3 H
Hgb 10.4 L
Hct 29.6 L
Plt Count 131 D
PT 27.8 H
INR 2.59
Sodium 134 L
Potassium 3.9
Chloride 104
Carbon Dioxide 26
BUN 38 H
Creatinine 0.9
Glucose 81
Calcium 8.0 L
Total Bilirubin 4.9 H
AST 44
ALT 36
Alkaline Phosphatase 196 H
Vital Signs:
Vital Signs
Temp Pulse Resp BP Pulse Ox
98.3 F 70 20 91/52 95
07/24/25 07:01 07/24/25 06:00 07/24/25 06:00 07/24/25 09:17 07/24/25 06:00
I&O
07/23/25 07/24/25 07/25/25
06:59 06:59 06:59
Intake Total 600 / 600 3298 / 3298
Output Total 1300 / 1300
Balance 600 / 600 1997
Physical Exam
-
General: Well Developed and No Apparent Distress
HEENT: Normocephalic, Atraumatic and Moist Mucous Membranes
Respiratory: Clear to Auscultation
Cardiac: Regular Rhythm, S1/S2 and Murmur; Negative Rub or Gallop
GI: Soft, Nontender, Nondistended and Normal Bowel Sounds; Negative Organomegaly
Rectal: Deferred by Provider
Musculoskeletal: No Clubbing, No Cyanosis and Other (Bilateral 2+ lower extremity pitting edema with venous static dermatitis. Left lower extremity with erythema and induration from the ankle to the knee. Dopplerable pedal pulses bilaterally.)
Skin: Negative Rash
Neuro: Nonfocal/Grossly Intact
--- NOTE | 2025-07-24 09:56 | PTCARENOTE ---
pt aaox3. states pain in legs feels better. left leg dressing changed.
--- NOTE | 2025-07-24 10:14 | W.PN.ID1 ---
Date of Service
Date of Service: July 24, 2025
Today's Communication
Continue abx's.
Assessment / Plan
# Fever recurrence, improved
# Leukocytosis recurrence, improved
# Severe LLE cellulitis
# Group G streptococcus bacteremia - cellulitis source
# TANA resolved
# s/p Septic shock due to cellulitis/bacteremia, weaned off pressor
# Acute on chronic thrombocytopenia
# Elevated LFT's trending down
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
# PPM
- TTE: no gross vegetations; AVR and MV repair with normal gradients
- Repeat blood cx's x 2 pending
- CPK normal
- 07/23 CT LLE with contrast: no abscess
- s/p 3d clindamycin 900mg IV q8 as toxin inhibitor
- s/p ceftriaxone (5d)
- Continue IV cefepime, po metronidazole, and po linezolid (d2)
- Trend temps/wbc, BP
- Prognosis guarded. Pt will talk to about goals of care. At this time, he wants to wait and see if he improves.
#Conditions present on admission:
HTN
Atrial fibrillation on Coumadin
Complete heart block s/p PPM
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
AV homograft regurgitation s/p bioprosthetic AVR 2014
Thoracic aortic aneurysm
CAD
Hypothyroidism
Chronic thrombocytopenia
Venous stasis
Overactive bladder
Rectal prolapse
Essential tremor
Chronic constipation
Prostate ca (2002) s/p radical prostatectomy, XRT
Right total knee replacement
Chief Complaint
-: Clinical Sepsis, Cellulitis and Bacteremia
Subjective / Review of Systems
Feeling better.
Vital Signs / Physical Exam
Vital Signs
Vital Signs
Temp Pulse Resp BP Pulse Ox
98.3 F 70 20 91/52 95
07/24/25 07:01 07/24/25 06:00 07/24/25 06:00 07/24/25 09:17 07/24/25 06:00
Selected Entries
07/23/25
16:59
Temp 101.2 F H
Physical Exam
Constitutional: Acutely Ill and Chronically Ill
Eyes: Other (sclera icteric)
Cardiovascular: Regular Rate, S1/S2 and Other (PPM no erythema)
Pulmonary: Other (decreased BS)
Gastrointestinal: Soft, Non Tender and Normal Bowel Sounds
Genito-Urinary: Negative CVA Tenderness
Extremities: Edema (anasarca) and Erythema (LLE erythema to thigh stable without progression)
Neurological: AO x 3
Objective Data
Lab Data
Lab Results
07/24/25 05:05
07/24/25 05:05
PT 27.8 Sec (11.4-14.6) H 07/24/25 05:05
INR 2.59 07/24/25 05:05
APTT 52.2 Sec (23.4-35.0) H 07/17/25 11:28
Estimated Creat Clear 81 ml/min 07/24/25 05:05
Lactic Acid 1.2 mmol/L (0.7-2.0) 07/23/25 09:58
Total Bilirubin 4.9 mg/dl (0.2-1.3) H 07/24/25 05:05
AST 44 U/L (17-59) 07/24/25 05:05
ALT 36 U/L (0-50) 07/24/25 05:05
Alkaline Phosphatase 196 U/L (38-126) H 07/24/25 05:05
Most recent labs reviewed.
Micro Results:
07/18/25 14:51 Blood Culture - Final
Blood/Venous No Growth - Final Report
07/18/25 14:50 Blood Culture - Final
Blood/Venous No Growth - Final Report
07/23/25 10:08 Blood Culture - Pending
Blood/Venous
07/23/25 10:08 Blood Culture - Pending
Blood/Venous
07/17/25 16:46 Salmonella/Shigella Culture - Final
Feces/Stool No Salmonella, Shigella, Aeromonas or Plesiomonas species
isolated.
Campylobacter Culture - Final
No Campylobacter species isolated.
Shiga Toxin Test - Final
No E. coli Shiga Toxin 1 or 2 detected.
07/17/25 11:28 Blood Culture - Preliminary
Blood/Venous Group G Streptococcus
Gram Stain - Final
07/17/25 11:33 Blood Culture - Preliminary
Blood/Venous Group G Streptococcus
Gram Stain - Preliminary
07/17/25 11:33 Urine Culture - Final
Urine
07/17/25 16:46 C. difficile GDH Antigen & Toxins - Final
Feces/Stool Negative for toxigenic C.difficile
07/17/25 11:28 Influenza Types A & B ([facility]RIS) - Final
Nasal Swab Negative for Influenza A & B, NAAT
Negative results must be combined with clinical observations
and patient history.
Nucleic Acid Amplification test (NAAT)performed on the
[employer] platform.
07/17/25 CXR: Cardiomegaly. Pulmonary vascularity at least top normal. No focal parenchymal opacification to suggest pneumonia.
07/17/25 CT a/p: Probable complex cyst of the right kidney. Further evaluation with a CT of the kidneys pre- and post-IV contrast or MRI examination recommended. Malignancy not excluded. Increased complexity.
Bilateral subcentimeter hyperdense renal lesions likely benign proteinaceous cysts. New
Tiny nonobstructing bilateral renal stones. New.
Findings suggestive of fecal impaction. Moderate rectal wall thickening. Stercoral colitis cannot excluded. Progressed.
Mild diffuse bladder wall thickening. This can be seen with cystitis or bladder outlet obstruction. Stable
[2025-07-24] MEDS: MIRALAX 17 GRAMS PO (11:16)
--- NOTE | 2025-07-24 13:11 | PN.CDI ---
CDI
- -
CDI:
Physician Documentation Request
Admit Date: 07/17/25 13:06
Dear Doctor,
Please review the following and provide your response in the progress notes.
Clinical Indicators:
Pt admitted with sepsis shock / cellulitis of RLE
Documented in youth leader progress note 07/20, ' Judicious use of fluids given right ventricular failure as seen on ECHO and hx HFpEF...Heart failure with minimally reduced ejection fraction/chronic RV dilatation/status post AVR. Status post
mitral valve repair with mild residual MR.Did receive 1 dose of diuretics given increased proBNP of 5000...'
ECHO 07/18 LVEF 52%.
Progress note 07/24, ' Concern for volume overload...'
Per MAR pt also get IV Lasix 40 mg on 07/23
Please provide a diagnosis for thee above findings /use of IV Lasix :
Acute on Chronic Diastolic CHF
Chronic Diastolic CHF only
Other ( please specify)
Use of terms such as suspected, likely, concern for, or probable (associated with a specific diagnosis that is being evaluated, monitored, or treated as if it exists) are acceptable and can be coded in the inpatient setting, when documented at the
time of discharge.
Thank you,
Sydnie Portillo RN
CDI Specialist
[place] [facility]
Please use your independent medical judgment in providing your response.
--- NOTE | 2025-07-24 13:19 | PN.CDI ---
CDI
- -
CDI:
Physician Documentation Request
Admit Date: 07/17/25 13:06
Dear Doctor Disha,
Please review the following and provide your response in the progress notes.
Clinical Indicators:
Pt admitted with sepsis shock / cellulitis of RLE
Sodium levels are as below/ Pt did get IVFs
Laboratory Tests
07/17/25 07/17/25 07/19/25
11:28 20:59 03:10
Sodium 134 L 133 L 134 L
07/22/25 07/23/25 07/24/25
04:11 03:22 05:05
Sodium 134 L 132 L 134 L
Based on the above, could you clarify in the progress notes, the appropriate diagnosis, if significant, that supports the above abnormalities and additional evaluation, monitoring and/or treatment rendered:
Hyponatremia
Abnormal lab value
Other ( please specify)
Use of terms such as suspected, likely, concern for, or probable (associated with a specific diagnosis that is being evaluated, monitored, or treated as if it exists) are acceptable and can be coded in the inpatient setting, when documented at the
time of discharge.
Thank you,
Sydnie Portillo RN
CDI Specialist
[place] [employer]
Please use your independent medical judgment in providing your response.
--- NOTE | 2025-07-24 13:59 | WOUNDNOTE ---
WON RN NOTE: Followed up today with assist of nurse. R leg healed, dry skin, moisturized legs with mineral oil. L leg remains swollen, distal medial lower leg with 2 small draining raised ulcers. When cleaning proximal wound, able to express clot of
blood then moderate sanguineous drainage, stopped with pressure. Distal L lower medial leg with small opening, moderate amt of pus expressed when cleaning. Swab culture done, nurse Yamilet aware and will send to lab. Showed Dr. Kent pictures of L leg,
suspected small abscesses, approved wound culture and recommended ultrasound. Dry dressing applied with adaptic, alginate, abd pad and kerlix. Akbar wrap knee high applied. Turned patient with assist of nurse Yamilet, patient very weak but attempts to
assist. Incontinent of large amt of soft stool and urine, skin care given. L upper buttock with dark maroon skin, evolving DTI, foams applied. Heel foams removed and heels remain intact. Called Bed tech Rohan for a [facility] air bed, nurse aware to
switch bed. Nurse reports he was on an [employer]a bed and switched to Accumax this morning. Has gotten out of bed to chair but reports is uncomfortable. Appetite is fair, encouraged protein in diet. Repositioned patient onto R semi side lying position.
Air cushion on pillows under calves. Leg elevation. Pressure ulcer prevention measures reviewed with patient, turning schedule maintained. Will update wound care orders, care plan and follow as needed.
--- NOTE | 2025-07-24 14:09 | W.PN.GI.CBS2 ---
Today's Communication / Plan
-
Monitor H&H/INR
Bowel regimen
Assessment / Plan
-
80-year-old male with extensive past medical history atrial fibrillation on Coumadin, complete heart block s/p pacemaker , mitral valve repair in 2000 (secondary to bacterial endocarditis), aortic valve replacement with bioprosthetic status post
aortic root dissection 2014, thoracic aortic aneurysm, hypertension, constipation, essential tremors, history of prostate cancer 2002 status post radical prostatectomy and radiation, history of rectal prolapse admitted with fever/generalized
weakness 07/17/2025. Patient is currently being treated in ICU for septic shock secondary to Streptococcus bacteremia and left lower extremity cellulitis. GI was consulted today as he started having burgundy stool last night. He had a another BM
this a.m. as well. Denies any abdominal pain. As per patient he had a colonoscopy earlier this year at outside facility and was told he had some ulceration in the rectum and was advised to take stool softener and was given enema ( he is not sure
whether it was a laxative or mesalamine).
--Hematochezia. Etiology multifactorial -possible ischemic colitis in the setting of septic shock /background of supratherapeutic INR, thrombocytopenia
-- Septic shock
-- Supratherapeutic INR. INR was 4.65 07/23. Given FFP yesterday. INR this a.m. 2.59
-- History of rectal prolapse/likely stercoral coral ulcer in the rectum
-- Elevated liver test-possible multifactorial with septic shock.CT abdomen/pelvis 07/17/2025 without contrast liver/gallbladder normal
plan
No further bleeding. Hb relatively stable. INR close to therapeutic range
Okay to advance diet
Continue monitor H&H
No acute GI intervention at this point
Hemodynamic stability as medically
Management of sepsis as per medical team/ID
Daily bowel regimen with history of stercoral rectall ulcer
No further recommendation. Will sign off
Total Time Spent with Patient (in minutes): 35
Subjective
Subjective
Date of Service: July 24, 2025
No further rectal bleeding today. . FFP given yesterday . INR this a.m. 2.59
Objective
Data Reviewed
Laboratory Data:
Laboratory Results
07/24/25 05:05
07/24/25 05:05
Laboratory Results
PT 27.8 Sec (11.4-14.6) H 07/24/25 05:05
INR 2.59 07/24/25 05:05
APTT 52.2 Sec (23.4-35.0) H 07/17/25 11:28
Phosphorus 4.8 mg/dl (2.5-4.5) H 07/18/25 03:32
Magnesium 1.9 mg/dl (1.6-2.3) 07/19/25 03:10
Total Bilirubin 4.9 mg/dl (0.2-1.3) H 07/24/25 05:05
AST 44 U/L (17-59) 07/24/25 05:05
ALT 36 U/L (0-50) 07/24/25 05:05
Alkaline Phosphatase 196 U/L (38-126) H 07/24/25 05:05
Vital Signs and I&O:
Vital Signs
Temp Pulse Resp BP Pulse Ox
99.1 F 74 25 89/52 96
07/24/25 11:17 07/24/25 12:00 07/24/25 12:00 07/24/25 12:00 07/24/25 09:00
I&O
07/23/25 07/24/25 07/25/25
06:59 06:59 06:59
Intake Total 600 / 600 3298 / 3298 600 / 600
Output Total 1300 / 1300
Balance 600 / 600 1997 600 / 600
Physical Exam
Physical Exam
GI: Soft, Non Distended and Non Tender
--- NOTE | 2025-07-24 14:34 | CM ---
CM reviewed chart- ADC>48 hours
ID following for abx- pt remains in IV cefepime and PO metronidazole and linezolid
Prior referrals sent to SNFs
[facility] has accepted pending bed availability
[facility] declined due to bed availability
Referrals remains pending at [facility]
Pt will require [facility] auth for SNF
Discharge Disposition- SNF pending auth
[2025-07-24] MEDS: COUMADIN 5 MG PO (17:52)
[2025-07-24] MEDS: TYLENOL 650 MG PO (19:35)
--- NOTE | 2025-07-24 22:30 | PTCARENOTE ---
Upon assessment pt with rigors, tachypneic and 'freezing'. Temp 102 PO. Tylenol given, house provider notified. 2 sets of blood cultures sent and pending. Repeat temp 99.7, will monitor. Otherwise assessment remains unchanged. Pt resting comfortably
with no c/o pain. Flat affect at times, but participates in care. VPAced, BP stable. IV lines flushed and patent. LE edema B/L, doppler pulses. Room air. Tolerating low residue diet. Inc bowel/bladder. Bath provided. Will maintain safe environment.
[2025-07-25] VITALS (15 sets, daily range): BP systolic 93–128; BP diastolic 30–104; BMI 28.6
[2025-07-25] MEDS: FLAGYL 500 MG PO ×2 (00:13→08:39)
[2025-07-25] MEDS: STERILE WATER FOR INJECTION 10 ML IV ×4 (03:15→21:14)
[2025-07-25] MEDS: MAXIPIME 1000 MG IV (03:15)
[2025-07-25 03:46] LABS: Hematocrit 30.3 % (39.0-52.0); Hemoglobin 10.4 g/dL (13.0-18.0); Mean Corp Hgb Conc. 34.3 g/dL (33.0-37.0); Mean Corpuscular Volume 93.2 fL (80.0-94.0); Nucleated Red Blood Cells % 0 % (-); Platelet Count 152 10^3/uL (130-400); Red Cell Dist. Width 15.5 % (11.5-14.5)
[2025-07-25 04:01] LABS: INR 2.36; PT 25.9 Sec (11.4-14.6)
[2025-07-25 04:08] LABS: Blood Urea Nitrogen 38 mg/dl (9-20); Calcium 7.8 mg/dl (8.4-10.2); Carbon Dioxide 25 mmol/L (22-30); Chloride 103 mmol/L (98-107); Estimated Creatinine Clearance 91 ml/min; Glucose 85 mg/dl (70-99); Potassium 3.9 mmol/L (3.5-5.1); Sodium 132 mmol/L (135-145); eGFR > 60.00
[2025-07-25] MEDS: SYNTHROID 50 MCG PO (06:02)
[2025-07-25] MEDS: HYDROPHOR 1 APPLIC TOPICAL (08:37)
[2025-07-25] MEDS: VISBIOME 2 CAP PO (08:38)
[2025-07-25] MEDS: MIRALAX 17 GRAMS PO (08:38)
[2025-07-25] MEDS: METAMUCIL, KONSYL 1 PACKET PO (08:38)
[2025-07-25] MEDS: PROTONIX 40 MG PO (08:39)
[2025-07-25] MEDS: ZYVOX 600 MG PO ×2 (08:39→21:13)
--- NOTE | 2025-07-25 08:58 | W.PN.ID1 ---
Date of Service
Date of Service: July 25, 2025
Today's Communication
See below.
Assessment / Plan
# Suspect drug rash and fever
# Fever recurrence, persists
# Leukocytosis recurrence, improved
# Severe LLE cellulitis, improving
# Group G streptococcus bacteremia - cellulitis source
# TANA resolved
# Anasarca
# s/p Septic shock due to cellulitis/bacteremia, weaned off pressor
# Acute on chronic thrombocytopenia, resolved
# Elevated LFT's trending down
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
# PPM
- TTE: no gross vegetations; AVR and MV repair with normal gradients
- 07/23 blood cx's x 2 neg to date
-07/24 blood cx's x 2 pending
- 07/23 CT LLE with contrast: no abscess/nec fasciitis
- s/p 3d clindamycin 900mg IV q8 as toxin inhibitor
- s/p ceftriaxone (5d) then switched to IV cefepime, po metronidazole, and po linezolid (d3)
- ??? BLE rash and fever due to cephalosporins?
- Replace cefepime/metronidazole with meropenem 500mg IV q6h
-Continue empiric linezolid po(d3) (also with toxin-inhibitor properties)
- Trend temps/wbc
- Poor prognosis.
#Conditions present on admission:
HTN
Atrial fibrillation on Coumadin
Complete heart block s/p PPM
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
AV homograft regurgitation s/p bioprosthetic AVR 2014
Thoracic aortic aneurysm
CAD
Hypothyroidism
Chronic thrombocytopenia
Venous stasis
Overactive bladder
Rectal prolapse
Essential tremor
Chronic constipation
Prostate ca (2002) s/p radical prostatectomy, XRT
Right total knee replacement
Chief Complaint
-: Fever, Clinical Sepsis, Cellulitis and Bacteremia
Subjective / Review of Systems
No new complaints. Feel weak.
Vital Signs / Physical Exam
Vital Signs
Vital Signs
Temp Pulse Resp BP Pulse Ox
97.9 F 75 25 111/44 96
07/25/25 00:00 07/25/25 08:39 07/25/25 08:00 07/25/25 08:39 07/24/25 09:00
Selected Entries
07/24/25
20:00
Temp 102 F H
Physical Exam
Constitutional: Acutely Ill and Chronically Ill
Cardiovascular: Regular Rate, S1/S2 and Other (LCW PPM no erythema)
Pulmonary: Other (Decreased BS)
Gastrointestinal: Soft, Non Tender and Non Distended
Extremities: Edema (Anasarca), Erythema (LLE: bright erythema now dark with subcutaneous petechiae; edema decreasing) and Venous Insufficiency (BLE)
Skin: Rash (Left thigh erythema appears like rash than cellulitis: Right knee and distal thigh also with macular rash)
Neurological: AO x 3 and Other (Letahrgic)
Objective Data
Lab Data
Lab Results
07/25/25 03:14
07/25/25 03:14
PT 25.9 Sec (11.4-14.6) H 07/25/25 03:14
INR 2.36 07/25/25 03:14
APTT 52.2 Sec (23.4-35.0) H 07/17/25 11:28
Estimated Creat Clear 91 ml/min 07/25/25 03:14
Lactic Acid 1.2 mmol/L (0.7-2.0) 07/23/25 09:58
Total Bilirubin 4.9 mg/dl (0.2-1.3) H 07/24/25 05:05
AST 44 U/L (17-59) 07/24/25 05:05
ALT 36 U/L (0-50) 07/24/25 05:05
Alkaline Phosphatase 196 U/L (38-126) H 07/24/25 05:05
Most recent labs reviewed.
Micro Results:
07/24/25 21:03 Blood Culture - Pending
Blood/Venous
07/24/25 19:45 Blood Culture - Pending
Blood/Venous
07/17/25 11:33 Blood Culture - Final
Blood/Venous Group G Streptococcus
Gram Stain - Final
07/17/25 11:28 Blood Culture - Final
Blood/Venous Group G Streptococcus
Gram Stain - Final
07/23/25 10:08 Blood Culture - Preliminary
Blood/Venous No Growth in 24 hours- Final report to follow
07/23/25 10:08 Blood Culture - Preliminary
Blood/Venous No Growth in 24 hours- Final report to follow
07/18/25 14:51 Blood Culture - Final
Blood/Venous No Growth - Final Report
07/18/25 14:50 Blood Culture - Final
Blood/Venous No Growth - Final Report
07/17/25 16:46 Salmonella/Shigella Culture - Final
Feces/Stool No Salmonella, Shigella, Aeromonas or Plesiomonas species
isolated.
Campylobacter Culture - Final
No Campylobacter species isolated.
Shiga Toxin Test - Final
No E. coli Shiga Toxin 1 or 2 detected.
07/17/25 11:33 Urine Culture - Final
Urine
07/17/25 16:46 C. difficile GDH Antigen & Toxins - Final
Feces/Stool Negative for toxigenic C.difficile
07/17/25 11:28 Influenza Types A & B (CHRIS) - Final
Nasal Swab Negative for Influenza A & B, NAAT
Negative results must be combined with clinical observations
and patient history.
Nucleic Acid Amplification test (NAAT)performed on the
[employer] platform.
07/17/25 CXR: Cardiomegaly. Pulmonary vascularity at least top normal. No focal parenchymal opacification to suggest pneumonia.
07/17/25 CT a/p: Probable complex cyst of the right kidney. Further evaluation with a CT of the kidneys pre- and post-IV contrast or MRI examination recommended. Malignancy not excluded. Increased complexity.
Bilateral subcentimeter hyperdense renal lesions likely benign proteinaceous cysts. New
Tiny nonobstructing bilateral renal stones. New.
Findings suggestive of fecal impaction. Moderate rectal wall thickening. Stercoral colitis cannot excluded. Progressed.
Mild diffuse bladder wall thickening. This can be seen with cystitis or bladder outlet obstruction. Stable
Care Review
Plan reviewed with: Nurse
[2025-07-25] MEDS: STERILE WATER FOR INJECTION IV ×4 (09:44→21:31)
[2025-07-25] MEDS: MERREM 500 MG IV ×3 (09:44→21:13)
--- NOTE | 2025-07-25 13:12 | W.PN.HOSP.TC ---
Today's Communication/Plan
-
Antibiotics changed to meropenem and Zyvox
Monitor temperature curve
Monitor volume status closely
PT eval
Assessment / Plan
Assessment / Plan
Impression:
Severe sepsis with septic shock requiring vasopressors secondary to left lower extremity cellulitis with group G Streptococcus bacteria
Severe left lower extremity cellulitis complicated with chronic venous stasis/dermatitis
Lactic acidosis
Nontraumatic rhabdomyolysis.
TANA
Abnormal LFTs in the settings of septic shock (hyperbilirubinemia/transaminitis)
Hematochezia suspect stercoral colitis and secondary to anticoagulation.
Hypokalemia
Conditions prior to admission:
Chronic atrial fibrillation baseline anticoagulation with warfarin.
History of AV block status post pacemaker
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
History of aortic valve replacement, bioprosthetic complicated with aortic root dissection 2014
Thoracic aortic aneurysm.
Essential hypertension
Essential tremor.
Prostate carcinoma status post radical prostatectomy and radiation 2002.
Hypothyroidism.
Dyslipidemia.
Bilateral hip replacement
Plan
Severe sepsis with septic shock requiring vasopressors secondary to the left lower extremity cellulitis with group G Streptococcus bacteremia.
Imaging with CT scan and clinically ruled out necrotizing fasciitis.
Echocardiogram with no evidence of endocarditis
Bacteremia cleared with repeated blood cultures negative to date.
Afebrile with improved hemodynamics and trending down WBC, resolved lactic acidosis.
Status post clindamycin for toxin inhibition
With persistent fever antibiotics changed to meropenem with empiric Zyvox (toxin admitting for prophy)
Continue dressing changes.
Follow-up closely including temperature curve, WBC
Hematochezia
CT scan on admission 07/17 with evidence of stercoral colitis
Stable hemoglobin indicative of chronic anemia.
Advance to low residue diet
Bowel regimen including MiraLAX.
As there is no evidence of upper GI source transition to oral PPI for prophylaxis.
GI following.
LFTs trending down.
Acute kidney injury
Improved with IV hydration and normalized hemodynamics.
Monitor closely
Monitor for retention
Avoid nephrotoxins including NSAIDs
Over Levophed
Transition to midodrine 10 mg every 8. Monitor BP closely.
Chronic atrial fibrillation, AV block status post pacemaker.
Echo 07/18
1. Low normal left ventricular systolic function. LVEF 52%.
2. Right ventricle is severely dilated with moderately reduced systolic function and septal flattening consistent with RV volume overload.
3. Severe biatrial enlargement.
4. S/p AVR with normal gradients.
5. S/p mitral valve repair with normal gradients and mild residual MR.
6. Dilated aortic root (4.2 cm).
7. Compared to prior echocardiogram, TR has improved from moderate to severe. Otherwise unchanged.
Preadmission regimen including atenolol and digoxin. Currently off.
Continue midodrine avoiding hypotension
Anticoagulation/Coumadin induced coagulopathy: INR down to 2. Resume Coumadin and follow INR daily while on antibiotics.
Mild volume overload without evidence of CHF
Echo as above
Lasix provided on 07/23
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
Monitor volume status closely.
Hypokalemia with repleted potassium.
Mild hyponatremia secondary to above. Monitor
Hypothyroidism on replacement
Dyslipidemia. Reintroduce statin once stable LFTs.
Chronic thrombocytopenia.
Anticipated Discharge: > 48 hours
Subjective/Interval History
-
Date of Service: July 25, 2025
Objective Data
-
Labs:
Laboratory Results
07/25/25
03:14
WBC 12.2 H
Hgb 10.4 L
Hct 30.3 L
Plt Count 152
PT 25.9 H
INR 2.36
Sodium 132 L
Potassium 3.9
Chloride 103
Carbon Dioxide 25
BUN 38 H
Creatinine 0.8
Glucose 85
Calcium 7.8 L
Vital Signs:
Vital Signs
Temp Pulse Resp BP Pulse Ox
98.5 F 75 18 93/78 100
07/25/25 11:30 07/25/25 12:00 07/25/25 12:00 07/25/25 12:00 07/25/25 12:00
I&O
07/24/25 07/25/25 07/26/25
06:59 06:59 06:59
Intake Total 3298 / 3298 1690 / 1690 410 / 410
Output Total 1300 / 1300 225 / 225
Balance 1997 1690 / 1690 185 / 185
Physical Exam
-
General: Well Developed and No Apparent Distress
HEENT: Normocephalic, Atraumatic and Moist Mucous Membranes
Respiratory: Clear to Auscultation
Cardiac: Regular Rhythm, S1/S2 and Murmur; Negative Rub or Gallop
GI: Soft, Nontender, Nondistended and Normal Bowel Sounds; Negative Organomegaly
Rectal: Deferred by Provider
Musculoskeletal: No Clubbing, No Cyanosis and Other (Bilateral 2+ lower extremity pitting edema with venous static dermatitis. Left lower extremity with erythema and induration from the ankle to the knee. Dopplerable pedal pulses bilaterally.)
Skin: Negative Rash
Neuro: Nonfocal/Grossly Intact
--- NOTE | 2025-07-25 14:15 | W.PN.UPDATE ---
Update Note
Progress Note Update
Patient's updated over the phone.
Advance directive reviewed.
CODE STATUS DNR
[2025-07-25] MEDS: TYLENOL 650 MG PO (15:13)
--- NOTE | 2025-07-25 15:44 | CM ---
Now DNR, LLE cellulitis improving, Monitoring INR/H&H, IV/Meropenem. Discharge POC: SNF. Referrals previously forwarded.
[2025-07-25] MEDS: COUMADIN 5 MG PO (17:46)
--- NOTE | 2025-07-25 20:28 | W.PN.UPDATE ---
Update Note
Progress Note Update
Called to bedside to discuss code status. Per patient and patient's daughter, Vipin, patient does want to be FULL CODE at this time. Patient confirms that he wishes to have CPR performed if his heart were to stop and would be agreeable to be
placed on a breathing machine if he needed respiratory support. Patient was not aware his code status was changed to DNR earlier today and wants his code status changed back to FULL CODE.
--- NOTE | 2025-07-25 22:00 | PTCARENOTE ---
Rec'd patient as a DNR, unbeknownst to him and his daughter. There was a conversation earlier today regarding code status with over the phone. Patient was not included in conversation and does not wish to be DNR. [employer] Sai at bedside to
discuss with patient in detail. Code status changed back to Full Code. CT leg completed and patient fed dinner. Updated on plan of care and resting comfortably. Will monitor.
[2025-07-26] VITALS (15 sets, daily range): BP systolic 89–127; BP diastolic 44–68; PULSE 70–72; O2SAT 97–98; BMI 28.4
[2025-07-26] MEDS: TYLENOL 650 MG PO ×3 (02:55→19:33)
[2025-07-26] MEDS: STERILE WATER FOR INJECTION 10 ML IV ×4 (02:56→23:00)
[2025-07-26] MEDS: MERREM 500 MG IV ×4 (02:56→23:00)
[2025-07-26 03:19] LABS: Hematocrit 30.5 % (39.0-52.0); Hemoglobin 10.5 g/dL (13.0-18.0); Mean Corp Hgb Conc. 34.4 g/dL (33.0-37.0); Mean Corpuscular Volume 94.1 fL (80.0-94.0); Nucleated Red Blood Cells % 0 % (-); Platelet Count 169 10^3/uL (130-400); Red Cell Dist. Width 15.4 % (11.5-14.5)
[2025-07-26] MEDS: STERILE WATER FOR INJECTION IV ×4 (03:30→23:24)
[2025-07-26 03:39] LABS: INR 2.36; PT 25.9 Sec (11.4-14.6)
[2025-07-26 03:47] LABS: Blood Urea Nitrogen 34 mg/dl (9-20); Calcium 7.7 mg/dl (8.4-10.2); Carbon Dioxide 25 mmol/L (22-30); Chloride 104 mmol/L (98-107); Estimated Creatinine Clearance 91 ml/min; Glucose 130 mg/dl (70-99); Potassium 3.9 mmol/L (3.5-5.1); Sodium 133 mmol/L (135-145); eGFR > 60.00
[2025-07-26] MEDS: SYNTHROID 50 MCG PO (05:52)
[2025-07-26] MEDS: MIRALAX PO ×2 (08:16→08:28)
[2025-07-26] MEDS: DILAUDID 0.25 MG IV (08:16)
[2025-07-26] MEDS: METAMUCIL, KONSYL 1 PACKET PO (08:16)
[2025-07-26] MEDS: PROTONIX 40 MG PO (08:17)
[2025-07-26] MEDS: ZYVOX 600 MG PO ×2 (08:17→19:33)
[2025-07-26] MEDS: HYDROPHOR 1 APPLIC TOPICAL (08:28)
--- NOTE | 2025-07-26 09:31 | W.PN.ID1 ---
Date of Service
Date of Service: July 26, 2025
Today's Communication
Ordered CXR, Abd US.
Continue meropenem and linezolid.
Assessment / Plan
# Suspect drug rash from cephalosporins
# Fever persists
# Leukocytosis resolved
# Severe LLE cellulitis, improving
# Group G streptococcus bacteremia - cellulitis source
# TANA resolved
# Anasarca
# s/p Septic shock due to cellulitis/bacteremia, weaned off pressor
# Acute on chronic thrombocytopenia, resolved
# Elevated LFT's resolved; hyperbilirubinemia stable
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
# PPM
- TTE: no gross vegetations; AVR and MV repair with normal gradients
- 07/23 blood cx's x 2 neg to date
-07/24 blood cx's x 2 neg to date
- 07/23 CT LLE with contrast: no abscess/nec fasciitis
- s/p 3d clindamycin 900mg IV q8 as toxin inhibitor
- s/p ceftriaxone (5d) then switched to IV cefepime, po metronidazole, and po linezolid (d3)
- s/p cefepime/metronidazole (2d)
- Ordered CXR and abd US as part of fever work-up
- Continue meropenem 500mg IV q6h (d2)
-Continue empiric linezolid po(d4) (also with toxin-inhibitor properties)
- Trend temps/wbc
- Poor prognosis. Pt still wishes full-code.
#Conditions present on admission:
HTN
Atrial fibrillation on Coumadin
Complete heart block s/p PPM
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
AV homograft regurgitation s/p bioprosthetic AVR 2014
Thoracic aortic aneurysm
CAD
Hypothyroidism
Chronic thrombocytopenia
Venous stasis
Overactive bladder
Rectal prolapse
Essential tremor
Chronic constipation
Prostate ca (2002) s/p radical prostatectomy, XRT
Right total knee replacement
Chief Complaint
-: Fever, Clinical Sepsis, Cellulitis and Bacteremia
Subjective / Review of Systems
No new complaints. Denies cough, N/V/D.
Vital Signs / Physical Exam
Vital Signs
Vital Signs
Temp Pulse Resp BP Pulse Ox
99.8 F 72 19 102/66 95
07/26/25 07:23 07/26/25 08:32 07/26/25 08:32 07/26/25 08:32 07/26/25 08:32
Selected Entries
07/25/25
15:07 07/26/25
03:00
Temp 103.2 F H 101 F H
Physical Exam
Constitutional: Acutely Ill and Chronically Ill
Head: Other (no sinus tenderness)
Cardiovascular: Regular Rate, S1/S2 and Other (LCW PPM no erythema)
Pulmonary: Other (Decreased BS)
Gastrointestinal: Soft, Non Tender and Non Distended
Extremities: Edema (Anasarca), Erythema (LLE: erythema now dark with subcutaneous petechiae; edema decreasing) and Venous Insufficiency (BLE)
Skin: Rash (Left thigh macular rash stable: Right knee and distal thigh macular rash stable)
Neurological: AO x 3 and Other (Letahrgic)
Objective Data
Lab Data
Lab Results
07/26/25 02:55
07/26/25 02:55
PT 25.9 Sec (11.4-14.6) H 07/26/25 02:55
INR 2.36 07/26/25 02:55
APTT 52.2 Sec (23.4-35.0) H 07/17/25 11:28
Estimated Creat Clear 91 ml/min 07/26/25 02:55
Lactic Acid 1.2 mmol/L (0.7-2.0) 07/23/25 09:58
Total Bilirubin 4.9 mg/dl (0.2-1.3) H 07/24/25 05:05
AST 44 U/L (17-59) 07/24/25 05:05
ALT 36 U/L (0-50) 07/24/25 05:05
Alkaline Phosphatase 196 U/L (38-126) H 07/24/25 05:05
Most recent labs reviewed.
Micro Results:
07/24/25 21:03 Blood Culture - Preliminary
Blood/Venous No Growth in 24 hours- Final report to follow
07/24/25 19:45 Blood Culture - Preliminary
Blood/Venous No Growth in 24 hours- Final report to follow
07/23/25 10:08 Blood Culture - Preliminary
Blood/Venous No Growth in 48 hours- Final report to follow
07/23/25 10:08 Blood Culture - Preliminary
Blood/Venous No Growth in 48 hours- Final report to follow
07/17/25 11:33 Blood Culture - Final
Blood/Venous Group G Streptococcus
Gram Stain - Final
07/17/25 11:28 Blood Culture - Final
Blood/Venous Group G Streptococcus
Gram Stain - Final
07/18/25 14:51 Blood Culture - Final
Blood/Venous No Growth - Final Report
07/18/25 14:50 Blood Culture - Final
Blood/Venous No Growth - Final Report
07/17/25 16:46 Salmonella/Shigella Culture - Final
Feces/Stool No Salmonella, Shigella, Aeromonas or Plesiomonas species
isolated.
Campylobacter Culture - Final
No Campylobacter species isolated.
Shiga Toxin Test - Final
No E. coli Shiga Toxin 1 or 2 detected.
07/17/25 11:33 Urine Culture - Final
Urine
07/17/25 16:46 C. difficile GDH Antigen & Toxins - Final
Feces/Stool Negative for toxigenic C.difficile
07/17/25 11:28 Influenza Types A & B ([facility]IS) - Final
Nasal Swab Negative for Influenza A & B, NAAT
Negative results must be combined with clinical observations
and patient history.
Nucleic Acid Amplification test (NAAT)performed on the
[employer] platform.
07/17/25 CXR: Cardiomegaly. Pulmonary vascularity at least top normal. No focal parenchymal opacification to suggest pneumonia.
07/17/25 CT a/p: Probable complex cyst of the right kidney. Further evaluation with a CT of the kidneys pre- and post-IV contrast or MRI examination recommended. Malignancy not excluded. Increased complexity.
Bilateral subcentimeter hyperdense renal lesions likely benign proteinaceous cysts. New
Tiny nonobstructing bilateral renal stones. New.
Findings suggestive of fecal impaction. Moderate rectal wall thickening. Stercoral colitis cannot excluded. Progressed.
Mild diffuse bladder wall thickening. This can be seen with cystitis or bladder outlet obstruction. Stable
--- NOTE | 2025-07-26 12:00 | PTCARENOTE ---
Received report from RN, assumed care at 1100. Nursing assessment completed and as documented. Patient resting in chair upon assessment. triage register nurse at bedside and wound care done. Medications given as per order, see MAR. PT assisted patient from
chair to bed, heavy assist x2. Patient inc of urine, hygiene care completed. Hospitalist made aware of LUE edema, ultrasound ordered. Patient drowsy but arouses, tremors at fine's but remains afebrile. VSS, call hager within reach, care ongoing.
--- NOTE | 2025-07-26 13:49 | W.PN.HOSP.TC ---
Today's Communication/Plan
-
IV antibiotics
Monitor temperature curve
Assessment / Plan
Assessment / Plan
Impression:
Severe sepsis with septic shock requiring vasopressors secondary to left lower extremity cellulitis with group G Streptococcus bacteria
Severe left lower extremity cellulitis complicated with chronic venous stasis/dermatitis
Lactic acidosis
Nontraumatic rhabdomyolysis.
TANA
Abnormal LFTs in the settings of septic shock (hyperbilirubinemia/transaminitis)
Hematochezia suspect stercoral colitis and secondary to anticoagulation.
Hypokalemia
Conditions prior to admission:
Chronic atrial fibrillation baseline anticoagulation with warfarin.
History of AV block status post pacemaker
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
History of aortic valve replacement, bioprosthetic complicated with aortic root dissection 2014
Thoracic aortic aneurysm.
Essential hypertension
Essential tremor.
Prostate carcinoma status post radical prostatectomy and radiation 2002.
Hypothyroidism.
Dyslipidemia.
Bilateral hip replacement
Plan
Severe sepsis with septic shock requiring vasopressors secondary to the left lower extremity cellulitis with group G Streptococcus bacteremia.
Imaging with CT scan and clinically ruled out necrotizing fasciitis.
Echocardiogram with no evidence of endocarditis
Bacteremia cleared with repeated blood cultures negative to date.
Afebrile with improved hemodynamics and trending down WBC, resolved lactic acidosis.
Status post clindamycin for toxin inhibition
With persistent fever antibiotics changed to meropenem with empiric Zyvox (toxin admitting for prophy)
Persistent fever while on antibiotics per
Follow-up CT scan 07/31 of the left lower extremity with cellulitis but no evidence of abscess or necrotizing fasciitis
Chest x-ray 04/25 with no infiltrate
Repeat blood cultures negative today
Noted persistent hyperbilirubinemia. Denies any abdominal complaints. Ultrasound of the abdomen
Hematochezia
CT scan on admission 07/17 with evidence of stercoral colitis
Stable hemoglobin indicative of chronic anemia.
Advance to low residue diet
Bowel regimen including MiraLAX.
As there is no evidence of upper GI source transition to oral PPI for prophylaxis.
GI following.
LFTs trending down.
Acute kidney injury
Improved with IV hydration and normalized hemodynamics.
Monitor closely
Monitor for retention
Avoid nephrotoxins including NSAIDs
Over Levophed
Transition to midodrine 10 mg every 8. Monitor BP closely.
Chronic atrial fibrillation, AV block status post pacemaker.
Echo 07/18
1. Low normal left ventricular systolic function. LVEF 52%.
2. Right ventricle is severely dilated with moderately reduced systolic function and septal flattening consistent with RV volume overload.
3. Severe biatrial enlargement.
4. S/p AVR with normal gradients.
5. S/p mitral valve repair with normal gradients and mild residual MR.
6. Dilated aortic root (4.2 cm).
7. Compared to prior echocardiogram, TR has improved from moderate to severe. Otherwise unchanged.
Preadmission regimen including atenolol and digoxin. Currently off.
Continue midodrine avoiding hypotension
Anticoagulation/Coumadin induced coagulopathy: INR down to 2. Resume Coumadin and follow INR daily while on antibiotics.
Mild volume overload without evidence of CHF
Echo as above
Lasix provided on 07/23
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
Monitor volume status closely.
Hypokalemia with repleted potassium.
Mild hyponatremia secondary to above. Monitor
Hypothyroidism on replacement
Dyslipidemia. Reintroduce statin once stable LFTs.
Chronic thrombocytopenia.
Goals of care discussion, patient desired to be full code.
Anticipated Discharge: > 48 hours
Subjective/Interval History
-
Date of Service: July 26, 2025
Objective Data
-
Labs:
Laboratory Results
07/26/25
02:55
WBC 9.9
Hgb 10.5 L
Hct 30.5 L
Plt Count 169
PT 25.9 H
INR 2.36
Sodium 133 L
Potassium 3.9
Chloride 104
Carbon Dioxide 25
BUN 34 H
Creatinine 0.8
Glucose 130 H
Calcium 7.7 L
Vital Signs:
Vital Signs
Temp Pulse Resp BP Pulse Ox
98.2 F 73 23 102/50 95
07/26/25 11:17 07/26/25 11:00 07/26/25 11:00 07/26/25 10:00 07/26/25 08:32
I&O
07/25/25 07/26/25 07/27/25
06:59 06:59 06:59
Intake Total 1690 / 1690 1180 / 1180
Output Total 550 / 550
Balance 1690 / 1690 630 / 630
Physical Exam
-
General: Well Developed and No Apparent Distress
HEENT: Normocephalic, Atraumatic and Moist Mucous Membranes
Respiratory: Clear to Auscultation
Cardiac: Regular Rhythm, S1/S2 and Murmur; Negative Rub or Gallop
GI: Soft, Nontender, Nondistended and Normal Bowel Sounds; Negative Organomegaly
Rectal: Deferred by Provider
Musculoskeletal: No Clubbing, No Cyanosis and Other (Bilateral 2+ lower extremity pitting edema with venous static dermatitis. Left lower extremity with erythema and induration from the ankle to the knee. Dopplerable pedal pulses bilaterally.)
Skin: Negative Rash
Neuro: Nonfocal/Grossly Intact
--- NOTE | 2025-07-26 14:09 | WOUNDNOTE ---
RIGHT LATERAL LOWER LEG
--- NOTE | 2025-07-26 14:10 | WOUNDNOTE ---
LEFT MEDIAL LOWER LEG
--- NOTE | 2025-07-26 14:10 | WOUNDNOTE ---
LEFT LATERAL LOWER LEG
--- NOTE | 2025-07-26 14:19 | WOUNDNOTE ---
WO RN NOTE: Patient visited to follow up on LE wounds. LE blisters are now open and progressing toward healing. Wound care ordered on 07/18 continues to be appropriated. Wound care provided as ordered and GWEN wrap applied. Heels intact and
off-loaded with pillow and air cushion under calves. Sacrum intact. Patient remains on [employer] Max Air. RN, Pat given update. Will sign off.
--- NOTE | 2025-07-26 15:45 | CM ---
CXR, Abd US, IV/Meropenem. Discharge POC: SNF. Referrals previously forwarded. Will need insurance auth.
[2025-07-26] MEDS: COUMADIN 5 MG PO (17:43)
[2025-07-27] VITALS (12 sets, daily range): BP systolic 99–124; BP diastolic 43–104; BMI 28.7
--- NOTE | 2025-07-27 00:52 | PTCARENOTE ---
Pt lethargic, opens eyes to voice, RENE generalized weakness with an emphasis on the lower extremities. Patient with flat affect. Afebrile thus far this shift. VPaced, BP stable. Edema in lower extremities, L>R. Doppler signals in lowers. LUE
swelling appreciated, order noted for ultrasound. Room air, non productive cough. 94%. Tolerating low residue diet. Incontinent bowel/bladder. Skin as documented. Will monitor.
[2025-07-27] MEDS: MERREM 500 MG IV ×4 (04:00→22:23)
[2025-07-27] MEDS: SYNTHROID 50 MCG PO (05:03)
[2025-07-27] MEDS: STERILE WATER FOR INJECTION IV ×4 (05:03→23:20)
[2025-07-27] MEDS: STERILE WATER FOR INJECTION 10 ML IV ×4 (05:03→22:23)
[2025-07-27 05:46] LABS: INR 2.67; PT 28.8 Sec (11.4-14.6)
[2025-07-27 05:58] LABS: ALT (SGPT) 28 U/L (0-50); AST (SGOT) 39 U/L (17-59); Albumin 2.5 g/dl (3.5-5.0); Alkaline Phosphatase 182 U/L (38-126); Blood Urea Nitrogen 31 mg/dl (9-20); Calcium 7.6 mg/dl (8.4-10.2); Carbon Dioxide 25 mmol/L (22-30); Chloride 104 mmol/L (98-107); Estimated Creatinine Clearance 81 ml/min; Glucose 79 mg/dl (70-99); Potassium 4.3 mmol/L (3.5-5.1); Sodium 133 mmol/L (135-145); Total Protein 6.7 g/dl (6.3-8.2); eGFR > 60.00
[2025-07-27 06:04] LABS: Hematocrit 30.4 % (39.0-52.0); Hemoglobin 10.0 g/dL (13.0-18.0); Mean Corp Hgb Conc. 32.9 g/dL (33.0-37.0); Mean Corpuscular Volume 94.7 fL (80.0-94.0); Nucleated Red Blood Cells % 0 % (-); Platelet Count 174 10^3/uL (130-400); Red Cell Dist. Width 15.6 % (11.5-14.5)
[2025-07-27] MEDS: HYDROPHOR 1 APPLIC TOPICAL (08:01)
[2025-07-27] MEDS: ZYVOX 600 MG PO (08:06)
[2025-07-27] MEDS: METAMUCIL, KONSYL 1 PACKET PO (08:06)
[2025-07-27] MEDS: MIRALAX 17 GRAMS PO (08:06)
[2025-07-27] MEDS: PROTONIX 40 MG PO (08:06)
[2025-07-27] MEDS: TYLENOL 650 MG PO ×3 (08:29→22:37)
--- NOTE | 2025-07-27 11:01 | W.PN.ID1 ---
Date of Service
Date of Service: July 27, 2025
Today's Communication
NICOLE. See below.
Assessment / Plan
# Suspect drug rash from cephalosporins
. Improving. Malar erythroderma resolved, Bilateral thigh maculopapular rash improved
# Fever persists
# Leukocytosis resolved
# Severe LLE cellulitis, improving
# Group G streptococcus bacteremia - cellulitis source
# TANA resolved
# Anasarca
# s/p Septic shock due to cellulitis/bacteremia, weaned off pressor
# Acute on chronic thrombocytopenia, resolved
# Elevated LFT's resolved; hyperbilirubinemia stable
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
# PPM
-07/17 CT a/p: fecal impaction
- TTE: no gross vegetations; AVR and MV repair with normal gradients
- 07/23 blood cx's x 2 neg
-07/24 blood cx's x 2 neg
- 07/23 CT LLE with contrast: no abscess/nec fasciitis
- 07/26 CXR marked cardiomegaly, no consolidation
-07/26 ABD US: no steve dil, no cholecystitis
- s/p 3d clindamycin 900mg IV q8 as toxin inhibitor
- s/p ceftriaxone (5d) then switched to IV cefepime, po metronidazole, and po linezolid (d3)
- then s/p cefepime/metronidazole (2d)
- Continue meropenem 500mg IV q6h (d3)
- dc empiric linezolid po(d5) (toxin inhibitor)
- Trend temps
- Poor prognosis. Pt still wishes full-code.
- No source of persistent fevers to date.
- Recommend NICOLE.
Aware pt is not surgical candidate. However, if positive acute cardiac abnormality/IE, patient may be more open to GOC discussion.
#Conditions present on admission:
HTN
Atrial fibrillation on Coumadin
Complete heart block s/p PPM
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
AV homograft regurgitation s/p bioprosthetic AVR 2014
Thoracic aortic aneurysm
CAD
Hypothyroidism
Chronic thrombocytopenia
Venous stasis
Overactive bladder
Rectal prolapse
Essential tremor
Chronic constipation
Prostate ca (2002) s/p radical prostatectomy, XRT
Right total knee replacement
Chief Complaint
-: Fever, Clinical Sepsis, Cellulitis and Bacteremia
Subjective / Review of Systems
Remains febrile. No new symptoms.
Vital Signs / Physical Exam
Vital Signs
Vital Signs
Temp Pulse Resp BP Pulse Ox
101.4 F H 70 23 118/104 94
07/27/25 08:27 07/27/25 06:00 07/27/25 06:00 07/27/25 06:00 07/27/25 08:37
Physical Exam
Constitutional: Acutely Ill and Chronically Ill
Head: Other (no sinus tenderness)
Cardiovascular: Regular Rate, S1/S2 and Other (LCW PPM no erythema)
Pulmonary: Other (Decreased BS)
Gastrointestinal: Soft, Non Tender and Non Distended
Extremities: Edema (Anasarca), Erythema (LLE: erythema now dark with subcutaneous petechiae; edema decreasing) and Venous Insufficiency (BLE)
Skin: Rash (Rash on cheeks resolved Left thigh macular rash improving: Right knee and distal thigh macular rash improving)
Neurological: AO x 3 and Other (Letahrgic)
Objective Data
Lab Data
Lab Results
07/27/25 05:04
07/27/25 05:04
PT 28.8 Sec (11.4-14.6) H 07/27/25 05:04
INR 2.67 07/27/25 05:04
APTT 52.2 Sec (23.4-35.0) H 07/17/25 11:28
Estimated Creat Clear 81 ml/min 07/27/25 05:04
Lactic Acid 1.2 mmol/L (0.7-2.0) 07/23/25 09:58
Total Bilirubin 3.3 mg/dl (0.2-1.3) H 07/27/25 05:04
AST 39 U/L (17-59) 07/27/25 05:04
ALT 28 U/L (0-50) 07/27/25 05:04
Alkaline Phosphatase 182 U/L (38-126) H 07/27/25 05:04
Most recent labs reviewed.
Micro Results:
07/23/25 10:08 Blood Culture - Preliminary
Blood/Venous No Growth in 4 days- Final report to follow
07/23/25 10:08 Blood Culture - Preliminary
Blood/Venous No Growth in 4 days- Final report to follow
07/24/25 21:03 Blood Culture - Preliminary
Blood/Venous No Growth in 48 hours- Final report to follow
07/24/25 19:45 Blood Culture - Preliminary
Blood/Venous No Growth in 48 hours- Final report to follow
07/17/25 11:33 Blood Culture - Final
Blood/Venous Group G Streptococcus
Gram Stain - Final
07/17/25 11:28 Blood Culture - Final
Blood/Venous Group G Streptococcus
Gram Stain - Final
07/18/25 14:51 Blood Culture - Final
Blood/Venous No Growth - Final Report
07/18/25 14:50 Blood Culture - Final
Blood/Venous No Growth - Final Report
07/17/25 16:46 Salmonella/Shigella Culture - Final
Feces/Stool No Salmonella, Shigella, Aeromonas or Plesiomonas species
isolated.
Campylobacter Culture - Final
No Campylobacter species isolated.
Shiga Toxin Test - Final
No E. coli Shiga Toxin 1 or 2 detected.
07/17/25 11:33 Urine Culture - Final
Urine
07/17/25 16:46 C. difficile GDH Antigen & Toxins - Final
Feces/Stool Negative for toxigenic C.difficile
07/17/25 11:28 Influenza Types A & B (CHRIS) - Final
Nasal Swab Negative for Influenza A & B, NAAT
Negative results must be combined with clinical observations
and patient history.
Nucleic Acid Amplification test (NAAT)performed on the
[employer] platform.
07/17/25 CXR: Cardiomegaly. Pulmonary vascularity at least top normal. No focal parenchymal opacification to suggest pneumonia.
07/17/25 CT a/p: Probable complex cyst of the right kidney. Further evaluation with a CT of the kidneys pre- and post-IV contrast or MRI examination recommended. Malignancy not excluded. Increased complexity.
Bilateral subcentimeter hyperdense renal lesions likely benign proteinaceous cysts. New
Tiny nonobstructing bilateral renal stones. New.
Findings suggestive of fecal impaction. Moderate rectal wall thickening. Stercoral colitis cannot excluded. Progressed.
Mild diffuse bladder wall thickening. This can be seen with cystitis or bladder outlet obstruction. Stable
Care Review
Plan reviewed with: Physician (Dr. Gauthier)
--- NOTE | 2025-07-27 11:58 | CON.CAR ---
Addendum entered and electronically signed by Andrey Turner MD 07/27/25 12:55:
I saw and examined the patient independently, and I performed the majority of MDM.
The [employer]'s note was reviewed and I agree with the note with changes/additions as noted below.
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
fever. He denies CP/SOB. Exam with RRR, no murmurs, 1+ LE edema. Tele: V paced 75. TTE: no evidence of endocarditis within limits of TTE.
Given persistent fever, we will proceed with NICOLE in AM to assess for involvement of prosthetic valve and/or PPM. He will be high risk for any surgical procedures or device extraction; and would like choose med mgmt.
Permanent A fib. Stable. Continue warfarin. INR 2.67.
I updated his daughter by phone.
Original Note:
Consultation
Consultation Request
Date/Time Consultation Requested: 07/27/25 1118
Date/Time Consultation Performed: 07/27/25 1159
Requesting Provider: Dr. Tolentino
Performing Provider: Anisa VILLEGAS for Dr. Turner
Reason for Consultation: eval for NICOLE
Medical History
-
Chief Complaint: weakness
History of Present Illness:
80 y/o male (cardiology patient of Dr. 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
dyslipidemia who presented to the ER for weakness (admission date 07/17/25). He was admitted with septic shock felt to be related to LE cellulitis. Blood cultures positive for group G strep. Despite antibiotic management with ID, he continues to have
fevers and we are consulted due to request for NICOLE.
Past Medical History
Past Medical History: Arrhythmias (AFIB), Hypercholesterolemia, Valvular Disease and Other (as above)
Social History
Personal:
Living: With Family
Family History
Family History: Reviewed & Not Pertinent
Allergies / Home Medications
Allergy/AdvReac Type Severity Reaction Status Date / Time
bromide salts ([place]) Allergy Rash Verified 09/28/24 11:54
�Medication �Instructions �Recorded �Confirmed �Type
pravastatin 40 mg tablet 40 mg PO HS High cholesterol 08/01/08 07/17/25 History
levothyroxine 50 mcg tablet 50 mcg PO DAILY Thyroid 06/18/21 07/17/25 History
solifenacin 10 mg tablet (Vesicare) 10 mg PO HS OVERACTIVE BLADDER 06/18/21 07/17/25 History
digoxin 125 mcg (0.125 mg) tablet 0.125 mg PO DAILY Heart 05/19/23 07/17/25 History
disease/condition
ibuprofen 200 mg tablet (Advil) 400 mg PO Q8HPRN PRN mild pain 07/17/25 07/17/25 History
warfarin 5 mg tablet 7.5 mg PO TUTH@1900 Blood Clot 07/17/25 07/17/25 History
Prevention/Tx
warfarin 5 mg tablet (Jantoven) 5 mg PO SUMOWEFRSA@1900 Blood Clot 07/17/25 07/17/25 History
Prevention/Tx
atenolol 25 mg tablet 25 mg PO HS Blood Pressure 07/18/25 07/17/25 History
methenamine hippurate 1 gram tablet 1 g PO BID prophylaxis 07/18/25 07/17/25 History
Review of Systems
-
History Source: Patient
All other systems: Negative unless noted
Constitutional: Fever and Other (weakness)
Musculoskeletal: Edema (LLE redness and swelling)
Physical Exam
Vital Signs
Temp Pulse Resp BP Pulse Ox
101.4 F H 70 23 118/104 94
07/27/25 08:27 07/27/25 06:00 07/27/25 06:00 07/27/25 06:00 07/27/25 08:37
Lab Results
07/27/25 05:04
07/27/25 05:04
Yfo-T-Cvmwgzeokbj Pept 5360 pg/ml 07/19/25 13:48
Physical Exam
General: Well Developed and No Apparent Distress
HEENT: Normocephalic and Anicteric
Respiratory: Clear and Non Labored Respirations
Cardiac: Regular Rhythm and Peripheral Edema (BLE edema, L moderate R mild)
Skin: Warm and Dry
Neuro: Awake, Alert and Oriented
Psych: Calm
Impression / Plan
-
Septic shock:
-this diagnosis is threat to life
-improved in that he is now off IV pressors
-LLE cellulitis noted, group G strep bacteremia. ID following and treating with antibiotics, but fevers continue and ID requesting NICOLE to help guide management. Discussed with patient and we reviewed procedure and risks. Will arrange for tomorrow.
Permanent AFIB on warfarin:
-monitor INR's closely
-off BB/dig for now, rates fine- follow telemetry
Valvular heart disease:
-aortic valve replacement/mitral valve repair/ASD closure 2000 for Endocarditis, then redo AVR 2014
-stable by TTE, eval with NICOLE and above
Pacemaker:
-follow tele
-eval as above
Data:
Echo 07/18/25: Low normal left ventricular systolic function. LVEF 52%. Right ventricle is severely dilated with moderately reduced systolic function and septal flattening consistent with RV volume overload. Severe biatrial enlargement. S/p AVR with
normal gradients. S/p mitral valve repair with normal gradients and mild residual MR. Dilated aortic root (4.2 cm). Compared to prior echocardiogram, TR has improved from moderate to severe. Otherwise unchanged.
Data Reviewed
-
EKG: Tracing Personally Visualized and interpreted (V paced rhythm)
Radiology: Report Reviewed by me (Marked cardiomegaly. Stable mild atelectasis or scarring in the left lung base.)
Medical Tests (Nuc Med, Echo etc): Report Reviewed by me (Echo as noted)
Labs: Labs Reviewed by me
[2025-07-27 12:21] LABS: Urine Character Clear (Clear)
[2025-07-27 13:36] LABS: Urine Squamous Cell 21-25 /LPF (Few); Urine White Cell 40-50 /HPF (0-5)
--- NOTE | 2025-07-27 14:57 | W.PN.HOSP.TC ---
Today's Communication/Plan
-
NICOLE
IV antibiotics
Assessment / Plan
Assessment / Plan
Impression:
Severe sepsis with septic shock requiring vasopressors secondary to left lower extremity cellulitis with group G Streptococcus bacteria
Severe left lower extremity cellulitis complicated with chronic venous stasis/dermatitis
Lactic acidosis
Nontraumatic rhabdomyolysis.
TANA
Abnormal LFTs in the settings of septic shock (hyperbilirubinemia/transaminitis)
Hematochezia suspect stercoral colitis and secondary to anticoagulation.
Hypokalemia
Conditions prior to admission:
Chronic atrial fibrillation baseline anticoagulation with warfarin.
History of AV block status post pacemaker
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
History of aortic valve replacement, bioprosthetic complicated with aortic root dissection 2014
Thoracic aortic aneurysm.
Essential hypertension
Essential tremor.
Prostate carcinoma status post radical prostatectomy and radiation 2002.
Hypothyroidism.
Dyslipidemia.
Bilateral hip replacement
Plan
Severe sepsis with septic shock requiring vasopressors secondary to the left lower extremity cellulitis with group G Streptococcus bacteremia.
Imaging with CT scan and clinically ruled out necrotizing fasciitis.
Echocardiogram with no evidence of endocarditis
Bacteremia cleared with repeated blood cultures negative to date.
Afebrile with improved hemodynamics and trending down WBC, resolved lactic acidosis.
Status post clindamycin for toxin inhibition
With persistent fever antibiotics changed to meropenem with empiric Zyvox (toxin admitting for prophy)
Persistent fever while on antibiotics per
Follow-up CT scan 07/31 of the left lower extremity with cellulitis but no evidence of abscess or necrotizing fasciitis
Chest x-ray 04/25 with no infiltrate
Repeat blood cultures negative to date
US of the abdomen (hyperbilirubinemia) with no evidence of acute biliary pathology.
He has persistent fever while on broad-spectrum antibiotics and overall stable findings in the left lower extremity. There is a reasonable concern for endocardial or infected device.
Discussed with cardiology and ID.
Plan for NICOLE to facilitate diagnosis and plan of care, while patient remains poor surgical candidate.
Hematochezia
CT scan on admission 07/17 with evidence of stercoral colitis
Stable hemoglobin indicative of chronic anemia.
Advance to low residue diet
Bowel regimen including MiraLAX.
As there is no evidence of upper GI source transition to oral PPI for prophylaxis.
GI following.
LFTs trending down.
Acute kidney injury
Improved with IV hydration and normalized hemodynamics.
Monitor closely
Monitor for retention
Avoid nephrotoxins including NSAIDs
Over Levophed
Transition to midodrine 10 mg every 8. Monitor BP closely.
Chronic atrial fibrillation, AV block status post pacemaker.
Echo 07/18
1. Low normal left ventricular systolic function. LVEF 52%.
2. Right ventricle is severely dilated with moderately reduced systolic function and septal flattening consistent with RV volume overload.
3. Severe biatrial enlargement.
4. S/p AVR with normal gradients.
5. S/p mitral valve repair with normal gradients and mild residual MR.
6. Dilated aortic root (4.2 cm).
7. Compared to prior echocardiogram, TR has improved from moderate to severe. Otherwise unchanged.
Preadmission regimen including atenolol and digoxin. Currently off.
Continue midodrine avoiding hypotension
Anticoagulation/Coumadin induced coagulopathy: INR down to 2. Resume Coumadin and follow INR daily while on antibiotics.
Mild volume overload without evidence of CHF
Echo as above
Lasix provided on 07/23
Not on diuretics [employer]NER
Monitor volume status closely.
Hypokalemia with repleted potassium.
Mild hyponatremia secondary to above. Monitor
Hypothyroidism on replacement
Dyslipidemia. Reintroduce statin once stable LFTs.
Chronic thrombocytopenia.
Goals of care discussion, patient desired to be full code.
Anticipated Discharge: > 48 hours
Subjective/Interval History
-
Date of Service: July 27, 2025
Objective Data
-
Labs:
Laboratory Results
07/27/25
05:04
WBC 9.0
Hgb 10.0 L
Hct 30.4 L
Plt Count 174
PT 28.8 H
INR 2.67
Sodium 133 L
Potassium 4.3
Chloride 104
Carbon Dioxide 25
BUN 31 H
Creatinine 0.9
Glucose 79
Calcium 7.6 L
Total Bilirubin 3.3 H
AST 39
ALT 28
Alkaline Phosphatase 182 H
Vital Signs:
Vital Signs
Temp Pulse Resp BP Pulse Ox
98.2 F 70 23 118/104 94
07/27/25 12:00 07/27/25 06:00 07/27/25 06:00 07/27/25 06:00 07/27/25 08:37
I&O
07/26/25 07/27/25 07/28/25
06:59 06:59 06:59
Intake Total 1180 / 1180 480 / 480
Output Total 550 / 550
Balance 630 / 630 480 / 480
Physical Exam
-
General: Well Developed and No Apparent Distress
HEENT: Normocephalic, Atraumatic and Moist Mucous Membranes
Respiratory: Clear to Auscultation
Cardiac: Regular Rhythm, S1/S2 and Murmur; Negative Rub or Gallop
GI: Soft, Nontender, Nondistended and Normal Bowel Sounds; Negative Organomegaly
Rectal: Deferred by Provider
Musculoskeletal: No Clubbing, No Cyanosis and Other (Bilateral 2+ lower extremity pitting edema with venous static dermatitis. Left lower extremity with erythema and induration from the ankle to the knee. Dopplerable pedal pulses bilaterally.)
Skin: Negative Rash
Neuro: Nonfocal/Grossly Intact
--- NOTE | 2025-07-27 15:58 | CM ---
Permanent A-Fib, persistent fevers, NICOLE in am, Per cardiology: High risk for surgical procedure or device extraction. Medical management.
IV/Meropenem. Discharge POC: SNF. Referrals previously forwarded. Will need auth.
--- NOTE | 2025-07-27 18:15 | PTCARENOTE ---
Pt received in bed @ 0700. Pt expressing chills. Tachypneic with rigors. Rectal temp of 101.4F obtained. PRN Tylenol administered. Pt with equal strength each hand. Able to follow commands. Pt states he lacks the strength to lift arms to feed
himself. 1:1 feed for all meals. SaO2 95% on room air. Occasional nonproductive cough. 100% V. Paced on cafeteria monitor. MAP > 65. Scheduled Midodrine administered. Pt incontinent of loose moderate bowel movement x2. Additional bowel movement
large soft formed. Pt incontinent morena/orange color urine. Straight cath for urine sample per ID.
[2025-07-27] MEDS: COUMADIN 5 MG PO (19:42)
[2025-07-28] VITALS (17 sets, daily range): BP systolic 93–165; BP diastolic 42–73; PULSE 74–75; O2SAT 94–95; BMI 28.4
--- NOTE | 2025-07-28 | PTCARENOTE ---
Pt feeling hopeless. Supportive care given. NPO after midnight for NICOLE in AM. Discussed current plan in detail with patient, and updated on current health status. Low grade fever, tylenol given as ordered. PM care provided. Will monitor.
[2025-07-28] MEDS: MERREM 500 MG IV ×4 (05:00→22:02)
[2025-07-28] MEDS: SYNTHROID 50 MCG PO (05:06)
[2025-07-28] MEDS: STERILE WATER FOR INJECTION 10 ML IV ×4 (05:07→22:02)
[2025-07-28] MEDS: STERILE WATER FOR INJECTION IV ×3 (05:07→17:15)
[2025-07-28 05:39] LABS: INR 2.74; PT 29.4 Sec (11.4-14.6)
[2025-07-28 05:43] LABS: Hematocrit 29.1 % (39.0-52.0); Hemoglobin 10.4 g/dL (13.0-18.0); Mean Corp Hgb Conc. 35.7 g/dL (33.0-37.0); Mean Corpuscular Volume 92.1 fL (80.0-94.0); Nucleated Red Blood Cells % 0 % (-); Platelet Count 211 10^3/uL (130-400); Red Cell Dist. Width 15.4 % (11.5-14.5)
[2025-07-28 06:02] LABS: Blood Urea Nitrogen 34 mg/dl (9-20); Calcium 7.7 mg/dl (8.4-10.2); Carbon Dioxide 24 mmol/L (22-30); Chloride 104 mmol/L (98-107); Estimated Creatinine Clearance 104 ml/min; Glucose 85 mg/dl (70-99); Potassium 4.7 mmol/L (3.5-5.1); Sodium 132 mmol/L (135-145); eGFR > 60.00
--- NOTE | 2025-07-28 07:35 | PTCARENOTE ---
Report given to director of cath lab. Patient transported for NICOLE.
--- NOTE | 2025-07-28 08:46 | W.PN.ID1 ---
Date of Service
Date of Service: July 28, 2025
Today's Communication
continue meropenem
Assessment / Plan
# Suspect drug rash from cephalosporins
. Improving. Malar erythroderma resolved, Bilateral thigh maculopapular rash improved
# Fever persists
# Leukocytosis resolved
# Severe LLE cellulitis, improving
# Group G streptococcus bacteremia - cellulitis source
# TANA resolved
# Anasarca
# s/p Septic shock due to cellulitis/bacteremia, weaned off pressor
# Acute on chronic thrombocytopenia, resolved
# Elevated LFT's resolved; hyperbilirubinemia stable
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
# PPM
-07/17 CT a/p: fecal impaction
- TTE: no gross vegetations; AVR and MV repair with normal gradients
- 07/23 blood cx's x 2 neg
-07/24 blood cx's x 2 neg
- 07/23 CT LLE with contrast: no abscess/nec fasciitis
- 07/26 CXR marked cardiomegaly, no consolidation
-07/26 ABD US: no steve dil, no cholecystitis
- s/p 3d clindamycin 900mg IV q8 as toxin inhibitor
- s/p ceftriaxone (5d) then switched to IV cefepime, po metronidazole, and po linezolid (d3)
- then s/p cefepime/metronidazole (2d)
- s/p empiric linezolid po(d5) (toxin inhibitor)
- Continue meropenem 500mg IV q6h (d4)
- Trend temps
- Poor prognosis. Pt still wishes full-code.
- No source of persistent fevers to date.
- NICOLE without evidence of relapse of endocarditis
#Conditions present on admission:
HTN
Atrial fibrillation on Coumadin
Complete heart block s/p PPM
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
AV homograft regurgitation s/p bioprosthetic AVR 2014
Thoracic aortic aneurysm
CAD
Hypothyroidism
Chronic thrombocytopenia
Venous stasis
Overactive bladder
Rectal prolapse
Essential tremor
Chronic constipation
Prostate ca (2002) s/p radical prostatectomy, XRT
Right total knee replacement
Chief Complaint
-: Fever, Clinical Sepsis, Cellulitis and Bacteremia
Subjective / Review of Systems
24 hours without a fever
bp stable
Vital Signs / Physical Exam
Vital Signs
Vital Signs
Temp Pulse Resp BP Pulse Ox
97.9 F 71 25 113/57 95
07/28/25 03:00 07/28/25 07:00 07/28/25 07:00 07/28/25 06:00 07/28/25 07:00
Physical Exam
Constitutional: No Acute Distress
Cardiovascular: Regular Rate and S1/S2; Negative Murmur or Rub
Pulmonary: Clear and Symmetric; Negative Wheezes or Rales
Gastrointestinal: Soft, Non Tender, Non Distended and Normal Bowel Sounds
Skin: Warm and Dry; Negative Rash or Jaundice
Wound: Other (the leg wounds are clean no erythema warmth, or drainage)
Objective Data
Lab Data
Lab Results
07/28/25 05:06
07/28/25 05:06
PT 29.4 Sec (11.4-14.6) H 07/28/25 05:06
INR 2.74 07/28/25 05:06
APTT 52.2 Sec (23.4-35.0) H 07/17/25 11:28
Estimated Creat Clear 104 ml/min 07/28/25 05:06
Lactic Acid 1.2 mmol/L (0.7-2.0) 07/23/25 09:58
Total Bilirubin 3.3 mg/dl (0.2-1.3) H 07/27/25 05:04
AST 39 U/L (17-59) 07/27/25 05:04
ALT 28 U/L (0-50) 07/27/25 05:04
Alkaline Phosphatase 182 U/L (38-126) H 07/27/25 05:04
Most recent labs reviewed.
Micro Results:
07/24/25 21:03 Blood Culture - Preliminary
Blood/Venous No Growth in 72 hours- Final report to follow
07/24/25 19:45 Blood Culture - Preliminary
Blood/Venous No Growth in 72 hours- Final report to follow
07/27/25 12:02 Urine Culture - Pending
Urine
07/23/25 10:08 Blood Culture - Preliminary
Blood/Venous No Growth in 4 days- Final report to follow
07/23/25 10:08 Blood Culture - Preliminary
Blood/Venous No Growth in 4 days- Final report to follow
07/17/25 11:33 Blood Culture - Final
Blood/Venous Group G Streptococcus
Gram Stain - Final
07/17/25 11:28 Blood Culture - Final
Blood/Venous Group G Streptococcus
Gram Stain - Final
07/18/25 14:51 Blood Culture - Final
Blood/Venous No Growth - Final Report
07/18/25 14:50 Blood Culture - Final
Blood/Venous No Growth - Final Report
07/17/25 16:46 Salmonella/Shigella Culture - Final
Feces/Stool No Salmonella, Shigella, Aeromonas or Plesiomonas species
isolated.
Campylobacter Culture - Final
No Campylobacter species isolated.
Shiga Toxin Test - Final
No E. coli Shiga Toxin 1 or 2 detected.
07/17/25 11:33 Urine Culture - Final
Urine
07/17/25 16:46 C. difficile GDH Antigen & Toxins - Final
Feces/Stool Negative for toxigenic C.difficile
07/17/25 11:28 Influenza Types A & B ([facility]) - Final
Nasal Swab Negative for Influenza A & B, NAAT
Negative results must be combined with clinical observations
and patient history.
Nucleic Acid Amplification test (NAAT)performed on the
[employer] platform.
07/17/25 CXR: Cardiomegaly. Pulmonary vascularity at least top normal. No focal parenchymal opacification to suggest pneumonia.
07/17/25 CT a/p: Probable complex cyst of the right kidney. Further evaluation with a CT of the kidneys pre- and post-IV contrast or MRI examination recommended. Malignancy not excluded. Increased complexity.
Bilateral subcentimeter hyperdense renal lesions likely benign proteinaceous cysts. New
Tiny nonobstructing bilateral renal stones. New.
Findings suggestive of fecal impaction. Moderate rectal wall thickening. Stercoral colitis cannot excluded. Progressed.
Mild diffuse bladder wall thickening. This can be seen with cystitis or bladder outlet obstruction. Stable
--- NOTE | 2025-07-28 09:30 | PTCARENOTE ---
Patient back from NICOLE. Hemodynamically stable. LLE wound care completed with ID MD at bedside. Morning assessment and medications administered. PT and OT to come to bedside to get patient OOB to chair.
[2025-07-28] MEDS: METAMUCIL, KONSYL PO (10:15)
[2025-07-28] MEDS: PROTONIX 40 MG PO (10:15)
[2025-07-28] MEDS: MIRALAX PO (10:15)
[2025-07-28] MEDS: HYDROPHOR 1 APPLIC TOPICAL (10:16)
--- NOTE | 2025-07-28 10:25 | W.PN.CD ---
Today's Communication / Plan
-
NICOLE done today: no evidence of endocarditis
daughter updated by phone
please call us back with additional questions
Impression / Plan
-
LLE cellulitis, group G strep bacteremia
-NICOLE done today: no evidence of endocarditis
Permanent AFIB on warfarin:
-monitor INR's closely
-off BB/dig for now, rates fine- follow telemetry
-continue warfarin for OAC
Valvular heart disease:
-aortic valve replacement/mitral valve repair/ASD closure 2000 for Endocarditis, then redo AVR 2014
-NICOLE did not show evidence of endocarditis
Pacemaker:
-follow tele
-NICOLE did not show vegetation
Data:
Echo 07/18/25: Low normal left ventricular systolic function. LVEF 52%. Right ventricle is severely dilated with moderately reduced systolic function and septal flattening consistent with RV volume overload. Severe biatrial enlargement. S/p AVR with
normal gradients. S/p mitral valve repair with normal gradients and mild residual MR. Dilated aortic root (4.2 cm). Compared to prior echocardiogram, TR has improved from moderate to severe. Otherwise unchanged.
Physical Exam
Vital Signs/Labs
Vital Signs
Temp Pulse Resp BP Pulse Ox
98.8 F 75 22 110/64 95
07/28/25 09:50 07/28/25 10:15 07/28/25 09:30 07/28/25 10:15 07/28/25 09:30
07/27/25 07/28/25 07/29/25
06:59 06:59 06:59
Actual Weight 104 kg 103.221 kg
07/28/25 05:06
07/28/25 05:06
PT 29.4 Sec (11.4-14.6) H 07/28/25 05:06
INR 2.74 07/28/25 05:06
APTT 52.2 Sec (23.4-35.0) H 07/17/25 11:28
Magnesium 1.9 mg/dl (1.6-2.3) 07/19/25 03:10
Digoxin < 0.4 ng/ml (0.8-2.0) L 07/21/25 05:12
07/19/25
13:48
Xye-C-Almstwlwakg Pept 5360
Physical Exam
Constitutional: No acute distress and Comfortable
EENT: Moist mucous membranes
Cardiovascular: Rhythm & rate is regular, Pedal edema present, JVD present and Systolic murmur present
Respiratory: Respiratory effort normal
Data Reviewed
-
Date of Service: July 28, 2025
EKG: Other (Tele: V paced)
Labs: Labs Reviewed by me
[2025-07-28] MEDS: TYLENOL 650 MG PO ×2 (10:52→17:12)
--- NOTE | 2025-07-28 14:04 | W.PN.HOSP.TC ---
Today's Communication/Plan
-
Continue IV antibiotics per
Monitor temperature curve
Assessment / Plan
Assessment / Plan
Impression:
Severe sepsis with septic shock requiring vasopressors secondary to left lower extremity cellulitis with group G Streptococcus bacteria
Severe left lower extremity cellulitis complicated with chronic venous stasis/dermatitis
Lactic acidosis
Nontraumatic rhabdomyolysis.
TANA
Abnormal LFTs in the settings of septic shock (hyperbilirubinemia/transaminitis)
Hematochezia suspect stercoral colitis and secondary to anticoagulation.
Hypokalemia
Conditions prior to admission:
Chronic atrial fibrillation baseline anticoagulation with warfarin.
History of AV block status post pacemaker
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
History of aortic valve replacement, bioprosthetic complicated with aortic root dissection 2014
Thoracic aortic aneurysm.
Essential hypertension
Essential tremor.
Prostate carcinoma status post radical prostatectomy and radiation 2002.
Hypothyroidism.
Dyslipidemia.
Bilateral hip replacement
Plan
Severe sepsis with septic shock requiring vasopressors secondary to the left lower extremity cellulitis with group G Streptococcus bacteremia.
Imaging with CT scan and clinically ruled out necrotizing fasciitis.
Echocardiogram with no evidence of endocarditis
Bacteremia cleared with repeated blood cultures negative to date.
Afebrile with improved hemodynamics and trending down WBC, resolved lactic acidosis.
Status post clindamycin for toxin inhibition
With persistent fever antibiotics changed to meropenem with empiric Zyvox (toxin admitting for prophy)
Persistent fever while on antibiotics per
Follow-up CT scan 07/31 of the left lower extremity with cellulitis but no evidence of abscess or necrotizing fasciitis
Chest x-ray 04/25 with no infiltrate
Repeat blood cultures negative to date
US of the abdomen (hyperbilirubinemia) with no evidence of acute biliary pathology.
NICOLE 07/28 with no evidence of endocarditis or lead infection
Continue meropenem
Monitor temperature curve
Hematochezia
CT scan on admission 07/17 with evidence of stercoral colitis
Stable hemoglobin indicative of chronic anemia.
Advance to low residue diet
Bowel regimen including MiraLAX.
As there is no evidence of upper GI source transition to oral PPI for prophylaxis.
GI following.
LFTs trending down.
Acute kidney injury
Improved with IV hydration and normalized hemodynamics.
Monitor closely
Monitor for retention
Avoid nephrotoxins including NSAIDs
Over Levophed
Transition to midodrine 10 mg every 8. Monitor BP closely.
Chronic atrial fibrillation, AV block status post pacemaker.
Echo 07/18
1. Low normal left ventricular systolic function. LVEF 52%.
2. Right ventricle is severely dilated with moderately reduced systolic function and septal flattening consistent with RV volume overload.
3. Severe biatrial enlargement.
4. S/p AVR with normal gradients.
5. S/p mitral valve repair with normal gradients and mild residual MR.
6. Dilated aortic root (4.2 cm).
7. Compared to prior echocardiogram, TR has improved from moderate to severe. Otherwise unchanged.
Preadmission regimen including atenolol and digoxin. Currently off.
Continue midodrine avoiding hypotension
Anticoagulation/Coumadin induced coagulopathy: INR down to 2. Resume Coumadin and follow INR daily while on antibiotics.
Mild volume overload without evidence of CHF
Echo as above
Lasix provided on 07/23
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
Monitor volume status closely.
Hypokalemia with repleted potassium.
Mild hyponatremia secondary to above. Monitor
Hypothyroidism on replacement
Dyslipidemia. Reintroduce statin once stable LFTs.
Chronic thrombocytopenia.
Goals of care discussion, patient desired to be full code.
Anticipated Discharge: > 48 hours
Subjective/Interval History
-
Date of Service: July 28, 2025
Objective Data
-
Labs:
Laboratory Results
10/17/25
05:06
WBC 8.5
Hgb 10.4 L
Hct 29.1 L
Plt Count 211 D
PT 29.4 H
INR 2.74
Sodium 132 L
Potassium 4.7
Chloride 104
Carbon Dioxide 24
BUN 34 H
Creatinine 0.7
Glucose 85
Calcium 7.7 L
Vital Signs:
Vital Signs
Temp Pulse Resp BP Pulse Ox
98.5 F 70 25 117/67 95
07/28/25 12:00 07/28/25 13:00 07/28/25 13:00 07/28/25 12:24 07/28/25 12:00
I&O
07/27/25 07/28/25 07/29/25
06:59 06:59 06:59
Intake Total 480 / 480 840 / 840
Output Total 20 / 20
Balance 480 / 480 820 / 820
Physical Exam
-
General: Well Developed and No Apparent Distress
HEENT: Normocephalic, Atraumatic and Moist Mucous Membranes
Respiratory: Clear to Auscultation
Cardiac: Regular Rhythm and S1/S2; Negative Murmur, Rub or Gallop
GI: Soft, Nontender, Nondistended and Normal Bowel Sounds; Negative Organomegaly
Rectal: Deferred by Provider
Musculoskeletal: No Clubbing, No Cyanosis and Other (Left lower extremity with significant edema induration and erythema from ankle to the knee without fluctuance)
Skin: Negative Rash
Neuro: Nonfocal/Grossly Intact
--- NOTE | 2025-07-28 14:40 | CM ---
NICOLE completed today and no evidence of endocarditis, monitoring temperature curve, IV/Meropenem. Discharge POC: SNF. Referrals previously forwarded.
--- NOTE | 2025-07-28 15:00 | PTCARENOTE ---
Moved patient to room 3360 as this room has a ceiling lift/was able to safety transfer patient from chair to bed using ceiling lift.
[2025-07-28] MEDS: COUMADIN 5 MG PO (17:14)
--- NOTE | 2025-07-28 20:58 | PTCARENOTE ---
Patient received in bed. AAOx3 and able to make his needs known. Flat affect. Plan of care for the shift reviewed with the patient. V paced on the monitor. Temp 99. Doppler pulses to bilateral DPs are present. network operations center technician at the bedside. Breath
sounds are CTA. Audible bowel sound. Left leg dressing is intact with small amount of drainage. Edema to bilateral lower extremities L>R. Incontinent. Patient's daughter is at the bedside assisting with feeding him pizza. All needs are met at this
time. Call hager is within reach.
[2025-07-29] VITALS (8 sets, daily range): BP systolic 101–126; BP diastolic 55–84; BMI 28.6
[2025-07-29 03:29] LABS: Hematocrit 29.1 % (39.0-52.0); Hemoglobin 10.5 g/dL (13.0-18.0); Mean Corp Hgb Conc. 36.1 g/dL (33.0-37.0); Mean Corpuscular Volume 91.5 fL (80.0-94.0); Nucleated Red Blood Cells % 0 % (-); Platelet Count 175 10^3/uL (130-400); Red Cell Dist. Width 15.5 % (11.5-14.5)
[2025-07-29 03:51] LABS: INR 3.21; PT 32.7 Sec (11.4-14.6)
[2025-07-29 03:52] LABS: Blood Urea Nitrogen 30 mg/dl (9-20); Calcium 7.7 mg/dl (8.4-10.2); Carbon Dioxide 24 mmol/L (22-30); Chloride 106 mmol/L (98-107); Estimated Creatinine Clearance 104 ml/min; Glucose 92 mg/dl (70-99); Potassium 4.4 mmol/L (3.5-5.1); Sodium 132 mmol/L (135-145); eGFR > 60.00
[2025-07-29] MEDS: MERREM 500 MG IV ×4 (04:00→22:34)
[2025-07-29] MEDS: STERILE WATER FOR INJECTION 10 ML IV ×4 (04:00→22:35)
[2025-07-29] MEDS: SYNTHROID 50 MCG PO (05:24)
[2025-07-29] MEDS: MIRALAX PO (06:52)
--- NOTE | 2025-07-29 07:34 | PTCARENOTE ---
0700 assumed care; patient in bed. AAO x 3 denies pain.
V-P 75; bp via left upper arm: 102/60; on RA
--- NOTE | 2025-07-29 07:49 | W.PN.ID1 ---
Date of Service
Date of Service: July 29, 2025
Today's Communication
Continue antibiotics.
Assessment / Plan
# Suspected drug rash from cephalosporins
. Improving. Malar erythroderma resolved, Bilateral thigh maculopapular rash improved
# Fever; improving
# Leukocytosis resolved
# Severe LLE cellulitis, improving
# Group G streptococcus bacteremia - cellulitis likely source
# TANA resolved
# Anasarca
# s/p Septic shock due to cellulitis/bacteremia, weaned off pressor
# Acute on chronic thrombocytopenia, resolved
# Elevated LFT's resolved; hyperbilirubinemia stable
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
# PPM
-07/17 CT a/p: fecal impaction
- TTE: no gross vegetations; AVR and MV repair with normal gradients
- 07/23 blood cx's x 2 neg
-07/24 blood cx's x 2 neg
- 07/23 CT LLE with contrast: no abscess/nec fasciitis
- 07/26 CXR marked cardiomegaly, no consolidation
-07/26 ABD US: no steve dil, no cholecystitis
- s/p 3d clindamycin 900mg IV q8 as toxin inhibitor
- s/p ceftriaxone (x5d) then switched to IV cefepime, po metronidazole, and po linezolid x5d
- then s/p cefepime/metronidazole (2d)
- s/p empiric linezolid po(d5) (toxin inhibitor)
--> Continue meropenem 500mg IV q6h (d#5)
- Trend temps
- Poor prognosis. Pt wishes full-code.
- No source of persistent fevers to date, although temperature curve seems improved. Continue to follow.
- NICOLE without evidence of relapse of endocarditis
#Conditions present on admission:
HTN
Atrial fibrillation on Coumadin
Complete heart block s/p PPM
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
AV homograft regurgitation s/p bioprosthetic AVR 2014
Thoracic aortic aneurysm
CAD
Hypothyroidism
Chronic thrombocytopenia
Venous stasis
Overactive bladder
Rectal prolapse
Essential tremor
Chronic constipation
Prostate ca (2002) s/p radical prostatectomy, XRT
Right total knee replacement
Chief Complaint
-: Fever, Clinical Sepsis, Cellulitis and Bacteremia
Subjective / Review of Systems
Patient seen and examined. Reports ongoing left leg discomfort, but pain is controlled.
Review of Systems: No Fever and No Chills
Vital Signs / Physical Exam
Vital Signs
Vital Signs
Temp Pulse Resp BP Pulse Ox
98.4 F 72 28 102/60 96
07/29/25 07:36 07/29/25 07:00 07/29/25 07:00 07/29/25 06:00 07/29/25 07:00
Physical Exam
Constitutional: No Acute Distress
Cardiovascular: Regular Rate (Paced) and S1/S2
Pulmonary: Clear, Symmetric and Non Labored; Negative Wheezes or Rales
Gastrointestinal: Soft, Non Tender, Non Distended and Normal Bowel Sounds
Extremities: Edema (4+ left lower extremity), Erythema (Left lower extremity) and Venous Insufficiency (Bilateral lower extremities)
Skin: Warm and Dry; Negative Rash or Jaundice
Wound: Other (the leg wounds are clean no erythema warmth, or drainage)
Neurological: Awake and Alert
Psychological: Calm
Objective Data
Lab Data
Lab Results
07/29/25 03:13
07/29/25 03:13
PT 32.7 Sec (11.4-14.6) H 07/29/25 03:13
INR 3.21 07/29/25 03:13
APTT 52.2 Sec (23.4-35.0) H 07/17/25 11:28
Estimated Creat Clear 104 ml/min 07/29/25 03:13
Lactic Acid 1.2 mmol/L (0.7-2.0) 07/23/25 09:58
Total Bilirubin 3.3 mg/dl (0.2-1.3) H 07/27/25 05:04
AST 39 U/L (17-59) 07/27/25 05:04
ALT 28 U/L (0-50) 07/27/25 05:04
Alkaline Phosphatase 182 U/L (38-126) H 07/27/25 05:04
Most recent labs reviewed.
Micro Results:
07/24/25 21:03 Blood Culture - Preliminary
Blood/Venous No Growth in 4 days- Final report to follow
07/24/25 19:45 Blood Culture - Preliminary
Blood/Venous No Growth in 4 days- Final report to follow
07/23/25 10:08 Blood Culture - Final
Blood/Venous No Growth - Final Report
07/23/25 10:08 Blood Culture - Final
Blood/Venous No Growth - Final Report
07/27/25 12:02 Urine Culture - Final
Urine NO GROWTH
07/17/25 11:33 Blood Culture - Final
Blood/Venous Group G Streptococcus
Gram Stain - Final
07/17/25 11:28 Blood Culture - Final
Blood/Venous Group G Streptococcus
Gram Stain - Final
07/18/25 14:51 Blood Culture - Final
Blood/Venous No Growth - Final Report
07/18/25 14:50 Blood Culture - Final
Blood/Venous No Growth - Final Report
07/17/25 16:46 Salmonella/Shigella Culture - Final
Feces/Stool No Salmonella, Shigella, Aeromonas or Plesiomonas species
isolated.
Campylobacter Culture - Final
No Campylobacter species isolated.
Shiga Toxin Test - Final
No E. coli Shiga Toxin 1 or 2 detected.
07/17/25 11:33 Urine Culture - Final
Urine
07/17/25 16:46 C. difficile GDH Antigen & Toxins - Final
Feces/Stool Negative for toxigenic C.difficile
07/17/25 11:28 Influenza Types A & B ([facility]) - Final
Nasal Swab Negative for Influenza A & B, NAAT
Negative results must be combined with clinical observations
and patient history.
Nucleic Acid Amplification test (NAAT)performed on the
[employer] platform.
Imaging:
07/17/25 CXR: Cardiomegaly. Pulmonary vascularity at least top normal. No focal parenchymal opacification to suggest pneumonia.
07/17/25 CT a/p: Probable complex cyst of the right kidney. Further evaluation with a CT of the kidneys pre- and post-IV contrast or MRI examination recommended. Malignancy not excluded. Increased complexity.
Bilateral subcentimeter hyperdense renal lesions likely benign proteinaceous cysts. New
Tiny nonobstructing bilateral renal stones. New.
Findings suggestive of fecal impaction. Moderate rectal wall thickening. Stercoral colitis cannot excluded. Progressed.
Mild diffuse bladder wall thickening. This can be seen with cystitis or bladder outlet obstruction. Stable
[2025-07-29] MEDS: PROTONIX 40 MG PO (07:54)
[2025-07-29] MEDS: METAMUCIL, KONSYL 1 PACKET PO (07:54)
[2025-07-29] MEDS: HYDROPHOR 1 APPLIC TOPICAL (07:55)
--- NOTE | 2025-07-29 09:19 | W.PN.HOSP.TC ---
Today's Communication/Plan
-
Continue IV antibiotics, transfer to floor
Assessment / Plan
Assessment / Plan
80M with, A-fib, endocarditis s/p AVR, P/W cellulitis of LLE.
LLE cellulitis
severe sepsis with septic shock requiring vasopressors -resolved
group G Streptococcus bacteremia. Repeat Cx NGTD
Imaging with CT scan ruled out necrotizing fasciitis.
NICOLE with no evidence of endocarditis
Received clindamycin and Zyvox for toxin inhibition
ID managing antibiotic, with persistent fever antibiotics changed to meropenem.
Hematochezia
CT scan on admission 07/17 with evidence of stercoral colitis
Stable hemoglobin indicative of chronic anemia.
Advance to low residue diet
Bowel regimen including MiraLAX.
As there is no evidence of upper GI source transition to oral PPI for prophylaxis.
GI signed off
LFTs trending down.
Acute kidney injury resolved
Improved with IV hydration and normalized hemodynamics.
Chronic atrial fibrillation
AV block status post pacemaker.
Preadmission regimen including atenolol and digoxin. Currently off.
Continue midodrine avoiding hypotension
Continue Coumadin and follow INR daily while on antibiotics.
Mild volume overload without evidence of CHF
Echo performed, cardio signed off
Lasix provided on 07/23
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
Monitor volume status closely.
Mild hyponatremia
Mild, persists, asymptomatic.
Hypothyroidism
Synthroid
HLD
Statin
full code.
DVT ppx
warfarin
Anticipated Discharge: > 48 hours
Subjective/Interval History
-
Date of Service: July 29, 2025
Patient denies any acute issues overnight. Discussed care with RN at bedside.
Objective Data
-
Labs:
Laboratory Results
07/29/25
03:13
WBC 8.4
Hgb 10.5 L
Hct 29.1 L
Plt Count 175
PT 32.7 H
INR 3.21
Sodium 132 L
Potassium 4.4
Chloride 106
Carbon Dioxide 24
BUN 30 H
Creatinine 0.7
Glucose 92
Calcium 7.7 L
Vital Signs:
Vital Signs
Temp Pulse Resp BP Pulse Ox
98.4 F 70 28 102/60 96
07/29/25 07:36 07/29/25 07:54 07/29/25 07:00 07/29/25 07:54 07/29/25 07:00
I&O
07/28/25 07/29/25 07/30/25
06:59 06:59 06:59
Intake Total 840 / 840 480 / 480
Output Total / 20
Balance 820 / 820 480 / 480
Review of Systems
-
All other systems: Reviewed and negative
Physical Exam
-
General: No Apparent Distress and Appears Chronically Ill
HEENT: Normocephalic, Atraumatic and Moist Mucous Membranes
Respiratory: Clear to Auscultation
Cardiac: Regular Rhythm and S1/S2; Negative Murmur, Rub or Gallop
GI: Soft, Nontender, Nondistended and Normal Bowel Sounds; Negative Organomegaly
Rectal: Deferred by Provider
Musculoskeletal: No Clubbing, No Cyanosis and Other (Left lower extremity with significant edema induration and erythema from ankle to the knee without fluctuance)
Skin: Rash
Neuro: Awake, Alert and Nonfocal/Grossly Intact
Psych: Calm
Data Reviewed
-
Labs: Labs Reviewed by me
--- NOTE | 2025-07-29 12:55 | PTCARENOTE ---
Transfer 415-1
Pant Transfer to room 415-1 via bed as telemetry level of care. Report given to 4th floor nurse (Isabella) Daughter and at bedside, made aware
At time of transfer patient AAO x 3
V-P on telemetry; BP stable.
on RA No sob 96%Pox
abdomen soft round . Incontinent of bowel x 2 BM today
incontinent of urine.
Peripheral line: Rt and Left flushed
skin: left leg cellulitis TX done per order pedal pulses present via doppler
[2025-07-29] MEDS: TYLENOL 650 MG PO (15:20)
[2025-07-29] MEDS: COUMADIN 4 MG PO (15:21)
[2025-07-30 03:00] VITALS: BP 121/56
[2025-07-30] MEDS: STERILE WATER FOR INJECTION 10 ML IV ×4 (03:16→21:47)
[2025-07-30] MEDS: MERREM 500 MG IV ×4 (03:16→21:47)
[2025-07-30] MEDS: SYNTHROID 50 MCG PO (05:18)
[2025-07-30 06:46] LABS: INR 3.25; PT 32.9 Sec (11.4-14.6)
[2025-07-30 07:30] VITALS: BP 119/67
[2025-07-30] MEDS: METAMUCIL, KONSYL 1 PACKET PO (07:50)
[2025-07-30] MEDS: MIRALAX PO (07:50)
[2025-07-30] MEDS: PROTONIX 40 MG PO (07:50)
[2025-07-30] MEDS: HYDROPHOR 1 APPLIC TOPICAL (07:55)
--- NOTE | 2025-07-30 08:36 | CM ---
CM reviewed chart, care ongoing.
Patient will require SNF upon d/c- referrals placed to [facility] (no response), [facility] (declined- no bed), [facility] (accept pending bed availability). Will require auth when stable.
Patient remains on IV antibiotics.
Will need to follow up with facilities Thursday to see which facility has bed availability.
CM will continue to follow.
Plan; SNF pending accepting facility, auth required.
[2025-07-30 11:30] VITALS: BP 108/59
--- NOTE | 2025-07-30 13:41 | W.PN.HOSP.TC ---
Today's Communication/Plan
-
Continue IV antibiotics, pending ID rec for duration
SNF on discharge
Assessment / Plan
Assessment / Plan
80M with, A-fib, endocarditis s/p AVR, P/W cellulitis of LLE.
LLE cellulitis
severe sepsis with septic shock requiring vasopressors -resolved
group G Streptococcus bacteremia. Repeat Cx NGTD
Imaging with CT scan ruled out necrotizing fasciitis.
NICOLE with no evidence of endocarditis
Received clindamycin and Zyvox for toxin inhibition
ID managing antibiotic. With persistent fever, antibiotics changed to meropenem.
Hematochezia - resolved
CT scan on admission 07/17 with evidence of stercoral colitis
Stable hemoglobin indicative of chronic anemia.
Advance to regular diet
Bowel regimen including MiraLAX.
As there is no evidence of upper GI source, transition to oral PPI for prophylaxis.
GI signed off
LFTs trending down.
Acute kidney injury- resolved
Improved with IV hydration and normalized hemodynamics.
Chronic atrial fibrillation
AV block status post pacemaker.
Preadmission regimen including atenolol and digoxin. Currently off.
Continue midodrine avoiding hypotension
Continue Coumadin and follow INR daily while on antibiotics.
Mild volume overload without evidence of CHF
Echo performed, cardio signed off
LE edema
Lasix provided on 07/23
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
Monitor volume status closely.
Mild hyponatremia
Mild, persists, asymptomatic.
Hypothyroidism
Synthroid
HLD
Statin
full code.
DVT ppx
warfarin
Anticipated Discharge: 24 - 48 hours
Subjective/Interval History
-
Date of Service: July 30, 2025
Patient denies any acute issues overnight
Objective Data
-
Labs:
Laboratory Results
07/30/25
05:30
PT 32.9 H
INR 3.25
Vital Signs:
Vital Signs
Temp Pulse Resp BP Pulse Ox
98.6 F 73 16 108/59 94
07/30/25 11:30 07/30/25 11:30 07/30/25 11:30 07/30/25 11:30 07/30/25 11:30
I&O
07/29/25 07/30/25 07/31/25
06:59 06:59 06:59
Intake Total 480 / 480 720 / 720
Balance 480 / 480 720 / 720
Review of Systems
-
All other systems: Reviewed and negative
Physical Exam
-
General: No Apparent Distress and Appears Chronically Ill
HEENT: Normocephalic, Atraumatic and Moist Mucous Membranes
Respiratory: Clear to Auscultation
Cardiac: Regular Rhythm and S1/S2; Negative Murmur, Rub or Gallop
GI: Soft, Nontender, Nondistended and Normal Bowel Sounds; Negative Organomegaly
Musculoskeletal: No Clubbing, No Cyanosis and Other (Left lower extremity with significant edema induration and erythema from ankle to the knee without fluctuance)
Skin: Rash
Neuro: Awake, Alert and Nonfocal/Grossly Intact
Psych: Calm
Data Reviewed
-
Labs: Labs Reviewed by me
[2025-07-30 15:30] VITALS: BP 107/53
[2025-07-30] MEDS: COUMADIN 4 MG PO (16:43)
[2025-07-30 19:12] VITALS: BP 111/62
[2025-07-30 23:00] VITALS: BP 101/57
[2025-07-31 03:00] VITALS: BP 93/52
[2025-07-31] MEDS: SYNTHROID 50 MCG PO (05:02)
[2025-07-31] MEDS: STERILE WATER FOR INJECTION 10 ML IV ×2 (05:02→07:37)
[2025-07-31] MEDS: MERREM 500 MG IV ×2 (05:02→07:38)
[2025-07-31 06:55] LABS: Hematocrit 29.9 % (39.0-52.0); Hemoglobin 9.6 g/dL (13.0-18.0); Mean Corp Hgb Conc. 32.1 g/dL (33.0-37.0); Mean Corpuscular Volume 97.4 fL (80.0-94.0); Nucleated Red Blood Cells % 0 % (-); Platelet Count 155 10^3/uL (130-400); Red Cell Dist. Width 15.7 % (11.5-14.5)
[2025-07-31 06:59] LABS: INR 3.06; PT 31.5 Sec (11.4-14.6)
[2025-07-31 07:00] VITALS: BP 114/67
[2025-07-31 07:13] LABS: Blood Urea Nitrogen 25 mg/dl (9-20); Calcium 7.9 mg/dl (8.4-10.2); Carbon Dioxide 25 mmol/L (22-30); Chloride 104 mmol/L (98-107); Estimated Creatinine Clearance 104 ml/min; Glucose 81 mg/dl (70-99); Potassium 4.3 mmol/L (3.5-5.1); Sodium 131 mmol/L (135-145); eGFR > 60.00
[2025-07-31] MEDS: HYDROPHOR 1 APPLIC TOPICAL (07:36)
[2025-07-31] MEDS: PROTONIX 40 MG PO (07:38)
[2025-07-31] MEDS: MIRALAX PO (07:39)
[2025-07-31] MEDS: METAMUCIL, KONSYL 1 PACKET PO (07:39)
--- NOTE | 2025-07-31 09:17 | W.PN.HOSP.TC ---
Addendum entered and electronically signed by Alex Kent MD 07/31/25 16:46:
Discussed with over the phone today.
Original Note:
Today's Communication/Plan
-
Antibiotics. Discharge disposition
Assessment / Plan
Assessment / Plan
Physical exam:
General: Acutely ill
HEENT: Normocephalic, Atraumatic and Moist Mucous Membranes
Respiratory: Clear to Auscultation; Negative Wheezes, Rales or Rhonchi
Cardiac: Regular Rhythm and S1/S2
GI: Soft, Nontender and Nondistended
Skin: Left lower extremity erythema and wounds improved substantially and residual edema remains. Mild tenderness.
Musculoskeletal: No Clubbing, No Cyanosis and No Edema
Neuro: Awake, Alert and Oriented, no neurological deficit
Psych: Calm
A/P:
Septic shock due to Streptococcus G bacteremia and left lower extremity cellulitis:
Improved clinically
On IV meropenem (had received multiple courses of different antibiotics)
ID on board and would like to stop antibiotics today and observe
NICOLE no evidence of endocarditis and CT scan no evidence of necrotizing fasciitis.
Latest blood cultures no growth
Pain control with Tylenol, Oxy oral and IV Dilaudid as needed
PT OT eval for discharge disposition
Hematochezia due to GI bleed in the setting of supratherapeutic INR:
Resolved and GI evaluated the patient.
On oral PPI and Metamucil and MiraLAX
Back on warfarin without further bleeding.
Permanent A-fib:
Pacemaker from AV block
Off rate control agents for more than 2 weeks and has not required anything
Continue anticoagulation with warfarin 4 mg daily; INR 3.06 today
Orthostatic hypotension:
On midodrine 10 mg p.o. every 8 hours
TANA due to ATN:
Back to baseline after treatment of infection and fluid
Volume overload without evidence of CHF:
IV Lasix given during initial period of hospitalization but has not required any longer
Hypokalemia:
Repleted appropriately
Metabolic acidosis:
Resolved
Rhabdomyolysis:
Resolved
Hypothyroidism:
Continue levothyroxine 50 mcg p.o. daily
Thrombocytopenia:
Resolved
Transaminitis:
Improved
Coagulopathy with supratherapeutic INR:
Resolved
Hyponatremia:
Improved
Other medical problems:
Hypertension
Hyperlipidemia
Chronic venous stasis changes
Overreactive bladder
Rectal prolapse
Essential tremor
Constipation
Prostate cancer status post radical prostatectomy and radiation
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
History of thoracic aortic aneurysm
Complete heart block status post pacemaker
DVT prophylaxis:
On warfarin
Total time spent on today's encounter was 35 minutes which included time spent in counseling the patient/family regarding diagnosis and treatment plan as listed above, goals of care, and symptom management. Case was discussed with nursing staff,
specialists, and care coordinators/case management. All labs and imaging personally reviewed by me. Remainder the time spent in detailed review of previous records, lab data, imaging, and other medical provider documentation.
Anticipated Discharge: 24 - 48 hours
Subjective/Interval History
-
Date of Service: July 31, 2025
Objective Data
-
Labs:
Laboratory Results
07/31/25
06:11
WBC 7.5
Hgb 9.6 L
Hct 29.9 L
Plt Count 155
PT 31.5 H
INR 3.06
Sodium 131 L
Potassium 4.3
Chloride 104
Carbon Dioxide 25
BUN 25 H
Creatinine 0.7
Glucose 81
Calcium 7.9 L
Vital Signs:
Vital Signs
Temp Pulse Resp BP Pulse Ox
97.8 F 74 17 114/67 97
07/31/25 07:00 07/31/25 07:00 07/31/25 07:00 07/31/25 07:00 07/31/25 07:00
I&O
07/30/25 07/31/25 08/01/25
06:59 06:59 06:59
Intake Total 720 / 720 900 / 900
Output Total 1999 / 1999
Balance 720 / 720 -1100 / -1100
[2025-07-31 10:40] VITALS: BP 115/65; PULSE 75; O2SAT 97
--- NOTE | 2025-07-31 11:10 | W.PN.ID1 ---
Date of Service
Date of Service: July 31, 2025
Today's Communication
--> stop meropenem 500mg IV q6h (d#7) has completed an aggressive course of IV antibiotics and is clinically improved
Assessment / Plan
# Suspected drug rash from cephalosporins
. Improving. Malar erythroderma resolved, Bilateral thigh maculopapular rash improved
# Fever; improving
# Leukocytosis resolved
# Severe LLE cellulitis, improving
# Group G streptococcus bacteremia - cellulitis likely source
# TANA resolved
# Anasarca
# s/p Septic shock due to cellulitis/bacteremia, weaned off pressor
# Acute on chronic thrombocytopenia, resolved
# Elevated LFT's resolved; hyperbilirubinemia stable
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
# PPM
-07/17 CT a/p: fecal impaction
- TTE: no gross vegetations; AVR and MV repair with normal gradients
- 07/23 blood cx's x 2 neg
-07/24 blood cx's x 2 neg
- 07/23 CT LLE with contrast: no abscess/nec fasciitis
- 07/26 CXR marked cardiomegaly, no consolidation
-07/26 ABD US: no steve dil, no cholecystitis
- s/p 3d clindamycin 900mg IV q8 as toxin inhibitor
- s/p ceftriaxone (x5d) then switched to IV cefepime, po metronidazole, and po linezolid x5d
- then s/p cefepime/metronidazole (2d)
- s/p empiric linezolid po(d5) (toxin inhibitor)
--> stop meropenem 500mg IV q6h (d#7) has completed an aggressive course of IV antibiotics and is clinically improved
#Conditions present on admission:
HTN
Atrial fibrillation on Coumadin
Complete heart block s/p PPM
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
AV homograft regurgitation s/p bioprosthetic AVR 2014
Thoracic aortic aneurysm
CAD
Hypothyroidism
Chronic thrombocytopenia
Venous stasis
Overactive bladder
Rectal prolapse
Essential tremor
Chronic constipation
Prostate ca (2002) s/p radical prostatectomy, XRT
Right total knee replacement
Chief Complaint
-: Fever, Cellulitis and Bacteremia
Subjective / Review of Systems
afebrile x 4 days
BP stable
without leukocytosis x 5 days
Vital Signs / Physical Exam
Vital Signs
Vital Signs
Temp Pulse Resp BP Pulse Ox
97.8 F 74 17 114/67 97
07/31/25 07:00 07/31/25 07:00 07/31/25 07:00 07/31/25 07:00 07/31/25 07:00
Physical Exam
Constitutional: No Acute Distress
Cardiovascular: Regular Rate and S1/S2; Negative Murmur or Rub
Pulmonary: Clear and Symmetric; Negative Wheezes or Rales
Gastrointestinal: Soft, Non Tender, Non Distended and Normal Bowel Sounds
Skin: Warm and Dry; Negative Rash or Jaundice
Objective Data
Lab Data
Lab Results
07/31/25 06:11
07/31/25 06:11
PT 31.5 Sec (11.4-14.6) H 07/31/25 06:11
INR 3.06 07/31/25 06:11
APTT 52.2 Sec (23.4-35.0) H 07/17/25 11:28
Estimated Creat Clear 104 ml/min 07/31/25 06:11
Lactic Acid 1.2 mmol/L (0.7-2.0) 07/23/25 09:58
Total Bilirubin 3.3 mg/dl (0.2-1.3) H 07/27/25 05:04
AST 39 U/L (17-59) 07/27/25 05:04
ALT 28 U/L (0-50) 07/27/25 05:04
Alkaline Phosphatase 182 U/L (38-126) H 07/27/25 05:04
Most recent labs reviewed.
Micro Results:
07/24/25 21:03 Blood Culture - Final
Blood/Venous No Growth - Final Report
07/24/25 19:45 Blood Culture - Final
Blood/Venous No Growth - Final Report
07/23/25 10:08 Blood Culture - Final
Blood/Venous No Growth - Final Report
07/23/25 10:08 Blood Culture - Final
Blood/Venous No Growth - Final Report
07/27/25 12:02 Urine Culture - Final
Urine NO GROWTH
07/17/25 11:33 Blood Culture - Final
Blood/Venous Group G Streptococcus
Gram Stain - Final
07/17/25 11:28 Blood Culture - Final
Blood/Venous Group G Streptococcus
Gram Stain - Final
07/18/25 14:51 Blood Culture - Final
Blood/Venous No Growth - Final Report
07/18/25 14:50 Blood Culture - Final
Blood/Venous No Growth - Final Report
07/17/25 16:46 Salmonella/Shigella Culture - Final
Feces/Stool No Salmonella, Shigella, Aeromonas or Plesiomonas species
isolated.
Campylobacter Culture - Final
No Campylobacter species isolated.
Shiga Toxin Test - Final
No E. coli Shiga Toxin 1 or 2 detected.
07/17/25 11:33 Urine Culture - Final
Urine
07/17/25 16:46 C. difficile GDH Antigen & Toxins - Final
Feces/Stool Negative for toxigenic C.difficile
07/17/25 11:28 Influenza Types A & B ([facility]IS) - Final
Nasal Swab Negative for Influenza A & B, NAAT
Negative results must be combined with clinical observations
and patient history.
Nucleic Acid Amplification test (NAAT)performed on the
[employer] 2 platform.
Imaging:
07/17/25 CXR: Cardiomegaly. Pulmonary vascularity at least top normal. No focal parenchymal opacification to suggest pneumonia.
07/17/25 CT a/p: Probable complex cyst of the right kidney. Further evaluation with a CT of the kidneys pre- and post-IV contrast or MRI examination recommended. Malignancy not excluded. Increased complexity.
Bilateral subcentimeter hyperdense renal lesions likely benign proteinaceous cysts. New
Tiny nonobstructing bilateral renal stones. New.
Findings suggestive of fecal impaction. Moderate rectal wall thickening. Stercoral colitis cannot excluded. Progressed.
Mild diffuse bladder wall thickening. This can be seen with cystitis or bladder outlet obstruction. Stable
[2025-07-31] MEDS: ANTIFUNGAL CLEAR 1 APPLIC TOPICAL ×2 (11:22→20:33)
[2025-07-31 11:38] VITALS: BP 115/65; PULSE 75; O2SAT 97
[2025-07-31] MEDS: ROXICODONE 5 MG PO (14:16)
[2025-07-31 15:30] VITALS: BP 132/76
[2025-07-31] MEDS: TYLENOL 650 MG PO (16:22)
[2025-07-31] MEDS: COUMADIN 4 MG PO (16:23)
[2025-07-31 23:07] VITALS: BP 104/63
[2025-08-01] MEDS: SYNTHROID 50 MCG PO (05:05)
[2025-08-01 07:00] VITALS: BP 110/59
[2025-08-01 07:09] LABS: Hematocrit 27.6 % (39.0-52.0); Hemoglobin 9.1 g/dL (13.0-18.0); Mean Corp Hgb Conc. 33.0 g/dL (33.0-37.0); Mean Corpuscular Volume 96.5 fL (80.0-94.0); Nucleated Red Blood Cells % 0 % (-); Platelet Count 162 10^3/uL (130-400); Red Cell Dist. Width 15.3 % (11.5-14.5)
[2025-08-01 07:12] LABS: INR 3.39; PT 34.0 Sec (11.4-14.6)
[2025-08-01 07:36] LABS: Blood Urea Nitrogen 22 mg/dl (9-20); Calcium 7.7 mg/dl (8.4-10.2); Carbon Dioxide 25 mmol/L (22-30); Chloride 106 mmol/L (98-107); Estimated Creatinine Clearance 121 ml/min; Glucose 80 mg/dl (70-99); Potassium 4.2 mmol/L (3.5-5.1); Sodium 131 mmol/L (135-145); eGFR > 60.00
[2025-08-01] MEDS: MIRALAX 17 GRAMS PO (09:21)
[2025-08-01] MEDS: METAMUCIL, KONSYL 1 PACKET PO (09:21)
[2025-08-01] MEDS: PROTONIX 40 MG PO (09:22)
[2025-08-01] MEDS: HYDROPHOR 1 APPLIC TOPICAL (09:23)
[2025-08-01] MEDS: ANTIFUNGAL CLEAR 1 APPLIC TOPICAL ×2 (09:24→19:38)
--- NOTE | 2025-08-01 11:39 | W.PN.HOSP.TC ---
Today's Communication/Plan
-
Restarted IV antibiotics. Fever workup.
Assessment / Plan
Assessment / Plan
Physical exam:
General: Acutely ill
HEENT: Normocephalic, Atraumatic and Moist Mucous Membranes
Respiratory: Clear to Auscultation; Negative Wheezes, Rales or Rhonchi
Cardiac: Regular Rhythm and S1/S2
GI: Soft, Nontender and Nondistended
Skin: Left lower extremity erythema and wounds improved substantially and residual edema remains. Mild tenderness.
Musculoskeletal: No Clubbing, No Cyanosis and No Edema
Neuro: Awake, Alert and Oriented, no neurological deficit
Psych: Calm
A/P:
Septic shock due to Streptococcus G bacteremia and left lower extremity cellulitis:
Improved clinically but recurrence of fevers so ID is restarting IV meropenem today and proceeding to do fever of unknown origin workup (had received multiple courses of different antibiotics)
Discussed with ID in person today
NICOLE no evidence of endocarditis and CT scan no evidence of necrotizing fasciitis.
Latest blood cultures no growth
Pain control with Tylenol, Oxy oral and IV Dilaudid as needed
PT OT eval for discharge disposition
Hematochezia due to GI bleed in the setting of supratherapeutic INR:
Resolved and GI evaluated the patient.
On oral PPI and Metamucil and MiraLAX
Back on warfarin without further bleeding.
Permanent A-fib:
Pacemaker from AV block
Off rate control agents for more than 2 weeks and has not required anything
Continue anticoagulation with warfarin 4 mg daily; INR 3.06 today
Orthostatic hypotension:
On midodrine 10 mg p.o. every 8 hours
TANA due to ATN:
Back to baseline after treatment of infection and fluid
Volume overload without evidence of CHF:
IV Lasix given during initial period of hospitalization but has not required any longer
Hypokalemia:
Repleted appropriately
Metabolic acidosis:
Resolved
Rhabdomyolysis:
Resolved
Hypothyroidism:
Continue levothyroxine 50 mcg p.o. daily
Thrombocytopenia:
Resolved
Transaminitis:
Improved
Coagulopathy with supratherapeutic INR:
Resolved
Hyponatremia:
Improved
Other medical problems:
Hypertension
Hyperlipidemia
Chronic venous stasis changes
Overreactive bladder
Rectal prolapse
Essential tremor
Constipation
Prostate cancer status post radical prostatectomy and radiation
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
History of thoracic aortic aneurysm
Complete heart block status post pacemaker
DVT prophylaxis:
On warfarin
Total time spent on today's encounter was 52 minutes which included time spent in counseling the patient/family regarding diagnosis and treatment plan as listed above, goals of care, and symptom management. Case was discussed with nursing staff,
specialists, and care coordinators/case management. All labs and imaging personally reviewed by me. Remainder the time spent in detailed review of previous records, lab data, imaging, and other medical provider documentation.
Anticipated Discharge: 24 - 48 hours
Subjective/Interval History
-
Date of Service: August 01, 2025
Patient started to have fevers again yesterday. No nausea or vomiting. Afebrile today
Objective Data
-
Labs:
Laboratory Results
08/01/25
06:35
WBC 6.2
Hgb 9.1 L
Hct 27.6 L
Plt Count 162
PT 34.0 H
INR 3.39
Sodium 131 L
Potassium 4.2
Chloride 106
Carbon Dioxide 25
BUN 22 H
Creatinine 0.6 L
Glucose 80
Calcium 7.7 L
Vital Signs:
Vital Signs
Temp Pulse Resp BP Pulse Ox
98.3 F 76 18 110/59 95
08/01/25 07:00 08/01/25 07:00 08/01/25 07:00 08/01/25 07:00 08/01/25 07:00
I&O
07/31/25 08/01/25 08/02/25
06:59 06:59 06:59
Intake Total 900 / 900 600 / 600
Output Total 1999 / 1999
Balance -1100 / -1100 600 / 600
--- NOTE | 2025-08-01 11:41 | W.PN.ID1 ---
Addendum entered and electronically signed by Pastora Hermosillo MD 08/01/25 14:40:
wound culture also done
Addendum entered and electronically signed by Pastora Hermosillo MD 08/01/25 14:39:
contacted by wound care with concern for possible abscess of the distal leg, area is mildly fluctuant and draining blood, will order US to further assess.
Original Note:
Date of Service
Date of Service: August 01, 2025
Today's Communication
restart meropenem
FUO work up
Assessment / Plan
# Suspected drug rash from cephalosporins
. Improving. Malar erythroderma resolved, Bilateral thigh maculopapular rash improved
# Fever; improving
# Leukocytosis resolved
# Severe LLE cellulitis, improving
# Group G streptococcus bacteremia - cellulitis likely source
# TANA resolved
# Anasarca
# s/p Septic shock due to cellulitis/bacteremia, weaned off pressor
# Acute on chronic thrombocytopenia, resolved
# Elevated LFT's resolved; hyperbilirubinemia stable
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
# PPM
-07/17 CT a/p: fecal impaction
- TTE: no gross vegetations; AVR and MV repair with normal gradients
- 07/23 blood cx's x 2 neg
-07/24 blood cx's x 2 neg
- 07/23 CT LLE with contrast: no abscess/nec fasciitis
- 07/26 CXR marked cardiomegaly, no consolidation
-07/26 ABD US: no steve dil, no cholecystitis
- s/p 3d clindamycin 900mg IV q8 as toxin inhibitor
- s/p ceftriaxone (x5d) then switched to IV cefepime, po metronidazole, and po linezolid x5d
- then s/p cefepime/metronidazole (2d)
- s/p empiric linezolid po(d5) (toxin inhibitor)
# FUO
- KVNG
- RF
- babesia smear
- ESR
- CRP
- ferritin
- restart meropenem as clinically he seems to have responded to this therapy
- follow clinically
#Conditions present on admission:
HTN
Atrial fibrillation on Coumadin
Complete heart block s/p PPM
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
AV homograft regurgitation s/p bioprosthetic AVR 2014
Thoracic aortic aneurysm
CAD
Hypothyroidism
Chronic thrombocytopenia
Venous stasis
Overactive bladder
Rectal prolapse
Essential tremor
Chronic constipation
Prostate ca (2002) s/p radical prostatectomy, XRT
Right total knee replacement
Chief Complaint
-: Fever, Cellulitis and Bacteremia
Subjective / Review of Systems
relapse of fever which correlated with cessation of meropenem
BP stable
no headaches, sinus tendnernss, sore throat, cough, sputum production, nausea, vomiting, diarrhea, constipation, new rashes, joint pains or tendnerness over PIVs
He was not aware that he was febrile last night
only complaint is tendnerness in the L leg
Vital Signs / Physical Exam
Vital Signs
Vital Signs
Temp Pulse Resp BP Pulse Ox
98.3 F 76 18 110/59 95
08/01/25 07:00 08/01/25 07:00 08/01/25 07:00 08/01/25 07:00 08/01/25 07:00
Physical Exam
Constitutional: No Acute Distress
Cardiovascular: Regular Rate and S1/S2; Negative Murmur or Rub
Pulmonary: Clear and Symmetric; Negative Wheezes or Rales
Gastrointestinal: Soft, Non Tender, Non Distended and Normal Bowel Sounds
Skin: Warm and Dry; Negative Rash or Jaundice
Objective Data
Lab Data
Lab Results
08/01/25 06:35
08/01/25 06:35
PT 34.0 Sec (11.4-14.6) H 08/01/25 06:35
INR 3.39 08/01/25 06:35
APTT 52.2 Sec (23.4-35.0) H 07/17/25 11:28
Estimated Creat Clear 121 ml/min 08/01/25 06:35
Lactic Acid 1.2 mmol/L (0.7-2.0) 07/23/25 09:58
Total Bilirubin 3.3 mg/dl (0.2-1.3) H 07/27/25 05:04
AST 39 U/L (17-59) 07/27/25 05:04
ALT 28 U/L (0-50) 07/27/25 05:04
Alkaline Phosphatase 182 U/L (38-126) H 07/27/25 05:04
Most recent labs reviewed.
Micro Results:
07/24/25 21:03 Blood Culture - Final
Blood/Venous No Growth - Final Report
07/24/25 19:45 Blood Culture - Final
Blood/Venous No Growth - Final Report
07/23/25 10:08 Blood Culture - Final
Blood/Venous No Growth - Final Report
07/23/25 10:08 Blood Culture - Final
Blood/Venous No Growth - Final Report
07/27/25 12:02 Urine Culture - Final
Urine NO GROWTH
07/17/25 11:33 Blood Culture - Final
Blood/Venous Group G Streptococcus
Gram Stain - Final
07/17/25 11:28 Blood Culture - Final
Blood/Venous Group G Streptococcus
Gram Stain - Final
07/18/25 14:51 Blood Culture - Final
Blood/Venous No Growth - Final Report
07/18/25 14:50 Blood Culture - Final
Blood/Venous No Growth - Final Report
07/17/25 16:46 Salmonella/Shigella Culture - Final
Feces/Stool No Salmonella, Shigella, Aeromonas or Plesiomonas species
isolated.
Campylobacter Culture - Final
No Campylobacter species isolated.
Shiga Toxin Test - Final
No E. coli Shiga Toxin 1 or 2 detected.
07/17/25 11:33 Urine Culture - Final
Urine
07/17/25 16:46 C. difficile GDH Antigen & Toxins - Final
Feces/Stool Negative for toxigenic C.difficile
07/17/25 11:28 Influenza Types A & B ([facility]IS) - Final
Nasal Swab Negative for Influenza A & B, NAAT
Negative results must be combined with clinical observations
and patient history.
Nucleic Acid Amplification test (NAAT)performed on the
[employer] platform.
Imaging:
07/17/25 CXR: Cardiomegaly. Pulmonary vascularity at least top normal. No focal parenchymal opacification to suggest pneumonia.
07/17/25 CT a/p: Probable complex cyst of the right kidney. Further evaluation with a CT of the kidneys pre- and post-IV contrast or MRI examination recommended. Malignancy not excluded. Increased complexity.
Bilateral subcentimeter hyperdense renal lesions likely benign proteinaceous cysts. New
Tiny nonobstructing bilateral renal stones. New.
Findings suggestive of fecal impaction. Moderate rectal wall thickening. Stercoral colitis cannot excluded. Progressed.
Mild diffuse bladder wall thickening. This can be seen with cystitis or bladder outlet obstruction. Stable
[2025-08-01 12:49] LABS: C-Reactive Protein 69.80 mg/L (0.0-10.00)
[2025-08-01] MEDS: MERREM 500 MG IV ×3 (12:58→23:20)
[2025-08-01] MEDS: STERILE WATER FOR INJECTION 10 ML IV ×3 (12:59→23:20)
[2025-08-01] MEDS: FLUSH (NSS) 1 FLUSH IV (13:01)
[2025-08-01 13:24] LABS: Ferritin 374.0 ng/ml (17.9-464.0)
--- NOTE | 2025-08-01 13:39 | WOUNDNOTE ---
SACRUM AND L UPPER BUTTOCK
--- NOTE | 2025-08-01 13:55 | WOUNDNOTE ---
L LOWER MEDIAL LEG OF MR ORTIZ 47
--- NOTE | 2025-08-01 13:58 | WOUNDNOTE ---
L MEDIAL LOWER LEG, MR ORTIZ 49
--- NOTE | 2025-08-01 14:00 | VATNOTE ---
COLLEEN RN NOTE: Followed up today with assist of nurse Woodard. Patient turned to sides, patient tries to help but is weak. Incontinent of moderate amt of soft brown stool an large amts of urine. Recommended male PureWick for incontinence to nurse. L upper
sacrum/buttocks with dark maroon patch of skin, evolving DTI. Silicone foam dressing changed. On Accumax bed with turning schedule. Patient reports when he sits in chair is uncomfortable. Air cushion in use on chair. Called Bed tech Rohan for [facility] air bed, nurse Woodard aware to switch bed. Heel foams changed, heels remain intact and pillows in use under calves. R leg has healed, no open wounds. L leg remains discolored with 2-3+ edema, + pedal pulses and warm. Distal L medial leg with 2
raised draining small ulcers, suspect abscess. Proximal opening, blood clot removed upon cleaning and moderate bloody drainage. Bleeding stopped with direct pressure. L medial distal area with small opening, draining moderate amt of pus. Wound
culture done at bedside, nurse aware and will send to lab. Local wound care applied and jenni wrap knee high. Leg elevated with 2 pillows. Encouraged leg elevation when oob and increase protein in diet. Updated Dr. Kent on the above and recommended
ultrasound to rule out abscess. Approved of change in wound care, compression and wound culture. Will defer to hospitalist regarding ultrasound. Will update care plan, nurse and follow as needed.
--- NOTE | 2025-08-01 14:00 | WOUNDNOTE ---
WON RN NOTE: Followed up today with assist of nurse. R leg healed, dry skin, moisturized legs with mineral oil. L leg remains swollen, distal medial lower leg with 2 small draining raised ulcers. When cleaning proximal wound, able to express clot of
blood then moderate sanguineous drainage, stopped with pressure. Distal L lower medial leg with small opening, moderate amt of pus expressed when cleaning. Swab culture done, nurse Yamilet aware and will send to lab. Showed Dr. Kent pictures of L leg,
suspected small abscesses, approved wound culture and recommended ultrasound. Dry dressing applied with adaptic, alginate, abd pad and kerlix. Akbar wrap knee high applied. Turned patient with assist of nurse Yamilet, patient very weak but attempts to
assist. L upper buttock with evolving DTI, foams applied. Heel foams removed and heels remain intact. Called Bed tech Rohan for a versa [facility] air bed, nurse aware to switch bed. Nurse reports he was on an [employer]vanta bed and switched to Accumax this
morning. Has gotten out of bed to chair but reports is uncomfortable. Appetite is fair, encouraged protein in diet. Repositioned patient onto R semi side lying position. Air cushion on pillows under calves. Leg elevation. Pressure ulcer prevention
measures reviewed with patient, turning schedule maintained. Will update wound care orders, care plan and follow as needed.
[2025-08-01 14:51] VITALS: BP 103/53
--- NOTE | 2025-08-01 15:28 | CM ---
Chart reviewed. Plan is for SNF at d/c. Confirmed w/ spouse that her preferred choice is [facility]. Updates sent to all facilities in [place] as some declined due to no beds however that was last week and is inquiring bed availability for this
week.
IV abx restarted. Fever work up
Patient will need insurance auth prior to d/c
Plan: SNF
[2025-08-01 23:03] VITALS: BP 105/59
--- NOTE | 2025-08-02 02:29 | DOWNTIME ---
There was a [employer] Downtime on 08/02/2025 from 0100 to 08/02/2025 at 0215. Downtime documentation of patient's care, including medication administrations, has been reconciled in the electronic record per guidelines. Refer to the
patient's paper chart under the miscellaneous tab to see printed paper medication records and downtime forms.
[2025-08-02] MEDS: SYNTHROID 50 MCG PO (05:07)
[2025-08-02] MEDS: STERILE WATER FOR INJECTION 10 ML IV ×2 (05:08→12:45)
[2025-08-02] MEDS: MERREM 500 MG IV ×2 (05:08→12:45)
[2025-08-02 07:10] VITALS: BP 114/61
[2025-08-02 07:37] LABS: Hematocrit 28.4 % (39.0-52.0); Hemoglobin 9.3 g/dL (13.0-18.0); Mean Corp Hgb Conc. 32.7 g/dL (33.0-37.0); Mean Corpuscular Volume 95.6 fL (80.0-94.0); Nucleated Red Blood Cells % 0 % (-); Platelet Count 191 10^3/uL (130-400); Red Cell Dist. Width 15.8 % (11.5-14.5)
[2025-08-02 07:57] LABS: INR 3.68; PT 36.7 Sec (11.4-14.6)
[2025-08-02 08:23] LABS: Blood Urea Nitrogen 19 mg/dl (9-20); Calcium 7.7 mg/dl (8.4-10.2); Carbon Dioxide 24 mmol/L (22-30); Chloride 105 mmol/L (98-107); Estimated Creatinine Clearance 121 ml/min; Glucose 78 mg/dl (70-99); Potassium 4.2 mmol/L (3.5-5.1); Sodium 131 mmol/L (135-145); eGFR > 60.00
[2025-08-02] MEDS: METAMUCIL, KONSYL 1 PACKET PO (08:32)
[2025-08-02] MEDS: ANTIFUNGAL CLEAR 1 APPLIC TOPICAL ×2 (08:32→19:36)
[2025-08-02] MEDS: PROTONIX 40 MG PO (08:32)
[2025-08-02] MEDS: HYDROPHOR 1 APPLIC TOPICAL (08:33)
--- NOTE | 2025-08-02 08:36 | W.PN.HOSP.TC ---
Today's Communication/Plan
-
IV antibiotics. Discharge planning
Assessment / Plan
Assessment / Plan
Physical exam:
General: Acutely ill
HEENT: Normocephalic, Atraumatic and Moist Mucous Membranes
Respiratory: Clear to Auscultation; Negative Wheezes, Rales or Rhonchi
Cardiac: Regular Rhythm and S1/S2
GI: Soft, Nontender and Nondistended
Skin: Left lower extremity erythema and wounds improved substantially and residual edema remains. Mild tenderness.
Musculoskeletal: No Clubbing, No Cyanosis and No Edema
Neuro: Awake, Alert and Oriented, no neurological deficit
Psych: Calm
A/P:
Septic shock due to Streptococcus G bacteremia and left lower extremity cellulitis:
Improved clinically but recurrence of fevers so ID is restarting IV meropenem on 08/01 and proceeding to do fever of unknown origin workup (had received multiple courses of different antibiotics)
There was also evidence of bloody and ?purulent discharge in the left lower extremity so cultures and ultrasound was ordered yesterday on 08/01--> cultures no growth so far and us shows no abscess.
ID on board
NICOLE no evidence of endocarditis and CT scan no evidence of necrotizing fasciitis.
Latest blood cultures no growth
Pain control with Tylenol, Oxy oral and IV Dilaudid as needed
PT OT eval for discharge disposition
Hematochezia due to GI bleed in the setting of supratherapeutic INR:
Resolved and GI evaluated the patient.
On oral PPI and Metamucil and MiraLAX
Back on warfarin without further bleeding.
Permanent A-fib:
Pacemaker from AV block
Off rate control agents for more than 2 weeks and has not required anything
Continue anticoagulation with warfarin but hold for now; INR 3.68 today
Orthostatic hypotension:
On midodrine 10 mg p.o. every 8 hours
TANA due to ATN:
Back to baseline after treatment of infection and fluid
Volume overload without evidence of CHF:
IV Lasix given during initial period of hospitalization but has not required any longer
Hypokalemia:
Repleted appropriately
Metabolic acidosis:
Resolved
Rhabdomyolysis:
Resolved
Hypothyroidism:
Continue levothyroxine 50 mcg p.o. daily
Thrombocytopenia:
Resolved
Transaminitis:
Improved
Coagulopathy with supratherapeutic INR:
Resolved
Hyponatremia:
Improved
Other medical problems:
Hypertension
Hyperlipidemia
Chronic venous stasis changes
Overreactive bladder
Rectal prolapse
Essential tremor
Constipation
Prostate cancer status post radical prostatectomy and radiation
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
History of thoracic aortic aneurysm
Complete heart block status post pacemaker
DVT prophylaxis:
On warfarin
Total time spent on today's encounter was 52 minutes which included time spent in counseling the patient/family regarding diagnosis and treatment plan as listed above, goals of care, and symptom management. Case was discussed with nursing staff,
specialists, and care coordinators/case management. All labs and imaging personally reviewed by me. Remainder the time spent in detailed review of previous records, lab data, imaging, and other medical provider documentation.
Anticipated Discharge: 24 - 48 hours
Subjective/Interval History
-
Date of Service: August 02, 2025
Feels well overall. No nausea vomiting diarrhea. Afebrile
Objective Data
-
Labs:
Laboratory Results
08/02/25
07:05
WBC 5.8
Hgb 9.3 L
Hct 28.4 L
Plt Count 191
PT 36.7 H
INR 3.68
Sodium 131 L
Potassium 4.2
Chloride 105
Carbon Dioxide 24
BUN 19
Creatinine 0.6 L
Glucose 78
Calcium 7.7 L
Vital Signs:
Vital Signs
Temp Pulse Resp BP Pulse Ox
98 F 75 18 105/58 98
08/01/25 23:03 08/01/25 23:17 08/01/25 23:03 08/01/25 23:17 08/01/25 23:03
I&O
08/01/25 08/02/25 08/03/25
06:59 06:59 06:59
Intake Total 600 / 600
Balance 600 / 600
[2025-08-02 08:37] VITALS: BP 114/61
--- NOTE | 2025-08-02 10:50 | WOUNDNOTE ---
COLLEEN APPLE NOTE: No growth from wound culture of L leg, ultrasound done and results pending. Will follow as needed.
[2025-08-02] MEDS: MIRALAX PO (10:54)
--- NOTE | 2025-08-02 11:31 | W.PN.ID1 ---
Date of Service
Date of Service: August 02, 2025
Today's Communication
- no abscess was found and wound culture negative
- isolated fever may relate to superficial venous thrombosis
- stop antibiotics
Assessment / Plan
# Suspected drug rash from cephalosporins
. Improving. Malar erythroderma resolved, Bilateral thigh maculopapular rash improved
# Fever; improving
# Leukocytosis resolved
# Severe LLE cellulitis, improving
# Group G streptococcus bacteremia - cellulitis likely source
# TANA resolved
# Anasarca
# s/p Septic shock due to cellulitis/bacteremia, weaned off pressor
# Acute on chronic thrombocytopenia, resolved
# Elevated LFT's resolved; hyperbilirubinemia stable
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
# PPM
-07/17 CT a/p: fecal impaction
- TTE: no gross vegetations; AVR and MV repair with normal gradients
- 07/23 blood cx's x 2 neg
-07/24 blood cx's x 2 neg
- 07/23 CT LLE with contrast: no abscess/nec fasciitis
- 07/26 CXR marked cardiomegaly, no consolidation
-07/26 ABD US: no steve dil, no cholecystitis
- s/p 3d clindamycin 900mg IV q8 as toxin inhibitor
- s/p ceftriaxone (x5d) then switched to IV cefepime, po metronidazole, and po linezolid x5d
- then s/p cefepime/metronidazole (2d)
- s/p empiric linezolid po(d5) (toxin inhibitor)
# FUO
- workup not revealing beyond somewhat elevated inflammatory markers
- no abscess was found and wound culture negative
- isolated fever may relate to superficial venous thrombosis
- stop antibiotics
#Conditions present on admission:
HTN
Atrial fibrillation on Coumadin
Complete heart block s/p PPM
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
AV homograft regurgitation s/p bioprosthetic AVR 2014
Thoracic aortic aneurysm
CAD
Hypothyroidism
Chronic thrombocytopenia
Venous stasis
Overactive bladder
Rectal prolapse
Essential tremor
Chronic constipation
Prostate ca (2002) s/p radical prostatectomy, XRT
Right total knee replacement
Chief Complaint
-: Fever and Bacteremia
Subjective / Review of Systems
afebrile
bp stable
remains with no complaints, asking about rehab
Vital Signs / Physical Exam
Vital Signs
Vital Signs
Temp Pulse Resp BP Pulse Ox
98.5 F 77 18 114/61 96
08/02/25 07:10 08/02/25 07:10 08/02/25 07:10 08/02/25 08:32 08/02/25 07:10
Physical Exam
Constitutional: No Acute Distress
Cardiovascular: Regular Rate and S1/S2; Negative Murmur or Rub
Pulmonary: Clear and Symmetric; Negative Wheezes or Rales
Gastrointestinal: Soft, Non Tender, Non Distended and Normal Bowel Sounds
Skin: Warm and Dry; Negative Rash or Jaundice
Objective Data
Lab Data
Lab Results
08/02/25 07:05
08/02/25 07:05
ESR 115 mm/hour (0-20) H 08/01/25 12:03
PT 36.7 Sec (11.4-14.6) H 08/02/25 07:05
INR 3.68 08/02/25 07:05
APTT 52.2 Sec (23.4-35.0) H 07/17/25 11:28
Estimated Creat Clear 121 ml/min 08/02/25 07:05
Lactic Acid 1.2 mmol/L (0.7-2.0) 07/23/25 09:58
Total Bilirubin 3.3 mg/dl (0.2-1.3) H 07/27/25 05:04
AST 39 U/L (17-59) 07/27/25 05:04
ALT 28 U/L (0-50) 07/27/25 05:04
Alkaline Phosphatase 182 U/L (38-126) H 07/27/25 05:04
C-Reactive Protein 69.80 mg/L (0.0-10.00) H 08/01/25 12:03
Most recent labs reviewed.
Micro Results:
08/01/25 14:51 Wound Culture - Preliminary
Abscess No growth
Gram Stain - Preliminary
08/01/25 12:03 Blood Parasites Smear - Final
Blood/Venous
07/24/25 21:03 Blood Culture - Final
Blood/Venous No Growth - Final Report
07/24/25 19:45 Blood Culture - Final
Blood/Venous No Growth - Final Report
07/23/25 10:08 Blood Culture - Final
Blood/Venous No Growth - Final Report
07/23/25 10:08 Blood Culture - Final
Blood/Venous No Growth - Final Report
07/27/25 12:02 Urine Culture - Final
Urine NO GROWTH
07/17/25 11:33 Blood Culture - Final
Blood/Venous Group G Streptococcus
Gram Stain - Final
07/17/25 11:28 Blood Culture - Final
Blood/Venous Group G Streptococcus
Gram Stain - Final
07/18/25 14:51 Blood Culture - Final
Blood/Venous No Growth - Final Report
07/18/25 14:50 Blood Culture - Final
Blood/Venous No Growth - Final Report
07/17/25 16:46 Salmonella/Shigella Culture - Final
Feces/Stool No Salmonella, Shigella, Aeromonas or Plesiomonas species
isolated.
Campylobacter Culture - Final
No Campylobacter species isolated.
Shiga Toxin Test - Final
No E. coli Shiga Toxin 1 or 2 detected.
07/17/25 11:33 Urine Culture - Final
Urine
07/17/25 16:46 C. difficile GDH Antigen & Toxins - Final
Feces/Stool Negative for toxigenic C.difficile
07/17/25 11:28 Influenza Types A & B ([facility]RIS) - Final
Nasal Swab Negative for Influenza A & B, NAAT
Negative results must be combined with clinical observations
and patient history.
Nucleic Acid Amplification test (NAAT)performed on the
[employer] platform.
Imaging:
07/17/25 CXR: Cardiomegaly. Pulmonary vascularity at least top normal. No focal parenchymal opacification to suggest pneumonia.
07/17/25 CT a/p: Probable complex cyst of the right kidney. Further evaluation with a CT of the kidneys pre- and post-IV contrast or MRI examination recommended. Malignancy not excluded. Increased complexity.
Bilateral subcentimeter hyperdense renal lesions likely benign proteinaceous cysts. New
Tiny nonobstructing bilateral renal stones. New.
Findings suggestive of fecal impaction. Moderate rectal wall thickening. Stercoral colitis cannot excluded. Progressed.
Mild diffuse bladder wall thickening. This can be seen with cystitis or bladder outlet obstruction. Stable
[2025-08-02 11:37] VITALS: BP 161/69; PULSE 71; O2SAT 95
[2025-08-02 11:41] VITALS: BP 161/69; PULSE 71; O2SAT 95
--- NOTE | 2025-08-02 11:45 | WOUNDNOTE ---
WOC RN note: Confirmed patient has a [employer] air bed and air chair cushions. Patient sitting in chair. Pillow under feet. Skin on heels intact. Discussed with ZECHARIAH Pastor.
[2025-08-02 15:28] VITALS: BP 143/66
[2025-08-02] MEDS: TYLENOL 650 MG PO (19:34)
[2025-08-02 23:14] VITALS: BP 100/59
[2025-08-03 01:56] LABS: ANA, IgG Reflex to HEp-2 Detected (None Detected)
[2025-08-03] MEDS: SYNTHROID 50 MCG PO (05:23)
[2025-08-03 07:00] VITALS: BP 128/69
[2025-08-03 08:22] LABS: INR 2.97; PT 30.8 Sec (11.4-14.6)
[2025-08-03 08:37] LABS: Hematocrit 31.7 % (39.0-52.0); Hemoglobin 10.4 g/dL (13.0-18.0); Mean Corp Hgb Conc. 32.8 g/dL (33.0-37.0); Mean Corpuscular Volume 99.4 fL (80.0-94.0); Nucleated Red Blood Cells % 0 % (-); Platelet Count 197 10^3/uL (130-400); Red Cell Dist. Width 15.9 % (11.5-14.5)
[2025-08-03 08:53] LABS: Blood Urea Nitrogen 17 mg/dl (9-20); Calcium 8.0 mg/dl (8.4-10.2); Carbon Dioxide 24 mmol/L (22-30); Chloride 105 mmol/L (98-107); Estimated Creatinine Clearance 121 ml/min; Glucose 76 mg/dl (70-99); Potassium 4.2 mmol/L (3.5-5.1); Sodium 129 mmol/L (135-145); eGFR > 60.00
[2025-08-03] MEDS: PROTONIX 40 MG PO (08:53)
[2025-08-03] MEDS: METAMUCIL, KONSYL PO (08:56)
[2025-08-03] MEDS: MIRALAX PO (08:56)
[2025-08-03] MEDS: ANTIFUNGAL CLEAR 1 APPLIC TOPICAL ×2 (09:07→23:44)
[2025-08-03] MEDS: HYDROPHOR 1 APPLIC TOPICAL (09:07)
--- NOTE | 2025-08-03 11:01 | CM ---
Chart reviewed. Per hospitalist, fever work up and abx, will observe for an additional 24 hours. Possibly stable for discharge tomorrow
Spoke w/ patient's spouse, updated on possible d/c tomorrow. Spouse asking about [facility] rehab, [facility]. CM informed spouse that patient is not being recommended for acute rehab as he does not have an acute dx for that level of
therapy. Spouse understood this, agreeable to additional referral to [facility] as it is by her daughter's home. Referral sent in [facility]
Messages sent to Lalo at [facility] and Lizeth at [facility]
Will need insurance auth
Plan: SNF
--- NOTE | 2025-08-03 11:08 | W.PN.HOSP.TC ---
Today's Communication/Plan
-
Observe off antibiotics. Discharge planning
Assessment / Plan
Assessment / Plan
Physical exam:
General: Acutely ill
HEENT: Normocephalic, Atraumatic and Moist Mucous Membranes
Respiratory: Clear to Auscultation; Negative Wheezes, Rales or Rhonchi
Cardiac: Regular Rhythm and S1/S2
GI: Soft, Nontender and Nondistended
Skin: Left lower extremity erythema and wounds improved substantially and residual edema remains. Mild tenderness.
Musculoskeletal: No Clubbing, No Cyanosis and No Edema
Neuro: Awake, Alert and Oriented, no neurological deficit
Psych: Calm
A/P:
Septic shock due to Streptococcus G bacteremia and left lower extremity cellulitis:
Improved clinically but recurrence of fevers -->fever of unknown origin workup (had received multiple courses of different antibiotics). Off antibiotics
LLE cultures no growth so far and us showed no abscess.
ID on board--> discussed with ID today on 08/03. If remains afebrile for 24 hours plan to go to rehab perhaps tomorrow. Discussed with medical case worker about this plan.
NICOLE no evidence of endocarditis and CT scan no evidence of necrotizing fasciitis.
Latest blood cultures no growth
Pain control with Tylenol, Oxy oral and IV Dilaudid as needed
PT OT eval for discharge disposition
Hematochezia due to GI bleed in the setting of supratherapeutic INR:
Resolved and GI evaluated the patient.
On oral PPI and Metamucil and MiraLAX
Back on warfarin without further bleeding.
Permanent A-fib:
Pacemaker from AV block
Off rate control agents for more than 2 weeks and has not required anything
Continue anticoagulation with warfarin; INR 2.97 today
Orthostatic hypotension:
On midodrine 10 mg p.o. every 8 hours
TANA due to ATN:
Back to baseline after treatment of infection and fluid
Volume overload without evidence of CHF:
IV Lasix given during initial period of hospitalization but has not required any longer
Hypokalemia:
Repleted appropriately
Metabolic acidosis:
Resolved
Rhabdomyolysis:
Resolved
Hypothyroidism:
Continue levothyroxine 50 mcg p.o. daily
Thrombocytopenia:
Resolved
Transaminitis:
Improved
Coagulopathy with supratherapeutic INR:
Resolved
Hyponatremia:
Improved
Other medical problems:
Hypertension
Hyperlipidemia
Chronic venous stasis changes
Overreactive bladder
Rectal prolapse
Essential tremor
Constipation
Prostate cancer status post radical prostatectomy and radiation
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
History of thoracic aortic aneurysm
Complete heart block status post pacemaker
DVT prophylaxis:
On warfarin
Total time spent on today's encounter was 35 minutes which included time spent in counseling the patient/family regarding diagnosis and treatment plan as listed above, goals of care, and symptom management. Case was discussed with nursing staff,
specialists, and care coordinators/case management. All labs and imaging personally reviewed by me. Remainder the time spent in detailed review of previous records, lab data, imaging, and other medical provider documentation.
Anticipated Discharge: Within 24 hours
Subjective/Interval History
-
Date of Service: August 03, 2025
No nausea vomiting or diarrhea. Did had a Tmax of 102.6 Fahrenheit last evening. Today remains afebrile
Objective Data
-
Labs:
Laboratory Results
08/03/25
07:40
WBC 5.6
Hgb 10.4 L
Hct 31.7 L
Plt Count 197
PT 30.8 H
INR 2.97
Sodium 129 L
Potassium 4.2
Chloride 105
Carbon Dioxide 24
BUN 17
Creatinine 0.6 L
Glucose 76
Calcium 8.0 L
Vital Signs:
Vital Signs
Temp Pulse Resp BP Pulse Ox
97.9 F 71 16 128/79 100
08/03/25 07:00 08/03/25 08:52 08/03/25 07:00 08/03/25 08:52 08/03/25 07:00
I&O
08/02/25 08/03/25 08/04/25
06:59 06:59 06:59
Intake Total 1200 / 1200
Output Total 2300 / 2300
Balance -1100 / -1100
--- NOTE | 2025-08-03 11:48 | W.PN.ID1 ---
Date of Service
Date of Service: August 03, 2025
Today's Communication
- CXR 2 view
- UA reflex to culture
- blood cultures x2
- covid and influenza serologies
observe off antibiotics pending the above workup
Assessment / Plan
# Suspected drug rash from cephalosporins
. Improving. Malar erythroderma resolved, Bilateral thigh maculopapular rash improved
# Fever; improving
# Leukocytosis resolved
# Severe LLE cellulitis, resolved
# Group G streptococcus bacteremia - cellulitis likely source
# TANA resolved
# Anasarca
# s/p Septic shock due to cellulitis/bacteremia, weaned off pressor
# Acute on chronic thrombocytopenia, resolved
# Elevated LFT's resolved; hyperbilirubinemia stable
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
# PPM
-07/17 CT a/p: fecal impaction
- TTE: no gross vegetations; AVR and MV repair with normal gradients
- 07/23 blood cx's x 2 neg
-07/24 blood cx's x 2 neg
- 07/23 CT LLE with contrast: no abscess/nec fasciitis
- 07/26 CXR marked cardiomegaly, no consolidation
-07/26 ABD US: no steve dil, no cholecystitis
- s/p 3d clindamycin 900mg IV q8 as toxin inhibitor
- s/p ceftriaxone (x5d) then switched to IV cefepime, po metronidazole, and po linezolid x5d
- then s/p cefepime/metronidazole (2d)
- s/p empiric linezolid po(d5) (toxin inhibitor)
# Relapse of fevers/FUO
- CXR 2 view
- UA reflex to culture
- blood cultures x2
- covid and influenza serologies
- KVNG positive awaiting titer, moderately elevated inflammatory markers
- observe off of antibiotics pending the above workup
#Conditions present on admission:
HTN
Atrial fibrillation on Coumadin
Complete heart block s/p PPM
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
AV homograft regurgitation s/p bioprosthetic AVR 2014
Thoracic aortic aneurysm
CAD
Hypothyroidism
Chronic thrombocytopenia
Venous stasis
Overactive bladder
Rectal prolapse
Essential tremor
Chronic constipation
Prostate ca (2002) s/p radical prostatectomy, XRT
Right total knee replacement
Chief Complaint
-: Fever and Bacteremia
Subjective / Review of Systems
febrile overnight to 102.4
bp stable
only complaint is frustration with the fevers
Vital Signs / Physical Exam
Vital Signs
Vital Signs
Temp Pulse Resp BP Pulse Ox
97.9 F 71 16 128/79 100
08/03/25 07:00 08/03/25 08:52 08/03/25 07:00 08/03/25 08:52 08/03/25 07:00
Physical Exam
Constitutional: No Acute Distress
Cardiovascular: Regular Rate and S1/S2; Negative Murmur or Rub
Pulmonary: Clear and Symmetric; Negative Wheezes or Rales
Gastrointestinal: Soft, Non Tender, Non Distended and Normal Bowel Sounds
Skin: Warm and Dry; Negative Rash or Jaundice
Objective Data
Lab Data
Lab Results
08/03/25 07:40
08/03/25 07:40
ESR 115 mm/hour (0-20) H 08/01/25 12:03
PT 30.8 Sec (11.4-14.6) H 08/03/25 07:40
INR 2.97 08/03/25 07:40
APTT 52.2 Sec (23.4-35.0) H 07/17/25 11:28
Estimated Creat Clear 121 ml/min 08/03/25 07:40
Lactic Acid 1.2 mmol/L (0.7-2.0) 07/23/25 09:58
Total Bilirubin 3.3 mg/dl (0.2-1.3) H 07/27/25 05:04
AST 39 U/L (17-59) 07/27/25 05:04
ALT 28 U/L (0-50) 07/27/25 05:04
Alkaline Phosphatase 182 U/L (38-126) H 07/27/25 05:04
C-Reactive Protein 69.80 mg/L (0.0-10.00) H 08/01/25 12:03
Most recent labs reviewed.
Micro Results:
08/01/25 14:51 Wound Culture - Preliminary
Abscess No growth
Gram Stain - Preliminary
08/01/25 12:03 Blood Parasites Smear - Final
Blood/Venous
07/24/25 21:03 Blood Culture - Final
Blood/Venous No Growth - Final Report
07/24/25 19:45 Blood Culture - Final
Blood/Venous No Growth - Final Report
07/23/25 10:08 Blood Culture - Final
Blood/Venous No Growth - Final Report
07/23/25 10:08 Blood Culture - Final
Blood/Venous No Growth - Final Report
07/27/25 12:02 Urine Culture - Final
Urine NO GROWTH
07/17/25 11:33 Blood Culture - Final
Blood/Venous Group G Streptococcus
Gram Stain - Final
07/17/25 11:28 Blood Culture - Final
Blood/Venous Group G Streptococcus
Gram Stain - Final
07/18/25 14:51 Blood Culture - Final
Blood/Venous No Growth - Final Report
07/18/25 14:50 Blood Culture - Final
Blood/Venous No Growth - Final Report
07/17/25 16:46 Salmonella/Shigella Culture - Final
Feces/Stool No Salmonella, Shigella, Aeromonas or Plesiomonas species
isolated.
Campylobacter Culture - Final
No Campylobacter species isolated.
Shiga Toxin Test - Final
No E. coli Shiga Toxin 1 or 2 detected.
07/17/25 11:33 Urine Culture - Final
Urine
07/17/25 16:46 C. difficile GDH Antigen & Toxins - Final
Feces/Stool Negative for toxigenic C.difficile
07/17/25 11:28 Influenza Types A & B (CHRIS) - Final
Nasal Swab Negative for Influenza A & B, NAAT
Negative results must be combined with clinical observations
and patient history.
Nucleic Acid Amplification test (NAAT)performed on the
[employer] platform.
Imaging:
07/17/25 CXR: Cardiomegaly. Pulmonary vascularity at least top normal. No focal parenchymal opacification to suggest pneumonia.
07/17/25 CT a/p: Probable complex cyst of the right kidney. Further evaluation with a CT of the kidneys pre- and post-IV contrast or MRI examination recommended. Malignancy not excluded. Increased complexity.
Bilateral subcentimeter hyperdense renal lesions likely benign proteinaceous cysts. New
Tiny nonobstructing bilateral renal stones. New.
Findings suggestive of fecal impaction. Moderate rectal wall thickening. Stercoral colitis cannot excluded. Progressed.
Mild diffuse bladder wall thickening. This can be seen with cystitis or bladder outlet obstruction. Stable
[2025-08-03 13:15] LABS: COVID-19 Antigen Negative (Negative)
[2025-08-03 15:00] VITALS: BP 117/66
[2025-08-03 15:08] LABS: Rheumatoid Agglutinin Positive (<10 IU)
[2025-08-03 16:47] LABS: Rheumatoid Agg. Semi-quant 512 IU
[2025-08-03] MEDS: MUCINEX 600 MG PO ×2 (16:56→19:32)
[2025-08-03 17:22] LABS: Urine Character Clear (Clear)
[2025-08-03 18:00] LABS: Urine Squamous Cell 0-2 /LPF (Few)
[2025-08-03 18:01] LABS: Urine Red Blood Cell 0-2 /HPF (0-2); Urine White Cell 0-2 /HPF (0-5)
[2025-08-03 23:23] VITALS: BP 120/66
[2025-08-04] MEDS: SYNTHROID 50 MCG PO (05:28)
[2025-08-04 06:00] VITALS: BMI 27.5
[2025-08-04 07:08] VITALS: BP 122/60
[2025-08-04 08:00] LABS: Hematocrit 29.2 % (39.0-52.0); Hemoglobin 9.7 g/dL (13.0-18.0); Mean Corp Hgb Conc. 33.2 g/dL (33.0-37.0); Mean Corpuscular Volume 93.6 fL (80.0-94.0); Nucleated Red Blood Cells % 0 % (-); Platelet Count 229 10^3/uL (130-400); Red Cell Dist. Width 15.8 % (11.5-14.5)
[2025-08-04 08:32] LABS: Blood Urea Nitrogen 13 mg/dl (9-20); Calcium 8.0 mg/dl (8.4-10.2); Carbon Dioxide 24 mmol/L (22-30); Chloride 102 mmol/L (98-107); Estimated Creatinine Clearance 121 ml/min; Glucose 80 mg/dl (70-99); Potassium 4.2 mmol/L (3.5-5.1); Sodium 128 mmol/L (135-145); eGFR > 60.00
[2025-08-04] MEDS: PROTONIX 40 MG PO (08:46)
[2025-08-04] MEDS: MUCINEX 600 MG PO ×2 (08:46→19:53)
[2025-08-04] MEDS: ANTIFUNGAL CLEAR 1 APPLIC TOPICAL ×2 (08:47→20:09)
[2025-08-04] MEDS: HYDROPHOR 1 APPLIC TOPICAL (08:47)
[2025-08-04] MEDS: METAMUCIL, KONSYL PO (08:48)
[2025-08-04] MEDS: MIRALAX PO (08:48)
[2025-08-04 08:52] LABS: INR 2.23; PT 24.8 Sec (11.4-14.6)
[2025-08-04] MEDS: SODIUM CHLORIDE 1 GRAM PO ×2 (10:03→19:53)
[2025-08-04 10:25] VITALS: BP 126/70; BP_SYST 73
[2025-08-04 10:42] VITALS: BP 131/68
--- NOTE | 2025-08-04 11:17 | TRANSFER ---
Per IR, patient did well left thoracentesis. 400ml clear yellow sent fluids for what was ordered. Bandaid cdi, left back. vss.Papers will be tubed up
--- NOTE | 2025-08-04 11:20 | W.PN.HOSP.TC ---
Today's Communication/Plan
-
Antibiotics. Discharge planning
Assessment / Plan
Assessment / Plan
Physical exam:
General: Acutely ill
HEENT: Normocephalic, Atraumatic and Moist Mucous Membranes
Respiratory: Clear to Auscultation; Negative Wheezes, Rales or Rhonchi
Cardiac: Regular Rhythm and S1/S2
GI: Soft, Nontender and Nondistended
Skin: Left lower extremity erythema and wounds improved substantially and residual edema remains. Mild tenderness.
Musculoskeletal: No Clubbing, No Cyanosis and No Edema
Neuro: Awake, Alert and Oriented, no neurological deficit
Psych: Calm
A/P:
Septic shock due to Streptococcus G bacteremia and left lower extremity cellulitis:
ID on board
NICOLE no evidence of endocarditis and CT scan no evidence of necrotizing fasciitis.
Latest blood cultures no growth
Pain control with Tylenol, Oxy oral and IV Dilaudid as needed
PT OT
Tried to reach but unable to reach today
Discussed with rn case manager today
Recurrence of fevers likely due to Pneumonia:
Treat as community-acquired pneumonia
Start cefdinir and doxycycline for 7 days course
Appreciated ID recommendations
Left pleural effusion:
Discussed with IR
S/p thoracentesis today and results not indicative of empyema but rest of the studies will need follow-up.
Hematochezia due to GI bleed in the setting of supratherapeutic INR:
Resolved and GI evaluated the patient.
On oral PPI and Metamucil and MiraLAX
Back on warfarin without further bleeding.
Permanent A-fib:
Pacemaker from AV block
Off rate control agents for more than 2 weeks and has not required anything
Continue anticoagulation with warfarin; INR 2.23 today
Orthostatic hypotension:
On midodrine 10 mg p.o. every 8 hours
TANA due to ATN:
Back to baseline after treatment of infection and fluid
Volume overload without evidence of CHF:
IV Lasix given during initial period of hospitalization but has not required any longer
Hypokalemia:
Repleted appropriately
Metabolic acidosis:
Resolved
Rhabdomyolysis:
Resolved
Hypothyroidism:
Continue levothyroxine 50 mcg p.o. daily
Thrombocytopenia:
Resolved
Transaminitis:
Improved
Coagulopathy with supratherapeutic INR:
Resolved
Hyponatremia:
Improved
Other medical problems:
Hypertension
Hyperlipidemia
Chronic venous stasis changes
Overreactive bladder
Rectal prolapse
Essential tremor
Constipation
Prostate cancer status post radical prostatectomy and radiation
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
History of thoracic aortic aneurysm
Complete heart block status post pacemaker
DVT prophylaxis:
On warfarin
Total time spent on today's encounter was 36 minutes which included time spent in counseling the patient/family regarding diagnosis and treatment plan as listed above, goals of care, and symptom management. Case was discussed with nursing staff,
specialists, and care coordinators/case management. All labs and imaging personally reviewed by me. Remainder the time spent in detailed review of previous records, lab data, imaging, and other medical provider documentation.
Anticipated Discharge: Within 24 hours
Subjective/Interval History
-
Date of Service: August 04, 2025
Mild cough. No shortness of breath. Afebrile.
Objective Data
-
Labs:
Laboratory Results
08/04/25
07:35
WBC 6.3
Hgb 9.7 L
Hct 29.2 L
Plt Count 229
PT 24.8 H
INR 2.23
Sodium 128 L
Potassium 4.2
Chloride 102
Carbon Dioxide 24
BUN 13
Creatinine 0.6 L
Glucose 80
Calcium 8.0 L
Vital Signs:
Vital Signs
Temp Pulse Resp BP Pulse Ox
98.3 F 74 18 131/68 98
08/04/25 07:08 08/04/25 10:42 08/04/25 10:42 08/04/25 10:42 08/04/25 10:42
I&O
08/03/25 08/04/25 08/05/25
06:59 06:59 06:59
Intake Total 1200 / 1200 1200 / 1200
Output Total 2300 / 2300 1600 / 1600
Balance -1100 / -1100 -400 / -400
[2025-08-04 11:50] LABS: Body Fluid Second Tech CMB
[2025-08-04] MEDS: TYLENOL 650 MG PO (12:46)
--- NOTE | 2025-08-04 13:07 | PTCARENOTE ---
took over care of pt at 11am. pt had just returned from IR post thoracentesis. Tylenol give at 12:46 for complaint of pain at site of thoracentesis. Pt offers no other complaints. Call hager in reach.
--- NOTE | 2025-08-04 14:08 | W.PN.ID1 ---
Date of Service
Date of Service: August 04, 2025
Today's Communication
Thoracentesis fluid was bland
start cefdinir and doxycycyline for a 7 day total course for pneumonia
Assessment / Plan
# Suspected drug rash from cephalosporins
. Improving. Malar erythroderma resolved, Bilateral thigh maculopapular rash improved
# Fever; improving
# Leukocytosis resolved
# Severe LLE cellulitis, resolved
# Group G streptococcus bacteremia - cellulitis likely source
# TANA resolved
# Anasarca
# s/p Septic shock due to cellulitis/bacteremia, weaned off pressor
# Acute on chronic thrombocytopenia, resolved
# Elevated LFT's resolved; hyperbilirubinemia stable
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
# PPM
-07/17 CT a/p: fecal impaction
- TTE: no gross vegetations; AVR and MV repair with normal gradients
- 07/23 blood cx's x 2 neg
-07/24 blood cx's x 2 neg
- 07/23 CT LLE with contrast: no abscess/nec fasciitis
- 07/26 CXR marked cardiomegaly, no consolidation
-07/26 ABD US: no steve dil, no cholecystitis
- s/p 3d clindamycin 900mg IV q8 as toxin inhibitor
- s/p ceftriaxone (x5d) then switched to IV cefepime, po metronidazole, and po linezolid x5d
- then s/p cefepime/metronidazole (2d)
- s/p empiric linezolid po(d5) (toxin inhibitor)
# Relapse of fevers
- CXR 2 view with possible pneumonia
- s/p thoracentesis with bland fluid
- cefdinir and doxycycline x 7 days
#Conditions present on admission:
HTN
Atrial fibrillation on Coumadin
Complete heart block s/p PPM
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
AV homograft regurgitation s/p bioprosthetic AVR 2014
Thoracic aortic aneurysm
CAD
Hypothyroidism
Chronic thrombocytopenia
Venous stasis
Overactive bladder
Rectal prolapse
Essential tremor
Chronic constipation
Prostate ca (2002) s/p radical prostatectomy, XRT
Right total knee replacement
Chief Complaint
-: Fever and Bacteremia
Subjective / Review of Systems
afebrile
bp stable
Vital Signs / Physical Exam
Vital Signs
Vital Signs
Temp Pulse Resp BP Pulse Ox
98.5 F 74 18 131/68 98
08/04/25 10:25 08/04/25 10:42 08/04/25 10:42 08/04/25 10:42 08/04/25 10:42
Physical Exam
Constitutional: No Acute Distress
Cardiovascular: Regular Rate and S1/S2; Negative Murmur or Rub
Pulmonary: Clear and Symmetric; Negative Wheezes or Rales
Gastrointestinal: Soft, Non Tender, Non Distended and Normal Bowel Sounds
Skin: Warm and Dry; Negative Rash or Jaundice
Objective Data
Lab Data
Lab Results
08/04/25 07:35
08/04/25 07:35
ESR 115 mm/hour (0-20) H 08/01/25 12:03
PT 24.8 Sec (11.4-14.6) H 08/04/25 07:35
INR 2.23 08/04/25 07:35
APTT 52.2 Sec (23.4-35.0) H 07/17/25 11:28
Estimated Creat Clear 121 ml/min 08/04/25 07:35
Lactic Acid 1.2 mmol/L (0.7-2.0) 07/23/25 09:58
Total Bilirubin 3.3 mg/dl (0.2-1.3) H 07/27/25 05:04
AST 39 U/L (17-59) 07/27/25 05:04
ALT 28 U/L (0-50) 07/27/25 05:04
Alkaline Phosphatase 182 U/L (38-126) H 07/27/25 05:04
C-Reactive Protein 69.80 mg/L (0.0-10.00) H 08/01/25 12:03
Most recent labs reviewed.
Micro Results:
08/03/25 13:10 Blood Culture - Preliminary
Blood/Venous No Growth in 24 hours- Final report to follow
08/03/25 12:38 Blood Culture - Preliminary
Blood/Venous No Growth in 24 hours- Final report to follow
08/01/25 14:51 Wound Culture - Final
Abscess No growth
Gram Stain - Final
08/04/25 10:57 Body Fluid Culture - Pending
Pleural Fluid Gram Stain - Pending
08/03/25 12:30 Influenza Types A & B ([facility]) - Final
Nasal Swab Negative for Influenza A & B, NAAT
Negative results must be combined with clinical observations
and patient history.
Nucleic Acid Amplification test (NAAT)performed on the
[employer] platform.
08/01/25 12:03 Blood Parasites Smear - Final
Blood/Venous
07/24/25 21:03 Blood Culture - Final
Blood/Venous No Growth - Final Report
07/24/25 19:45 Blood Culture - Final
Blood/Venous No Growth - Final Report
07/23/25 10:08 Blood Culture - Final
Blood/Venous No Growth - Final Report
07/23/25 10:08 Blood Culture - Final
Blood/Venous No Growth - Final Report
07/27/25 12:02 Urine Culture - Final
Urine NO GROWTH
07/17/25 11:33 Blood Culture - Final
Blood/Venous Group G Streptococcus
Gram Stain - Final
07/17/25 11:28 Blood Culture - Final
Blood/Venous Group G Streptococcus
Gram Stain - Final
07/18/25 14:51 Blood Culture - Final
Blood/Venous No Growth - Final Report
07/18/25 14:50 Blood Culture - Final
Blood/Venous No Growth - Final Report
07/17/25 16:46 Salmonella/Shigella Culture - Final
Feces/Stool No Salmonella, Shigella, Aeromonas or Plesiomonas species
isolated.
Campylobacter Culture - Final
No Campylobacter species isolated.
Shiga Toxin Test - Final
No E. coli Shiga Toxin 1 or 2 detected.
07/17/25 11:33 Urine Culture - Final
Urine
07/17/25 16:46 C. difficile GDH Antigen & Toxins - Final
Feces/Stool Negative for toxigenic C.difficile
07/17/25 11:28 Influenza Types A & B (CHRIS) - Final
Nasal Swab Negative for Influenza A & B, NAAT
Negative results must be combined with clinical observations
and patient history.
Nucleic Acid Amplification test (NAAT)performed on the
[employer] platform.
Imaging:
07/17/25 CXR: Cardiomegaly. Pulmonary vascularity at least top normal. No focal parenchymal opacification to suggest pneumonia.
07/17/25 CT a/p: Probable complex cyst of the right kidney. Further evaluation with a CT of the kidneys pre- and post-IV contrast or MRI examination recommended. Malignancy not excluded. Increased complexity.
Bilateral subcentimeter hyperdense renal lesions likely benign proteinaceous cysts. New
Tiny nonobstructing bilateral renal stones. New.
Findings suggestive of fecal impaction. Moderate rectal wall thickening. Stercoral colitis cannot excluded. Progressed.
Mild diffuse bladder wall thickening. This can be seen with cystitis or bladder outlet obstruction. Stable
--- NOTE | 2025-08-04 14:40 | CM ---
Chart reviewed. Off abx. Thoracentesis today.
Discussed w/ spouse yesterday, [facility] does not have any bed availability, neither does [facility]. Spouse agreeable to [facility]. Confirmed w/ [facility] admissions, a bed can be offered for patient tomorrow
CM called [facility] ([phone]), spoke w/ Jordyn to initiate auth. Requesting clinicals to be faxed in. Clinicals faxed to [phone]
Pending ref # [id number]
Patient will need insurance auth, forms on chart
IMM verbally reviewed, copy on chart
[facility]
Report: [phone]

Plan: D/c to [facility], pending auth approval------> WEEKEND CM TO CALL [facility] TO FOLLOW UP W/ AUTH DETERMINATION
[2025-08-04 15:09] VITALS: BP 114/63
[2025-08-04] MEDS: VIBRAMYCIN 100 MG PO ×2 (15:15→19:53)
[2025-08-04] MEDS: OMNICEF 300 MG PO ×2 (15:15→19:53)
[2025-08-04 23:00] VITALS: BP 126/63
[2025-08-05] MEDS: TYLENOL 650 MG PO (03:05)
[2025-08-05 03:07] VITALS: BMI 27.4
[2025-08-05] MEDS: SYNTHROID 50 MCG PO (05:07)
[2025-08-05 07:30] VITALS: BP 107/63
[2025-08-05] MEDS: METAMUCIL, KONSYL 1 PACKET PO (08:14)
[2025-08-05] MEDS: VIBRAMYCIN 100 MG PO ×2 (08:14→19:36)
[2025-08-05] MEDS: MUCINEX 600 MG PO ×2 (08:14→19:36)
[2025-08-05] MEDS: OMNICEF 300 MG PO ×2 (08:14→19:36)
[2025-08-05] MEDS: MIRALAX 17 GRAMS PO (08:14)
[2025-08-05] MEDS: SODIUM CHLORIDE 1 GRAM PO ×2 (08:14→19:36)
[2025-08-05] MEDS: PROTONIX 40 MG PO (08:48)
[2025-08-05] MEDS: HYDROPHOR 1 APPLIC TOPICAL (09:13)
[2025-08-05] MEDS: ANTIFUNGAL CLEAR 1 APPLIC TOPICAL ×2 (09:14→19:37)
--- NOTE | 2025-08-05 10:21 | W.PN.HOSP.TC ---
Today's Communication/Plan
-
Antibiotics. Discharge plan
Assessment / Plan
Assessment / Plan
Physical exam:
General: Acutely ill
HEENT: Normocephalic, Atraumatic and Moist Mucous Membranes
Respiratory: Clear to Auscultation; Negative Wheezes, Rales or Rhonchi
Cardiac: Regular Rhythm and S1/S2
GI: Soft, Nontender and Nondistended
Skin: Left lower extremity erythema and wounds improved substantially and residual edema remains. Mild tenderness.
Musculoskeletal: No Clubbing, No Cyanosis and No Edema
Neuro: Awake, Alert and Oriented, no neurological deficit
Psych: Calm
A/P:
Septic shock due to Streptococcus G bacteremia and left lower extremity cellulitis:
ID on board
NICOLE no evidence of endocarditis and CT scan no evidence of necrotizing fasciitis.
Latest blood cultures no growth
Pain control with Tylenol, Oxy oral and IV Dilaudid as needed
PT OT
Tried to reach but unable to reach today
Discussed with egg caser today
Recurrence of fevers likely due to Pneumonia:
Treat as community-acquired pneumonia
Continue cefdinir and doxycycline to complete 7 days course
Appreciated ID recommendations
Left pleural effusion:
Discussed with IR
S/p thoracentesis and results not indicative of empyema but rest of the studies will need follow-up especially cytology.
Hematochezia due to GI bleed in the setting of supratherapeutic INR:
Resolved and GI evaluated the patient.
On oral PPI and Metamucil and MiraLAX
Back on warfarin without further bleeding.
Permanent A-fib:
Pacemaker from AV block
Off rate control agents for more than 2 weeks and has not required anything
Continue anticoagulation with warfarin; INR 2.23 today
Orthostatic hypotension:
On midodrine 10 mg p.o. every 8 hours
TANA due to ATN:
Back to baseline after treatment of infection and fluid
Volume overload without evidence of CHF:
IV Lasix given during initial period of hospitalization but has not required any longer
Hypokalemia:
Repleted appropriately
Metabolic acidosis:
Resolved
Rhabdomyolysis:
Resolved
Hypothyroidism:
Continue levothyroxine 50 mcg p.o. daily
Thrombocytopenia:
Resolved
Transaminitis:
Improved
Coagulopathy with supratherapeutic INR:
Resolved
Hyponatremia:
Improved
Other medical problems:
Hypertension
Hyperlipidemia
Chronic venous stasis changes
Overreactive bladder
Rectal prolapse
Essential tremor
Constipation
Prostate cancer status post radical prostatectomy and radiation
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
History of thoracic aortic aneurysm
Complete heart block status post pacemaker
DVT prophylaxis:
On warfarin
Total time spent on today's encounter was 35 minutes which included time spent in counseling the patient/family regarding diagnosis and treatment plan as listed above, goals of care, and symptom management. Case was discussed with nursing staff,
specialists, and care coordinators/case management. All labs and imaging personally reviewed by me. Remainder the time spent in detailed review of previous records, lab data, imaging, and other medical provider documentation.
Anticipated Discharge: Within 24 hours
Subjective/Interval History
-
Date of Service: August 05, 2025
Patient doing well overall. Afebrile
Objective Data
-
Vital Signs:
Vital Signs
Temp Pulse Resp BP Pulse Ox
97.8 F 94 20 122/71 93
08/05/25 07:30 08/05/25 07:30 08/05/25 07:30 08/05/25 07:30 08/05/25 07:30
I&O
08/04/25 08/05/25 08/06/25
06:59 06:59 06:59
Intake Total 1200 / 1200 1450 / 1450
Output Total 1600 / 1600 2300 / 2300
Balance -400 / -400 -850 / -850
--- NOTE | 2025-08-05 12:39 | CM ---
Addendum entered by AVINASH Jain 08/05/25 15:38:
fax for Nelson Garnica is [phone]
Addendum entered by Ju Dubois 08/05/25 12:52:
Per [facility], [facility] can accept patient tomorrow after 2 PM
Plan Authorization # [id number]
[facility]
Report: [phone]

Original Note:
Plan: Discharge to [facility] today via ambulance
Authorization approved starting today, 08/05/2025 to 08/08/2025; Garment Cutter, Nelson Mora, email: [email or web address] Plan Authorization # [id number]
[facility]
Report:
[2025-08-05 15:00] VITALS: BP 114/69
[2025-08-05 23:06] VITALS: BP 112/63
[2025-08-05] MEDS: TUMS CHEWABLE TABLET 400 MG PO (23:53)
[2025-08-06] MEDS: SYNTHROID 50 MCG PO (05:55)
[2025-08-06 06:00] VITALS: BMI 27.1
[2025-08-06 06:50] VITALS: BP 134/71
[2025-08-06] MEDS: MIRALAX PO (07:44)
[2025-08-06] MEDS: METAMUCIL, KONSYL PO (07:44)
[2025-08-06] MEDS: OMNICEF 300 MG PO (07:46)
[2025-08-06] MEDS: VIBRAMYCIN 100 MG PO (07:46)
[2025-08-06] MEDS: SODIUM CHLORIDE 1 GRAM PO (07:46)
[2025-08-06] MEDS: PROTONIX 40 MG PO (07:46)
[2025-08-06] MEDS: MUCINEX 600 MG PO (07:46)
[2025-08-06] MEDS: MUCINEX PO (07:52)
[2025-08-06] MEDS: ANTIFUNGAL CLEAR 1 APPLIC TOPICAL (08:00)
[2025-08-06] MEDS: HYDROPHOR 1 APPLIC TOPICAL (08:00)
--- NOTE | 2025-08-06 09:51 | W.PN.HOSP.TC ---
Today's Communication/Plan
-
Discharge planning today
Assessment / Plan
Assessment / Plan
Physical exam:
General: No acute distress
HEENT: Normocephalic, Atraumatic and Moist Mucous Membranes
Respiratory: Clear to Auscultation; Negative Wheezes, Rales or Rhonchi
Cardiac: Regular Rhythm and S1/S2
GI: Soft, Nontender and Nondistended
Skin: Left lower extremity erythema and wounds improved substantially and residual edema remains. Mild tenderness.
Musculoskeletal: No Clubbing, No Cyanosis and No Edema
Neuro: Awake, Alert and Oriented, no neurological deficit
Psych: Calm
A/P:
Septic shock due to Streptococcus G bacteremia and left lower extremity cellulitis:
ID on board
NICOLE no evidence of endocarditis and CT scan no evidence of necrotizing fasciitis.
Latest blood cultures no growth
Pain control with Tylenol, Oxy oral and IV Dilaudid as needed
PT OT
I have talked to family prior
Discussed with community case manager
Plan to discharge today
Recurrence of fevers likely due to Pneumonia:
Treat as community-acquired pneumonia
Continue cefdinir and doxycycline to complete 7 days course
Appreciated ID recommendations
Left pleural effusion:
Discussed with IR
S/p thoracentesis and results not indicative of empyema but rest of the studies will need follow-up especially cytology.
Hematochezia due to GI bleed in the setting of supratherapeutic INR:
Resolved and GI evaluated the patient.
On oral PPI and Metamucil and MiraLAX
Back on warfarin without further bleeding.
Permanent A-fib:
Pacemaker from AV block
Off rate control agents for more than 2 weeks and has not required anything
Continue anticoagulation with warfarin; INR 2.23 today
Orthostatic hypotension:
On midodrine 10 mg p.o. every 8 hours
TANA due to ATN:
Back to baseline after treatment of infection and fluid
Volume overload without evidence of CHF:
IV Lasix given during initial period of hospitalization but has not required any longer
Hypokalemia:
Repleted appropriately
Metabolic acidosis:
Resolved
Rhabdomyolysis:
Resolved
Hypothyroidism:
Continue levothyroxine 50 mcg p.o. daily
Thrombocytopenia:
Resolved
Transaminitis:
Improved
Coagulopathy with supratherapeutic INR:
Resolved
Hyponatremia:
Improved
Other medical problems:
Hypertension
Hyperlipidemia
Chronic venous stasis changes
Overreactive bladder
Rectal prolapse
Essential tremor
Constipation
Prostate cancer status post radical prostatectomy and radiation
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
History of thoracic aortic aneurysm
Complete heart block status post pacemaker
DVT prophylaxis:
On warfarin
Total time spent on today's encounter was 35 minutes which included time spent in counseling the patient/family regarding diagnosis and treatment plan as listed above, goals of care, and symptom management. Case was discussed with nursing staff,
specialists, and care coordinators/case management. All labs and imaging personally reviewed by me. Remainder the time spent in detailed review of previous records, lab data, imaging, and other medical provider documentation.
Anticipated Discharge: Today
Subjective/Interval History
-
Date of Service: August 06, 2025
No new complaint. Remains afebrile
Objective Data
-
Vital Signs:
Vital Signs
Temp Pulse Resp BP Pulse Ox
98.4 F 77 18 134/71 97
08/06/25 06:50 08/06/25 06:50 08/06/25 06:50 08/06/25 09:04 08/06/25 06:50
I&O
08/05/25 08/06/25 08/07/25
06:59 06:59 06:59
Intake Total 1450 / 1450 810 / 810
Output Total 2300 / 2300 2099 / 2099
Balance -850 / -850 -1290 / -1290
--- NOTE | 2025-08-06 10:11 | CM ---
Addendum entered by Ju Dubois 08/06/25 11:04:
IMM on chart dated 09/04/25
Original Note:
Plan: Discharge to [facility] today via ambulance; package pick up scheduled between 2:30 AND 3:00 pm; facility liaison notified via phone
Report: [phone]
[2025-08-06] MEDS: TUMS CHEWABLE TABLET 400 MG PO (10:53)
--- NOTE | 2025-08-06 11:29 | W.DCSUMMARY ---
Discharge Summary
Discharge Data
Date of Admission: 07/17/25
Date of Discharge: 08/06/25
Total time spent discharging patient (in min): 35
-
Pending Results: Yes (Pleural fluid cytology)
Hospital Course
Patient is 80 years old male with significant and extensive past medical history some of which include A-fib, complete heart block with pacemaker, mitral valve repair secondary to bacterial endocarditis, aortic valve replacement with bioprosthetic
and aortic root dissection, thoracic aortic aneurysm, hypertension, essential tremors, prostate cancer status post prostatectomy and radiation, rectal prolapse, constipation, presented to the hospital with fever and generalized weakness and found to
be in septic shock. He had a prolonged hospital course. Multiple specialist saw him including tobacco sampler, ID, cardiology, GI. Patient initially treated aggressively with broad-spectrum antibiotics, pressors, supportive care. Patient had
multiorgan injury as well. He grew group G strep bacteremia his blood cultures. He had repeated blood cultures that were negative. He also had transient GI bleed in the setting of supratherapeutic INR and constipation. His Coumadin was reversed.
Down the road once he was more stable he was placed back on warfarin and he has been tolerating that well. He had NICOLE with no evidence of endocarditis. After he finishes course of treatment with antibiotics he continues to have spiking fevers.
The source of the recurrent fevers was felt to be a left lower lobe pneumonia. He also had a left pleural effusion and he had a thoracentesis and no evidence of empyema. He needs to follow-up pleural cytology as outpatient. The rest of his liver
function, kidney function, and rest of electrolytes improved and remained stable. Patient and participated with PT and OT and they recommended skilled rehab. Patient is going to skilled rehab today for further rehabilitation. He will be
discharged in stable condition today.
Discharge duration: 35 minutes
Discharge Plan
-
Patient Disposition: Residential/SNF
Discharge Diagnosis/Procedures: Septic shock. Left lower extremity cellulitis. Pneumonia. Left pleural effusion. Group G Streptococcus bacteremia. Acute kidney injury. Hematochezia. History of permanent atrial fibrillation. History of
orthostatic hypotension.
Diet: Low Cholesterol
Activity: As tolerated
Blood Work: Please PCP to order CBC, BMP, and INR within the next 3 to 5 days.
Activity Restrictions/Additional Instructions:
Wound Care Instructions
L medial lower leg: clean with saline, adaptic, alginate, abd pad and kerlix change daily and prn drainage.
Akbar wrap knee high daily remove at bedtime
leg elevation.
Mineral oil daily to both legs and feet daily after bathing.
buttocks: clean with soap and water, silicone foam change daily
Air mattress
offloading cushion when sitting
increase protein in diet
Follow up at wound care center call for an appointment.
Referrals:
Primary care provider [Other] - in less than 1 week
Andrey Turner MD [Active, Cardiology] - in four to six weeks
Vito Gonzalez MD [Active, Pulmonary Medicine] - in one to two months
Jaiden Saeed MD [Active, Gastroenterology] - in three to four weeks
UNKNOWN - PT DOES,NOT KNOW [Family Provider]
Prescriptions:
New
midodrine 5 mg Tablet
10 mg PO Q8 30 Days Qty: 180 0RF
pantoprazole 40 mg Tablet,Delayed Release (Dr/Ec)
40 mg PO DAILY 30 Days Qty: 30 0RF
cefdinir 300 mg Capsule
300 mg PO Q12 6 Days Qty: 12 0RF
oxycodone 5 mg Tablet
5 mg PO Q4HPRN PRN (Reason: moderate pain) Qty: 4 0RF
sodium chloride 1,000 mg Tablet,Soluble
1,000 mg PO BID 14 Days Qty: 28 0RF
acetaminophen 325 mg Tablet
650 mg PO Q4HPRN PRN (Reason: mild pain/MCKEON/temp> 100.4F) Qty: 20 0RF
doxycycline hyclate 100 mg Capsule
100 mg PO Q12 6 Days Qty: 12 0RF
warfarin 4 mg tablet
4 mg PO DAILY Qty: 30 0RF
Metamucil Fiber (aspartame) 3.4 gram Powder In Packet
1 packet PO DAILY 30 Days Qty: 30 0RF
guaifenesin [Mucinex] 600 mg tablet extended release 12hr
600 mg PO BID Qty: 30 0RF
Continued
pravastatin 40 MG tablet
40 mg PO HS
levothyroxine 50 MCG tablet
50 mcg PO DAILY
solifenacin [Vesicare] 10 MG tablet
10 mg PO HS
digoxin 0.125 MG tablet
0.125 mg PO DAILY
Held
methenamine hippurate 1 GRAM tablet
1 g PO BID
Hold Instructions: Resume on 08/14/25.
Discontinued
warfarin 5 mg Tablet
7.5 mg PO TUTH@1900
ibuprofen [Advil] 200 mg Tablet
400 mg PO Q8HPRN PRN (Reason: mild pain)
warfarin [Jantoven] 5 MG tablet
5 mg PO SUMOWEFRSA@1900
atenolol 25 MG tablet
25 mg PO HS
Discharge Orders:
Discharge Patient (As Directed); Ordered 08/06/25
Ordered By: Alex Kent
Discharge Date and Time
Print Language: SINHALA
[2025-08-06 13:02] LABS: ANA, HEp-2, IgG Detected (<1:80)
[2025-08-06 13:53] VITALS: BP 104/68
[2025-08-07 06:43] LABS: ANA Pattern Speckled; ANA Titer 1:160
[2025-08-07 06:44] LABS: Cytoplasmic Pattern Speckled; Cytoplasmic Pattern Titer 1:160
== END 2025-08-06 16:14 | DRG 871 ==
LOC: 4 WEST ACU 13:06
PROVIDERS: Internal Medicine; Internal Medicine Cardiovascular Disease; Nurse Practitioner Primary Care; Physician Assistant Medical; Radiology Vascular & Interventional Radiology; Student in an Organized Health Care Education/Training Program; ADMITTING PHYSICIAN Hospitalist; ATTENDING PHYSICIAN Hospitalist; CONSULT PHYSICIAN Internal Medicine; CONSULT PHYSICIAN Internal Medicine Critical Care Medicine; CONSULT PHYSICIAN Internal Medicine Gastroenterology; CONSULT PHYSICIAN Internal Medicine Infectious Disease; EMERGENCY PHYSICIAN Emergency Medicine
PROC: 30233K1 Transfusion of Nonautologous Frozen Plasma into Peripheral Vein, Percutaneous Approach (ICD-10-PCS; 2025-07-23)
PROC: B24BZZ4 Ultrasonography of Heart with Aorta, Transesophageal (ICD-10-PCS; 2025-07-28)
PROC: 0W9B3ZZ Drainage of Left Pleural Cavity, Percutaneous Approach (ICD-10-PCS; 2025-08-04)
DX: A40.8 Other streptococcal sepsis (principal); J18.9 Pneumonia, unspecified organism; R65.21 Severe sepsis with septic shock; N17.0 Acute kidney failure with tubular necrosis; I48.21 Permanent atrial fibrillation; L03.116 Cellulitis of left lower limb; M62.82 Rhabdomyolysis; E87.20 Acidosis, unspecified; K92.1 Melena; K62.6 Ulcer of anus and rectum; D68.32 Hemorrhagic disorder due to extrinsic circulating anticoagulants; E87.1 Hypo-osmolality and hyponatremia; J90 Pleural effusion, not elsewhere classified; K59.09 Other constipation; G25.0 Essential tremor; E03.9 Hypothyroidism, unspecified; R74.01 Elevation of levels of liver transaminase levels; D69.59 Other secondary thrombocytopenia; T45.515A Adverse effect of anticoagulants, initial encounter; I95.1 Orthostatic hypotension; E87.6 Hypokalemia; E87.70 Fluid overload, unspecified; E78.00 Pure hypercholesterolemia, unspecified; I10 Essential (primary) hypertension; I71.20 Thoracic aortic aneurysm, without rupture, unspecified; K62.3 Rectal prolapse; I27.20 Pulmonary hypertension, unspecified; I87.8 Other specified disorders of veins; I25.10 Atherosclerotic heart disease of native coronary artery without angina pectoris; R32 Unspecified urinary incontinence; N32.81 Overactive bladder; M19.90 Unspecified osteoarthritis, unspecified site; Z87.74 Personal history of (corrected) congenital malformations of heart and circulatory system; Z79.01 Long term (current) use of anticoagulants; Z95.0 Presence of cardiac pacemaker; Z95.3 Presence of xenogenic heart valve; Z11.52 Encounter for screening for COVID-19; Z85.46 Personal history of malignant neoplasm of prostate; Z92.3 Personal history of irradiation; Z86.79 Personal history of other diseases of the circulatory system; L27.0 Generalized skin eruption due to drugs and medicaments taken internally; T36.1X5A Adverse effect of cephalosporins and other beta-lactam antibiotics, initial encounter
CPT/HCPCS: 32555; 71045; 71046; 73701; 74176; 76705; 76882; 80048; 80053; 80162; 80202; 81003; 81015; 82150; 82248; 82533; 82550; 82728; 82945; 83605; 83615; 83735; 83880; 83986; 84100; 84157; 85025; 85027; 85610; 85652; 85730; 86038; 86039; 86140; 86430; 86431; 86850; 86900; 86901; 87015; 87040; 87045; 87046; 87070; 87077; 87086; 87147; 87205; 87207; 87324; 87427; 87449; 87502; 87811; 88112; 88305; 89051; 92526; 92610; 93005; 93306; 93312; 93320; 93325; 93971; 97110; 97163; 97167; 97530; 97535; P9045; P9059; Q9967

== ENCOUNTER → 2025-08-31 14:41 | Outpatient (REF) | payer MEDICARE, SELFPAY ==
[2025-08-31 16:26] LABS: Albumin 3.4 g/dl (3.5-5.0); Blood Urea Nitrogen 26 mg/dl (9-20); Calcium 9.0 mg/dl (8.4-10.2); Carbon Dioxide 26 mmol/L (22-30); Chloride 103 mmol/L (98-107); Glucose 104 mg/dl (70-99); Potassium 3.8 mmol/L (3.5-5.1); Sodium 139 mmol/L (135-145); eGFR > 60.00
== END ==
LOC: REG 14:41
PROVIDERS: ATTENDING PHYSICIAN Internal Medicine Cardiovascular Disease
DX: R60.0 Localized edema (principal)
CPT/HCPCS: 36415; 80069